=== PATIENT | female | born 1965 | race Caucasian/White ===

== ENCOUNTER 2020-11-20 14:02 | Emergency (ER) | payer MEDICAID, SELFPAY ==
[2020-11-20 14:12] VITALS: BP 133/83; PULSE 81; RESP 14; TEMP 37.3; O2SAT 97; BMI 26.4
--- NOTE | 2020-11-20 14:28 | ED.HEATRA ---
HPI - Head Injury General Chief complaint: Head Injury Stated complaint: HEAD INJ AT HOME Time Seen by Provider: 11/20/20 14:25 Source: patient Mode of arrival: ambulatory Limitations: no limitations History of Present Illness HPI Narrative: 55 yo female struck head on cabinet, no LOC, no AC therapy, no vomiting MD Complaint: head injury Onset (ago): minute(s) (just prior to arrival ) Mechanism of Injury: other (struck into cabinet) Place: home Loss of Consciousness: no Location of injury: parietal Severity: mild Quality: dull Radiation: none Other Injuries: none Associated symptoms: other (laceration) Related Data Previous Rx's Medication Instructions Recorded syobvfpzyg-rzixzovjbnqie-nrxa 1 tab PO Q6H PRN #20 tab 11/20/20 cyclobenzaprine 10 mg PO TID PRN #14 tab 11/20/20 ondansetron 4 mg PO Q8H PRN #20 tab 11/20/20 Allergies Allergy/AdvReac Type Severity Reaction Status Date / Time apple [APPLE] Allergy Severe ITCHING IN Verified 11/20/20 14:15 THROAT pollen extracts [POLLEN] Allergy Unknown NASAL Verified 11/20/20 14:15 SYMPTOMS HAIR DYE Allergy Unknown UNKNOWN Uncoded 06/18/20 15:53 Review of Systems Review of Systems: Constitutional : No Fever, No Chills, No Fatigue ENT/Mouth : No sore throat, No Rhinorrhea Eyes: No Eye Pain, No Swelling, No Redness Cardiovascular : No Chest Pain, No SOB Respiratory : No Cough, No Sputum Gastrointestinal : No Nausea, No Vomiting Genitourinary : No Dysuria, No Urinary Frequency, No Hematuria, Musculoskeletal : No joint pain, No Myalgias, No Joint Swelling Skin : No Skin Lesions, No rash, pos skin lac Neuro : No Weakness, No Numbness, No Dizziness, positive Headache Psych : No Anxiety/Panic, No Depression PMFSH Past Medical History Attestation statement: The following information was validated with the patient. Medical History Asthma Depression Gastritis High cholesterol HTN (hypertension) Vitamin D deficiency Social History Social History (Updated 11/20/20 @ 14:30 by Anna Richter DO) Smoking Status: Never smoker Advance Directives: No Advance Directives Information Provided: No Physical Exam Vital Signs: Vital Signs: Last Vital Signs Temp 99.2 F 11/20/20 14:12 Pulse 81 11/20/20 14:12 Resp 14 11/20/20 14:12 BP 133/83 11/20/20 14:12 Pulse Ox 97 11/20/20 14:12 Body Mass Index 26.4 Appearance: Alert. Oriented X3. No acute distress. Eyes: Pupils equal, round and reactive to light. ENT: Pharynx normal. L parietal dome 2cm linear laceration bleeding controlled Neck: Normal inspection. Neck supple. CVS: Normal heart rate and rhythm. Pulses normal. Respiratory: No respiratory distress. Breath sounds normal. Abdomen: Soft and nontender. Skin: Skin warm and dry. Normal skin color. Normal skin turgor. Extremities: No lower extremity edema. No calf ttp Neuro: Oriented X 3. No motor deficit. No sensory deficit. Procedures Laceration Laceration 1: Site: scalp Side (If applicable): left Size (cm): 2 Description: linear Depth: simple, single layer Pre-repair: wound explored and irrigated extensively Skin layer closed with: other (3 iban) MDM - Head Injury MDM Narrative Medical decision making narrative: 55 yo female struck head injury no AC therapy, no LOC - no vomiting GCS 15 does not need imaging wound repair and DC with precautions Discharge Plan Discharge Clinical Impression: Laceration Closed head injury Qualifiers: Encounter type: initial encounter Qualified Code(s): S09.90XA - Unspecified injury of head, initial encounter Patient Disposition: Home, Self-Care Instructions: Head Injury (ED), Staple Care (ED), Head Laceration (ED) Additional Instructions: return to ED for any worsening symptoms or concerns IBAN COME OUT IN 7 TO 10 DAYS Prescriptions: New cyclobenzaprine 10 mg tablet 10 mg PO TID PRN (Reason: muscle spasm) Qty: 14 RF: 0 mmjtbshjft-ktzgsgdpjpjif-ilfo 50-325-40 mg tablet 1 tab PO Q6H PRN (Reason: pain) Qty: 20 RF: 0 ondansetron 4 mg tablet,disintegrating 4 mg PO Q8H PRN (Reason: nausea and vomiting) Qty: 20 RF: 0 Print Language: Malay
== END 2020-11-20 14:59 | disposition home or self-care (01) ==
PROVIDERS: Emergency Provider Emergency Medicine
DX: S01.01XA Laceration without foreign body of scalp, initial encounter (principal); G44.309 Post-traumatic headache, unspecified, not intractable; W26.9XXA Contact with unspecified sharp object(s), initial encounter; Y93.9 Activity, unspecified; Y92.009 Unspecified place in unspecified non-institutional (private) residence as the place of occurrence of the external cause; Y99.9 Unspecified external cause status
CPT/HCPCS: 12001; 99283

== ENCOUNTER 2020-11-30 10:21 | Emergency (ER) | payer MEDICAID, SELFPAY ==
--- NOTE | 2020-11-30 10:42 | ED.RECABL ---
HPI - Recheck/Abnormal Lab/Rx General Chief Complaint: Skin/Abscess/Foreign Body Stated Complaint: suture removal head Time Seen by Provider: 11/30/20 10:42 Source: patient Mode of arrival: ambulatory Limitations: no limitations History of Present Illness MD complaint: suture/staple removal Initial visit (ago): day(s) (11/20) Initial visit for: laceration Returns today for: staple/stitch removal Symptoms since prior visit: no new symptoms Context: planned re-check Associated symptoms: none Related Data Previous Rx's Medication Instructions Recorded grylnknkym-gugghvvrtshty-dapv 1 tab PO Q6H PRN #20 tab 11/20/20 cyclobenzaprine 10 mg PO TID PRN #14 tab 11/20/20 ondansetron 4 mg PO Q8H PRN #20 tab 11/20/20 Allergies Allergy/AdvReac Type Severity Reaction Status Date / Time apple [APPLE] Allergy Severe ITCHING IN Verified 11/30/20 10:49 THROAT pollen extracts [POLLEN] Allergy Unknown NASAL Verified 11/30/20 10:49 SYMPTOMS HAIR DYE Allergy Unknown UNKNOWN Uncoded 06/18/20 15:53 Review of Systems Review of Systems: Constitutional : No Fever, No Chills, Cardiovascular : No Chest Pain, No SOB Respiratory : No Dyspnea Gastrointestinal : No abdominal pain Musculoskeletal : No Joint Swelling Skin : No rash, no skin laceration Neuro : No Weakness, No Numbness PMFSH Past Medical History Medical History Asthma Depression Gastritis High cholesterol HTN (hypertension) Vitamin D deficiency Social History Social History Smoking Status: Never smoker Physical Exam Vital Signs: Appearance: Alert. Oriented X3. No acute distress. Eyes: Pupils equal, round and reactive to light. ENT: Pharynx normal. well healing laceration on scalp wound margins together c/d/i no signs of infection Neck: Normal inspection. Neck supple. CVS: Normal heart rate and rhythm. Pulses normal. Respiratory: No respiratory distress. Breath sounds normal. Skin: Skin warm and dry. Normal skin color. Normal skin turgor. Neuro: Oriented X 3. No motor deficit. No sensory deficit. Procedures Procedure Narrative Procedure Narrative: patient consent, wound c/d/i good healing - removed 3 emeka without incident, patient tolerated well Discharge Plan Discharge Clinical Impression: Removal of emeka Patient Disposition: Home, Self-Care Instructions: Stitches Removal (ED) Additional Instructions: return to ED for any worsening symptoms or concerns Prescriptions: No Action cyclobenzaprine 10 mg tablet 10 mg PO TID PRN (Reason: muscle spasm) Qty: 14 RF: 0 wrdolyjszm-viuonkduqinhw-cplo 50-325-40 mg tablet 1 tab PO Q6H PRN (Reason: pain) Qty: 20 RF: 0 ondansetron 4 mg tablet,disintegrating 4 mg PO Q8H PRN (Reason: nausea and vomiting) Qty: 20 RF: 0 Print Language: St Helenian
[2020-11-30 10:47] VITALS: BP 147/59; PULSE 68; RESP 18; TEMP 36.6; O2SAT 96; BMI 25.6
== END 2020-11-30 11:01 | disposition home or self-care (01) ==
LOC: HO.ED 10:56
PROVIDERS: Emergency Provider Emergency Medicine
DX: S01.01XD Laceration without foreign body of scalp, subsequent encounter (principal); X58.XXXD Exposure to other specified factors, subsequent encounter; Z48.02 Encounter for removal of sutures
CPT/HCPCS: 99283

== ENCOUNTER 2021-01-05 12:39 | Outpatient (REF) | payer MEDICAID, SELFPAY ==
--- NOTE | ~2021-01-05 | MM_ITS ---
EXAMINATION: MM DIAGNOSTIC DIGITAL BREAST TOMOSYNTHESIS, BILATERAL CLINICAL INFORMATION: Short interval follow-up to establish new baseline post benign bilateral stereotactic biopsy 06/23/2020. The lifetime risk of breast cancer based on the Tyrer-Cuzick Model is 8%. COMPARISON: Mammography: 06/23/2020, 06/10/2020, 12/16/2019, 06/17/2019, 06/11/2019, 05/25/2018 TECHNIQUE: Digital breast tomosynthesis is performed in both the craniocaudal and mediolateral oblique views along with computer-aided detection (CAD). Synthesized 2D images are generated from the tomosynthesis. Additional bilateral magnification CC and bilateral magnification lateral views are provided. FINDINGS: The breasts are heterogeneously dense, which may obscure small masses (ACR BI-RADS breast composition Category c). Parenchymal pattern is similar to prior studies. There is a stable macrolobulated mass anterior medial left breast. Bilateral parenchymal asymmetries are stable. There is biopsy clip marker left breast upper outer quadrant and right breast medial quadrant. Scattered regional calcifications are again present upper outer left breast and central and upper outer right breast. There are no recurrent calcifications in the sampled areas. The axilla and skin contours are unremarkable. Results are provided to the patient at time of visit by the technologist. MM/MM tomosynthesis diagnostic BI IMPRESSION: No mammographic evidence of malignancy. ASSESSMENT: BI-RADS 2: Benign RECOMMENDATION: Routine annual mammography screening. This patient's information was entered into a reminder system with a target due date for their next mammogram.
== END 2021-01-05 12:40 | disposition home or self-care (01) ==
LOC: HO.MAMMO 12:39
PROVIDERS: Visit Provider Internal Medicine Geriatric Medicine
DX: Z98.890 Other specified postprocedural states (principal)
CPT/HCPCS: 77062; 77066

== ENCOUNTER 2021-12-16 10:11 | Outpatient (REF) | payer MEDICAID, SELFPAY ==
--- NOTE | 2021-12-16 10:15 | EMG_ITS ---
Left median and ulnar motor and sensory studies were performed. Left radial sensory study was performed and paraspinal muscles were tested. IMPRESSION: 1. 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 2. Mild left ulnar neuropathy across cubital tunnel. MD CLARI Woodson/SOTERO / [phone]
== END 2021-12-16 10:12 | disposition home or self-care (01) ==
LOC: HO.NEURO 10:11
PROVIDERS: PCP Internal Medicine Geriatric Medicine; Visit Provider Internal Medicine Geriatric Medicine
DX: G56.02 Carpal tunnel syndrome, left upper limb (principal)
CPT/HCPCS: 95886; 95909

== ENCOUNTER 2022-01-06 09:59 | Outpatient (REF) | payer MEDICAID, SELFPAY ==
--- NOTE | ~2022-01-06 | MM_ITS ---
EXAMINATION: MM SCREENING DIGITAL BREAST TOMOSYNTHESIS, BILATERAL CLINICAL INFORMATION: Screening. Asymptomatic. Status post bilateral benign stereotactic core biopsies. The lifetime risk of breast cancer based on the Tyrer-Cuzick Model is 4.5%. COMPARISON: Mammography: January 05, 2021 and studies dating back to February 11, 2014 TECHNIQUE: Digital breast tomosynthesis is performed in both the craniocaudal and mediolateral oblique views along with computer-aided detection (CAD). Synthesized 2D images are generated from the tomosynthesis. FINDINGS: The breasts are heterogeneously dense, which may obscure small masses (ACR BI-RADS breast composition Category c). There are no new significant masses, abnormal calcifications, or other abnormalities. There is multiplicity and bilaterality of calcifications again noted. There is stable circumscribed density about the anterior medial aspect of the left breast. MM/MM tomosynthesis screening BI IMPRESSION: There are no significant changes from prior study. ASSESSMENT: BI-RADS 2: Benign RECOMMENDATION: Routine annual mammography screening. This patient's information was entered into a reminder system with a target due date for their next mammogram.
== END 2022-01-06 10:00 | disposition home or self-care (01) ==
LOC: HO.MAMMO 09:59
PROVIDERS: PCP Internal Medicine Geriatric Medicine; Visit Provider Internal Medicine Geriatric Medicine
DX: Z12.31 Encounter for screening mammogram for malignant neoplasm of breast (principal)
CPT/HCPCS: 77063; 77067

== ENCOUNTER 2022-05-16 10:20 | Outpatient (REF) | payer MEDICAID, SELFPAY ==
--- NOTE | ~2022-05-16 | XR_ITS ---
EXAMINATION: XR SHOULDER, RIGHT CLINICAL INFORMATION: History of fall and decreased range of motion. COMPARISON: CXR from 12/23/2018. TECHNIQUE: Four views of the right shoulder. FINDINGS: No acute findings. The humeral head is well positioned over the intact glenoid. Glenohumeral joint space is maintained. No arthritic deformity, fracture or subluxation. Acromioclavicular joint is normal. The acromiohumeral and coracoclavicular distances are normal. Scapula is unremarkable. No calcium deposition within rotator cuff tendons. The right lung is normal. No pneumothorax or pleural effusion. XR/XR shoulder RT min 2V IMPRESSION: No fracture or subluxation. Normal right shoulder.
== END 2022-05-16 10:21 | disposition home or self-care (01) ==
LOC: HO.XRAY 10:20
PROVIDERS: PCP Internal Medicine Geriatric Medicine; Visit Provider Internal Medicine
DX: M25.511 Pain in right shoulder (principal); Z91.81 History of falling
CPT/HCPCS: 73030

== ENCOUNTER 2023-01-12 09:41 | Outpatient (REF) | payer MEDICAID, SELFPAY ==
--- NOTE | ~2023-01-12 | MM_ITS ---
EXAMINATION: MM SCREENING DIGITAL BREAST TOMOSYNTHESIS, BILATERAL CLINICAL INFORMATION: Screening. Asymptomatic. The lifetime risk of breast cancer based on the Tyrer-Cuzick Model is 5%. COMPARISON: Multiple prior exams including most recent, 01/06/2022. TECHNIQUE: Digital breast tomosynthesis is performed in both the craniocaudal and mediolateral oblique views along with computer-aided detection (CAD). Synthesized 2D images are generated from the tomosynthesis. FINDINGS: The breasts are heterogeneously dense, which may obscure small masses (ACR BI-RADS breast composition Category c). There are scattered bilateral asymmetries similar to prior exams. No developing density or interval mass or architectural abnormality. There is old biopsy clip marker mid upper outer quadrant left breast and posterior central 3:00 right breast. Scattered bilateral fine round calcifications are again seen. No abnormal calcifications. Chronic benign smooth oval nodule anterior 8:00 left breast is slightly decreased in size. The axilla are unremarkable. The skin contours are smooth. MM/MM tomosynthesis screening BI IMPRESSION: No mammographic evidence of malignancy. ASSESSMENT: BI-RADS 2: Benign RECOMMENDATION: Routine annual mammography screening. This patient's information was entered into a reminder system with a target due date for their next mammogram.
== END 2023-01-12 09:42 | disposition home or self-care (01) ==
LOC: HO.MAMMO 09:41
PROVIDERS: PCP Internal Medicine Geriatric Medicine; Visit Provider Internal Medicine Geriatric Medicine
DX: Z12.31 Encounter for screening mammogram for malignant neoplasm of breast (principal)
CPT/HCPCS: 77063; 77067

== ENCOUNTER 2023-02-17 09:47 | Outpatient (REF) | payer MEDICAID, SELFPAY ==
--- NOTE | ~2023-02-17 | XR_ITS ---
EXAMINATION: XR SHOULDER, LEFT CLINICAL INFORMATION: Left shoulder pain. COMPARISON: None available. TECHNIQUE: AP external rotation, scapular Y, and axillary views of the left shoulder. FINDINGS: Glenohumeral and acromioclavicular alignment is anatomic with normal joint space. No displaced fracture or dislocation. No abnormal soft tissue calcifications. XR/XR shoulder LT min 2V IMPRESSION: No acute abnormality.
== END 2023-02-17 09:48 | disposition home or self-care (01) ==
LOC: HO.HOSX 09:47
PROVIDERS: PCP Internal Medicine Geriatric Medicine; Visit Provider Physician Assistant
DX: M75.82 Other shoulder lesions, left shoulder (principal)
CPT/HCPCS: 20610; 73030; 99202; J1040

== ENCOUNTER 2023-09-02 11:00 | Emergency (ER) | payer MEDICAID, SELFPAY ==
--- NOTE | ~2023-09-02 | XR_ITS ---
EXAMINATION: XR CHEST CLINICAL INFORMATION: Chest radiograph 12/23/2018 COMPARISON: None available. TECHNIQUE: 2 views of the chest were obtained. FINDINGS: Redemonstrated elevated right hemidiaphragm. No focal consolidation. No pleural effusion or pneumothorax. Cardiomediastinal silhouette is unchanged. XR/XR chest 2V IMPRESSION: No acute cardiopulmonary abnormality.
[2023-09-02 11:27] VITALS: BP 133/76; PULSE 67; RESP 18; TEMP 36.6; O2SAT 96; BMI 25.5
--- NOTE | 2023-09-02 11:27 | ED.URI ---
HPI - URI/Sore Throat General Chief Complaint: Upper Respiratory Symptoms Stated Complaint: flu like symptoms Time Seen by Provider: 09/02/23 12:47 Source: patient Mode of arrival: ambulatory Limitations: no limitations History of Present Illness HPI Narrative: Patient is a 58-year-old female with past medical history of hypertension, migraine headache, GERD, asthma who presents emergency department for evaluation respiratory symptoms. She reports a intermittent productive cough, shortness of breath, intermittent headache, nasal congestion, SOB with coughing episodes. progressively worsening. Denies known sick contacts, but is around young grandchildren. Related Data Home Medications Medication Instructions Recorded Confirmed acetaminophen 500 mg tablet 1,000 mg PO Q8H PRN pain 02/17/23 02/18/23 albuterol sulfate 90 mcg/actuation 2 puff inhalation Q4-6H PRN 02/17/23 02/18/23 aerosol inhaler (Proventil HFA) amlodipine 5 mg tablet 5 mg PO DAILY 02/17/23 02/18/23 amoxicillin 500 mg capsule 500 mg PO Q8H 02/17/23 02/18/23 atorvastatin 20 mg tablet 20 mg PO DAILY 02/17/23 02/18/23 cetirizine 10 mg tablet 10 mg PO DAILY 02/17/23 02/18/23 cholecalciferol (vitamin D3) 50 50 mcg PO DAILY 02/17/23 02/18/23 mcg (2,000 unit) tablet fluticasone propionate 110 1 puff inhalation BID 02/17/23 02/18/23 mcg/actuation HFA aerosol inhaler (Flovent HFA) lorazepam 0.5 mg tablet 0.5 mg PO BID PRN anxiety 02/17/23 02/18/23 olopatadine 0.1 % eye drops 1 drp ophthalmic (eye) BID 02/17/23 02/18/23 pantoprazole 20 mg tablet,delayed 20 mg PO QAM 02/17/23 02/18/23 release trazodone 50 mg tablet 50 mg PO BEDTIME PRN insomnia 02/17/23 02/18/23 Previous Rx's Medication Instructions Recorded ihmuytfxdn-owkchzdfquxxd-fzjvxcad 1 tab PO Q6H PRN pain #20 tabs 11/20/20 50 mg-325 mg-40 mg tablet ondansetron 4 mg disintegrating 4 mg PO Q8H PRN nausea and 11/20/20 tablet vomiting #20 tabs albuterol sulfate 90 mcg/actuation 2 puff inhalation Q4-6H PRN 09/02/23 aerosol inhaler shortness of breath or wheezing #6.7 grams azithromycin 250 mg tablet See Rx Instructions PO .COMPLEX #6 09/02/23 tabs prednisone 20 mg tablet 20 mg PO DAILY #5 tabs 09/02/23 Allergies Allergy/AdvReac Type Severity Reaction Status Date / Time apple [APPLE] Allergy Severe ITCHING IN Verified 02/17/23 10:00 THROAT pollen extracts [POLLEN] Allergy Unknown NASAL Verified 02/17/23 10:00 SYMPTOMS HAIR DYE Allergy Unknown UNKNOWN Uncoded 06/18/20 15:53 Review of Systems Review of Systems: Yes all other systems are reviewed and are negative PMFSH Past Medical History Attestation statement: The following information was validated with the patient. Source: old records reviewed Medical History Vitamin D deficiency Depression Asthma Gastritis High cholesterol HTN (hypertension) Social History Social History (Updated 02/17/23 @ 10:04 by Nida Nielsen) Alcohol intake: former Patient Tobacco Use Status: Never used Tobacco Advance Directives: No Advance Directives Information Provided: No Current occupational status: disabled Current occupation: right hand dominant Physical Exam Vital Signs: Vital Signs: Last Vital Signs Temp 97.9 F 09/02/23 11:27 Pulse 67 09/02/23 11:27 Resp 18 09/02/23 11:27 BP 133/76 09/02/23 11:27 Pulse Ox 96 09/02/23 11:27 O2 Del Method Room Air 09/02/23 11:27 BMI result Body Mass Index 25.5 Appearance: Alert.?Oriented to person, place and time. No acute distress.?Normal affect. Eyes: Pupils equal, round and reactive to light.? ENT: Pharynx normal.?? Neck: Normal inspection.? Neck supple.?? CVS: Heart sounds normal. Normal heart rate and rhythm.? Pulses normal.?? Respiratory: No respiratory distress.? Lung sounds with rhonchi at the bilateral a bacillus. No increased work of breathing. Abdomen: Soft and non-tender. Normoactive bowel sounds. No pulsatile mass.?? Skin: Skin warm and dry.? Normal skin color.? Normal skin turgor.?? Extremities: No lower extremity edema.? No calf ttp? Neuro: Moves all extremities spontaneously. Sensation intact bilaterally. Ambulates with normal steady gait. Medical Decision Making Medical Decision Making [facility] Narrative: Patient is a 58-year-old female presenting for evaluation of upper respiratory symptoms. COVID-19/influenza/RSV testing is negative. Chest x-ray without acute cardiopulmonary process. At this time history and physical exam not consistent with ACS/PE. Well-appearing, nontoxic, afebrile, no tachycardia or tachypnea/hypoxia. Symptoms at this time consistent with bronchitis. Speaking clear full sentences, ambulatory with steady gait. Discussed conservative treatment including rest, hydration, Tylenol/ibuprofen as needed for fever and body aches, saline nasal spray, humidifier, gegl-pwm-zbbiheh cold medication in addition have sent prescriptions for prednisone, albuterol, and azithromycin to pharmacy. Advised to follow-up with primary care provider as needed, discussed reasons to return back to the emergency department. All questions were answered. Patient discharged home in stable condition. Provided with a return to work/school note. Differential Diagnosis Differential Diagnoses: The differential diagnosis associated with the presentation includes (As noted above) Lab Data [facility] Lab Attestation statement: I reviewed the patient's lab results. (As noted above) Labs: Lab Results 09/02/23 Range/Units 11:42 Influenza Type A (PCR) NEGATIVE (Negative) Influenza Type B (PCR) NEGATIVE (Negative) RSV RNA Qual (PCR) NEGATIVE (Negative) SARS-CoV-2 RNA (RT-PCR) NEGATIVE (Negative) Independent Interpretation I performed an independent interpretation of an: Plain X-Ray (I personally interpreted chest x-ray and agree with radiologist impression) Radiology Impression Discussion of test interpretation with radiology: I have reviewed the radiologist's reading. Radiologist Impression: XR/XR chest 2V IMPRESSION: No acute cardiopulmonary abnormality. External Record Review External record reviewed: Outpatient record Prescription Management I considered prescription management with: Antibiotic Discharge Plan Discharge Clinical Impression: Bronchitis Patient Disposition: Home, Self-Care Instructions: Acute Bronchitis (ED) Prescriptions: New prednisone 20 mg tablet 20 mg PO DAILY Qty: 5 0RF azithromycin 250 mg tablet See Rx Instructions .ROUTE .COMPLEX Qty: 6 0RF Rx Instructions: For 250 mg dose pack: take 500 mg today (day 1), then 250 mg for 4 days (days 2-5) albuterol sulfate 90 mcg/actuation HFA aerosol inhaler 2 puff inhalation Q4-6H PRN (Reason: shortness of breath or wheezing) Qty: 6.7 0RF No Action afjxzolfke-fluyonhporoph-alxp 50-325-40 mg tablet 1 tab PO Q6H PRN (Reason: pain) Qty: 20 0RF ondansetron 4 mg tablet,disintegrating 4 mg PO Q8H PRN (Reason: nausea and vomiting) Qty: 20 0RF amlodipine 5 mg tablet 5 mg PO DAILY cetirizine 10 mg tablet 10 mg PO DAILY atorvastatin 20 mg tablet 20 mg PO DAILY lorazepam 0.5 mg tablet 0.5 mg PO BID PRN (Reason: anxiety) trazodone 50 mg tablet 50 mg PO BEDTIME PRN (Reason: insomnia) acetaminophen 500 mg tablet 1,000 mg PO Q8H PRN (Reason: pain) pantoprazole 20 mg tablet,delayed release (DR/EC) 20 mg PO QAM amoxicillin 500 mg capsule 500 mg PO Q8H cholecalciferol (vitamin D3) 50 mcg (2,000 unit) tablet 50 mcg PO DAILY albuterol sulfate [Proventil HFA] 90 mcg/actuation HFA aerosol inhaler 2 puff inhalation Q4-6H PRN fluticasone propionate [Flovent HFA] 110 mcg/actuation HFA aerosol inhaler 1 puff inhalation BID olopatadine 0.1 % drops 1 drp ophthalmic (eye) BID Referrals: Name,MD Storm [Primary Care Provider] - Interventions: ED Discharge Assessment Last Done: 09/02/23 13:08 Discharge Date/Time: 09/02/23 13:08
[2023-09-02 12:31] LABS: Influenza A PCR NEGATIVE (Negative); Influenza B PCR NEGATIVE (Negative); Resp Syncy Virus RNA Qual PCR NEGATIVE (Negative); SARS COV2 PCR INHOUSE NEGATIVE (Negative)
== END 2023-09-02 13:08 | disposition home or self-care (01) ==
PROVIDERS: Nurse Practitioner Family; Emergency Provider Emergency Medicine; PCP Internal Medicine Geriatric Medicine
DX: J40 Bronchitis, not specified as acute or chronic (principal); Z20.822 Contact with and (suspected) exposure to COVID-19; Z20.828 Contact with and (suspected) exposure to other viral communicable diseases
CPT/HCPCS: 0241U; 71046; 99282; 99283

== ENCOUNTER 2023-10-05 15:18 | Emergency (ER) | payer MEDICAID, SELFPAY | END 2023-10-05 17:55 | disposition left against medical advice (07) | PROVIDERS: Emergency Provider Emergency Medicine; PCP Internal Medicine Geriatric Medicine | DX: R50.9 Fever, unspecified (principal); J40 Bronchitis, not specified as acute or chronic; Z53.21 Procedure and treatment not carried out due to patient leaving prior to being seen by health care provider ==

== ENCOUNTER 2023-10-16 10:51 | Outpatient (AMB) | payer MEDICAID, SELFPAY ==
--- NOTE | 2023-10-16 10:59 | MHC.OFFVIS ---
Intake Intake Visit Reasons: ov- left shoulder pain Intake Note: Merna is a 57 year old right hand dominant female who presents today for a evaluation for her left shoulder pain, last injection 02/17/23 helped and would like to repeat injection today. Patient also mentioned she has a left wrist ganglion cyst that has grown in size since approx March 2023. States she would like to have this removed. Allergies apple [APPLE] Allergy (Severe, Verified 02/17/23 10:00) ITCHING IN THROAT pollen extracts [POLLEN] Allergy (Unknown, Verified 02/17/23 10:00) NASAL SYMPTOMS HAIR DYE Allergy (Unknown, Uncoded 06/18/20 15:53) UNKNOWN HPI ov- left shoulder pain HPI Details 58-year-old right hand dominant female who returns to the office today with an cardiac/vascular sonographer for a follow-up of left shoulder pain. She continues to have pain in her left shoulder which radiates up to her neck. Her pain is aggravated with sleeping at her sides. She has not had started with physical therapy. She has her last injection on 02/17/23 which provided her relief for about 4 months. She would like to repeat the injection. She also c/o a cyst on her left wrist which has grown in size since March 2023. She would like to have the cyst removed. [facility] Medical History Vitamin D deficiency Depression Asthma Gastritis High cholesterol HTN (hypertension) Social History (Updated 02/17/23 @ 10:04 by Nida Nielsen) Alcohol intake: former Patient Tobacco Use Status: Never used Tobacco Current occupational status: disabled Current occupation: right hand dominant Review of Systems Const All systems reviewed & are unremarkable except as noted in HPI and below Physical Exam Const General: cooperative, healthy appearing, comfortable, no acute distress, well developed and alert Orientation/consciousness: patient oriented x3 HEENT Head: Yes normal to inspection, Yes normocephalic and Yes atraumatic Eyes General: appearance normal, both eyes and all related structures Resp Effort & Inspection: normal respiratory effort and able to speak in complete sentences Cardio Rate: regular rate Peripheral pulses: Peripheral pulses 2+ throughout GI Palpation (GI): Soft to palpation Skin Lesions: no lesions Rashes: no rashes Neuro General: patient oriented x3 Extrem Other: Left shoulder normal to inspection. Tenderness over the bicipital groove and along the deltoid region of the shoulder. Forward flexion to 175, external rotation to 90, internal rotation to S1. 5/5 RTC strength. Clay Landin. NVI. Office Procedures Joint Injection/Drain Joint Injection/Drain Primary Site: left shoulder Prep: site was prepped using aseptic technique, ethochloride spray was applied and injection warnings given Injected: 80 mg of, DepoMedrol, with 8 mL of, 1% plain lidocaine and in the subcromial space Approach Used: posterolateral Procedure: The patient tolerated the procedure well and there was some relief with the local anesthesia Coding 53576 - Glenohumeral/Tronchanteric Bursa/Intraarticular Procedure code (CPT) selection complete Assessment & Plan Assessment & Plan (1) Tendonitis of left rotator cuff: Code(s): M75.82 - Other shoulder lesions, left shoulder Plan We discussed options today which include steroid injection. They did consent to move forward with the left shoulder injection, which was tolerated well. I recommended rest, ice and elevation and OTC anti-inflammatories PRN for discomfort. If symptoms persist or worsens over the next 6-8 weeks, patient will contact the office, otherwise follow-up as needed. Orders: Orders PT Evaluation and Treatment Today M75.82 - Other shoulder lesions, left shoulder Patient Instructions: Scribed for Fawad Mccurdy PA-C, by Evert Sutton medical artist, on 10/16/2023 at 11:00 AM ALISSA. Fawad Garrett PA-C, have personally reviewed and agree with the information entered by the scribe. Coding Level of Care Code Est Pt Level 3 (13766) Diagnoses Tendonitis of left rotator cuff M75.82 CPT Codes Coding - Joint 7: 22476 - Glenohumeral/Tronchanteric Bursa/Intraarticular ([id number])
== END 2023-10-16 11:45 | disposition home or self-care (01) ==
PROVIDERS: PCP Internal Medicine Geriatric Medicine; Visit Provider Physician Assistant
DX: M75.82 Other shoulder lesions, left shoulder (principal)
CPT/HCPCS: 20610; 99213

== ENCOUNTER → 2023-10-16 10:51 | Outpatient (BNVA) | payer MEDICAID, SELFPAY | PROVIDERS: PCP Internal Medicine Geriatric Medicine; Visit Provider Physician Assistant | DX: M75.82 Other shoulder lesions, left shoulder (principal) | CPT/HCPCS: 20610; 99212; J1040 ==

== ENCOUNTER 2023-10-31 13:39 | Outpatient (RCR) | payer MEDICAID, SELFPAY ==
--- NOTE | 2023-10-31 14:45 | MHC.PT.EP ---
[facility] [place] Office [place] Office [place] Office [address] [place] [address] [phone] F: [phone] F: [phone] F: [phone] F: [phone] Physical Therapy Plan of Care Date of Evaluation: 10/31/23 Date of Surgery: N/A Diagnosis: tendonitis of left shoulder (RL) Assessment: pt is a 58 y/o female presenting to physical therapy w/ referring diagnosis of tendinitis of left shoulder cuff. Impairments include pain, decreased range of motion, decreased strength, impaired functional mobility, impaired postural awareness, and altered ambulation mechanics. pt is a good candidate for skilled PT due to age, potential remediation of impairments, typical disease/condition progression and prognosis, comorbidities, and motivation. pt would benefit from skilled PT intervention to provide a tailored strengthening and stretching exercise program, functional training, gait training, postural re-training, neuromuscular re-education, modalities as needed for pain, equipment safety demonstration. Frequency and Duration: The patient will be seen 2x/wk for 4 wks Short Term Goals: pt will be I w/ HEP to promote self-management of condition. pt will demo proper sitting posture w/ lumbar roll to promote neutral spine w/ seated ADLs. Residential Goals: pt will report a statistically significant improvement in self-reported outcome measure, SPADI, to promote return to PLOF. pt will improve B shoulder flexion by at least 15 degrees to promote ease in reaching for objects on higher shelves. Treatment Plan: Modalities to reduce pain, spasms and effusion. Manual therapy to restore motion and function. Therapeutic exercise to improve strength and flexibility. Neuromuscular re-education for posture and balance. Therapeutic activities to return to functional activities of daily living. Electronically signed by: Ashlyn Duran PT, DPT Please sign and return to therapist. Thank you for your referral.
--- NOTE | 2023-11-16 10:35 | MHC.PT.DC ---
[facility] [place] Office [place] Office [place] Office [address] [place] [address] [facility] [phone] F: [phone] F: [phone] F: [phone] F: [phone] Physical Therapy Discharge Report Diagnosis: tendonitis of left shoulder (RL) Date of Surgery: N/A Date of Evaluation: 10/31/23 Date of Discharge: 11/16/23 Treatments to Date: 1 Cancellations to Date: 3 No Shows to Date: 2 Discharge Status: Visit Non-compliance Discharge Summary: The patient has not attended any of her scheduled follow-ups after the initial evaluation. She is discharged for attendance non-compliance. Electronically signed by: Ashlyn Duran PT, DPT Please sign and return to therapist. Thank you for your referral.
== END 2023-11-16 10:35 | disposition home or self-care (01) ==
LOC: HO.PT 13:39
PROVIDERS: PCP Internal Medicine Geriatric Medicine; Visit Provider Physician Assistant
DX: M75.82 Other shoulder lesions, left shoulder (principal)
CPT/HCPCS: 97110; 97162

== ENCOUNTER 2023-11-14 14:35 | Outpatient (AMB) | payer MEDICAID, SELFPAY ==
--- NOTE | 2023-11-14 15:29 | MHC.OFFVIS ---
Intake Vital Signs 11/14/23 15:30 Height 5 ft 1 in Weight 135 lb BMI 25.5 Handedness Right Intake Visit Reasons: Newprob-Eval Lt wrist ganglion Intake Note: Merna is a 58 year old right hand dominant female who presents today for a evaluation of her left wrist pain. Patient reports that she noticed a lump on the wrist for about a year. She states with movements her pain is worse and she notices that it gets bigger as well. Allergies apple [APPLE] Allergy (Severe, Verified 11/14/23 15:34) ITCHING IN THROAT pollen extracts [POLLEN] Allergy (Unknown, Verified 11/14/23 15:34) NASAL SYMPTOMS HAIR DYE Allergy (Unknown, Uncoded 06/18/20 15:53) UNKNOWN HPI Newprob-Eval Lt wrist ganglion HPI Details Merna is a 58 year old right hand dominant Mongolian speaking woman who presents to discuss a painful left volar wrist mass. She says this has been present for ~1 year now, changing in size, and causing her pain with use or motion of her wrist. She is concerned this mass may be related to her left RTC tendinitis She would like to discuss treatment options. She denies any numbness. [facility] Medical History Vitamin D deficiency Depression Asthma Gastritis High cholesterol HTN (hypertension) Social History Alcohol intake: former Patient Tobacco Use Status: Never used Tobacco Current occupational status: disabled Current occupation: right hand dominant Review of Systems Const All systems reviewed & are unremarkable except as noted in HPI and below Physical Exam Vital Signs: BMI result Body Mass Index 25.5 Const General: cooperative, healthy appearing and no acute distress Orientation/consciousness: patient oriented x3 HEENT Head: Yes normocephalic and Yes atraumatic Eyes EOM: EOMs intact bilaterally Resp Effort & Inspection: normal respiratory effort and able to speak in complete sentences Cardio Jugular venous distension: no JVD Skin General skin exam: turgor normal Rashes: no rashes Neuro General: patient oriented x3 Extrem Other: Evaluation of Left Upper Extremity: The patient is alert, oriented, and in no acute distress Neuro: Median, Ulnar, Radial nerves motor and sensory grossly intact. Vascular: Cap refill brisk ROM: She can make a fist and extend all her digits No locking or catching Skin: No lacerations or abrasions. General: No Ecchymosis. No Erythema or evidence of infection. There is a mass on the volar aspect of her left wrist, ~2.5cm proximal to the distal wrist crease radial to the FCR tendon. This measures ~1cm in diameter. Good fill from the ulnar side with Kamran's test. I can feel her radial pulse associated with the ganglion Psych Appearance: grossly normal Affect: normal affect Attitude: cooperative Assessment & Plan Assessment & Plan (1) Ganglion cyst of volar aspect of left wrist: Code(s): M67.432 - Ganglion, left wrist (2) Heart murmur: Code(s): R01.1 - Cardiac murmur, unspecified Plan Assessment & Plan: 1. Left volar wrist ganglion ~2.5cm proximal to the distal wrist crease Measuring ~1cm in diameter I educated her about this condition I discussed operative and non-operative treatment options The patient would like to proceed with surgery The risks and benefits of operative treatment were discussed with the patient and the patient wishes to proceed with surgery. These risks include, but are not limited to risk of damage to blood vessels, nerves, tendons, infection, recurrence, incomplete relief of preoperative symptoms, persistent pain, possible need for further surgery and the risks associated with regional blocks and anesthesia. The plan is to take the patient to the operating room sometime in the next few weeks for the following procedures: 1. Left volar wrist ganglion excision, under general All of the preoperative paperwork including the consent was reviewed today. All the patient's questions were answered. The patient understands that they will be contacted by our assistant professor of surgery soon to schedule this procedure She denies Diabetes, blood thinners, asthma, lung, kidney issues She says she has a hx of a heart murmur, and she will need cardiac clearance prior to surgery Scribed for Emani Chavez MD by Mohan Armstrong medical professionals, on 11/14/23 at 3:55 PM, EST. Coding Level of Care Code New Pt Level 4 (03854) Diagnoses Ganglion cyst of volar aspect of left wrist M67.432 Heart murmur R01.1
[2023-11-14 15:30] VITALS: BMI 25.5
== END 2023-11-14 16:15 | disposition home or self-care (01) ==
PROVIDERS: PCP Internal Medicine Geriatric Medicine; Visit Provider Orthopaedic Surgery
DX: M67.432 Ganglion, left wrist (principal); R01.1 Cardiac murmur, unspecified
CPT/HCPCS: 99204

== ENCOUNTER → 2023-11-14 14:35 | Outpatient (BNVA) | payer MEDICAID, SELFPAY | PROVIDERS: PCP Internal Medicine Geriatric Medicine; Visit Provider Orthopaedic Surgery | DX: M67.432 Ganglion, left wrist (principal); R01.1 Cardiac murmur, unspecified | CPT/HCPCS: 99202 ==

== ENCOUNTER 2024-01-12 09:40 | Outpatient (REF) | payer MEDICAID, SELFPAY ==
[2024-01-12 12:50] LABS: Alanine Aminotransferase 14 U/L (0-31); Albumin Level 4.2 g/dL (3.5-5.0); Alkaline Phosphatase 78 U/L (39-117); Anion Gap 11 (12-20); Aspartate Amino Transferase 21 U/L (5-31); Bilirubin Total 0.5 mg/dL (0.0-1.0); Blood Urea Nitrogen 15 mg/dL (9-16); Carbon Dioxide 25 mmol/L (22-29); Chloride 109 mmol/L (96-108); Cholesterol 123 mg/dL (<200); Estimated Glomerular Filt Rate > 60; Glucose Random 86 mg/dL (60-115); HDL Cholesterol 43 mg/dL (>40); LDL Cholesterol Calculated 48 mg/dL (<100); Potassium 4.1 mmol/L (3.3-5.1); Sodium 141 mmol/L (135-145); Total Protein 7.3 g/dL (6.5-8.0); Triglycerides 160 mg/dL (<150)
== END 2024-01-12 09:41 | disposition home or self-care (01) ==
LOC: HO.HHCL 09:40
PROVIDERS: Visit Provider Internal Medicine Geriatric Medicine
DX: E78.00 Pure hypercholesterolemia, unspecified (principal)
CPT/HCPCS: 36415; 80053; 80061

== ENCOUNTER 2024-01-16 11:35 | Outpatient (REF) | payer MEDICAID, SELFPAY ==
--- NOTE | ~2024-01-16 | MM_ITS ---
EXAMINATION: MM SCREENING DIGITAL BREAST TOMOSYNTHESIS, BILATERAL CLINICAL INFORMATION: Screening. Asymptomatic. COMPARISON: Mammography: This study is compared with prior exams dating back to 2019. TECHNIQUE: Digital breast tomosynthesis is performed in both the craniocaudal and mediolateral oblique views along with computer-aided detection (CAD). Synthesized 2D images are generated from the tomosynthesis. FINDINGS: The breasts are heterogeneously dense, which may obscure small masses (ACR BI-RADS breast composition Category c). There are no significant masses, abnormal calcifications, or other abnormalities. There are tissue markers in each breast from prior benign percutaneous biopsies. Few, bilateral benign calcifications are present. MM/MM tomosynthesis screening BI IMPRESSION: No mammographic evidence of malignancy. ASSESSMENT: BI-RADS BI-RADS 2 - Benign Findings RECOMMENDATION: Routine annual mammography screening. 1 year F/U This examination should not preclude the clinical evaluation of a suspicious palpable abnormality. This patient's information was entered into a reminder system with a target due date for their next mammogram.
== END 2024-01-16 11:36 | disposition home or self-care (01) ==
LOC: HO.MAMMO 11:35
PROVIDERS: PCP Internal Medicine Geriatric Medicine; Visit Provider Internal Medicine Geriatric Medicine
DX: Z12.31 Encounter for screening mammogram for malignant neoplasm of breast (principal)
CPT/HCPCS: 77063; 77067

== ENCOUNTER → 2024-01-16 12:30 | Outpatient (BNV) | payer MEDICAID, SELFPAY | PROVIDERS: PCP Internal Medicine Geriatric Medicine; Visit Provider Radiology Diagnostic Radiology | DX: Z12.31 Encounter for screening mammogram for malignant neoplasm of breast (principal) | CPT/HCPCS: 77063; 77067 ==

== ENCOUNTER 2024-08-07 15:23 | Outpatient (AMB) | payer MEDICAID, SELFPAY ==
--- NOTE | 2024-08-07 15:26 | A.OFFVIS_ITS ---
Intake Visit Reasons: OV Lt shoulder injection, last injection 10/16/23 Intake Note: Merna a 59 year old female who presents today for a left shoulder injection, last injection 10/16/23. Patient reports last injection provided her with relief for 3 months. She is requesting to repeat injection. Allergies apple [APPLE] Allergy (Severe, Verified 11/14/23 15:34) ITCHING IN THROAT pollen extracts [POLLEN] Allergy (Unknown, Verified 11/14/23 15:34) NASAL SYMPTOMS HAIR DYE Allergy (Unknown, Uncoded 06/18/20 15:53) UNKNOWN Medication List - Last Reconciled 08/08/24 by Fawad Mccurdy PA-C acetaminophen 1,000 mg PO Q8H PRN albuterol sulfate 90 mcg/actuation 2 puffs inhalation Q4-6H PRN albuterol sulfate 90 mcg/actuation (Proventil HFA) 2 puffs inhalation Q4-6H PRN amlodipine 5 mg PO DAILY amoxicillin 500 mg PO Q8H atorvastatin 20 mg PO DAILY azithromycin For 250 mg dose pack: take 500 mg today (day 1), then 250 mg for 4 days (days 2-5) sxtyxuobem-cuvowpepzhack-gnly 50-325-40 mg 1 tab PO Q6H PRN cetirizine 10 mg PO DAILY cholecalciferol (vitamin D3) 50 mcg PO DAILY fluticasone propionate 110 mcg/actuation (Flovent HFA) 1 puff inhalation BID lorazepam 0.5 mg PO BID PRN olopatadine 0.1% 1 drp ophthalmic (eye) BID ondansetron 4 mg PO Q8H PRN pantoprazole 20 mg PO QAM prednisone 20 mg PO DAILY trazodone 50 mg PO BEDTIME PRN HPI HPI OV Lt shoulder injection, last injection 10/16/23: Details: 59-year-old female who returns to the office today for a follow-up of left shoulder pain. She had her last injection on 10/16/23 that provided her relief for 3 months. She would like to repeat the injection. [facility] Medical History Vitamin D deficiency Depression Asthma Gastritis High cholesterol HTN (hypertension) Social History Alcohol intake: former Patient Tobacco Use Status: Never used Tobacco Current occupational status: disabled Current occupation: right hand dominant Review of Systems Const All systems reviewed & are unremarkable except as noted in HPI and below Physical Exam Const General: cooperative, healthy appearing, comfortable, no acute distress, well developed and alert Orientation/consciousness: patient oriented x3 HEENT Head: Yes normal to inspection, Yes normocephalic and Yes atraumatic Eyes General: appearance normal, both eyes and all related structures Resp Effort & Inspection: normal respiratory effort and able to speak in complete sentences Cardio Rate: regular rate Peripheral pulses: Peripheral pulses 2+ throughout GI Palpation (GI): Soft to palpation Skin Lesions: no lesions Rashes: no rashes Neuro General: patient oriented x3 Extrem Other: Left shoulder normal to inspection. Tenderness over the bicipital groove and along the deltoid region of the shoulder. Forward flexion to 175, external rotation to 90, internal rotation to S1. 5/5 RTC strength. Postive Landin. NVI. Office Procedures AMB Joint Injection/Aspiration Joint Injection/Aspiration Primary Site: left shoulder Prep: site was prepped using aseptic technique, ethochloride spray was applied and injection warnings given Injected: 80 mg of, DepoMedrol, with 8 mL of, 1% plain lidocaine and in the subcromial space Approach Used: posterolateral Procedure: The patient tolerated the procedure well and there was some relief with the local anesthesia Coding 63152 - Glenohumeral/Tronchanteric Bursa/Intraarticular Procedure code (CPT) selection complete Assessment & Plan Assessment & Plan (1) Tendonitis of left rotator cuff: Code(s): M75.82 - Other shoulder lesions, left shoulder Category: Medical Plan We discussed options today, which include steroid injection. The patient did consent to move forward with the left shoulder injection, which was tolerated well. I recommended rest, ice, and elevation and OTC anti-inflammatories as needed for discomfort. If symptoms persist or worsens over the next 6-8 weeks, patient will contact the office, otherwise follow-up as needed. Patient Instructions: Scribed for Fawad Mccurdy PA-C, by Evert Sutton medical record retrieval specialist, on 08/07/2024 at 3:30 PM EST.? I, Fawad Mccurdy PA-C, have personally reviewed and agree with t he information entered by the scribe. Coding Level of Care Code Est Pt Level 3 (31742) Complex EM visit Add On G2211 Diagnoses Tendonitis of left rotator cuff M75.82 CPT Codes Coding - Joint 7: 38644 - Glenohumeral/Tronchanteric Bursa/Intraarticular ([id number])
== END 2024-08-07 15:48 | disposition home or self-care (01) ==
LOC: HO.HOS 15:24
PROVIDERS: PCP Internal Medicine Geriatric Medicine; Visit Provider Physician Assistant
DX: M75.82 Other shoulder lesions, left shoulder (principal)
CPT/HCPCS: 20610; 99213

== ENCOUNTER → 2024-08-07 15:23 | Outpatient (BNVA) | payer MEDICAID, SELFPAY | PROVIDERS: PCP Internal Medicine Geriatric Medicine; Visit Provider Physician Assistant | DX: M75.82 Other shoulder lesions, left shoulder (principal); M25.512 Pain in left shoulder | CPT/HCPCS: 20610; 99212; J1010; J2003 ==

== ENCOUNTER 2024-11-18 15:01 | Emergency (ER) | payer MEDICAID, SELFPAY ==
[2024-11-18 15:42] VITALS: BP 142/72; PULSE 71; RESP 19; TEMP 36.6; O2SAT 99; BMI 26.4
--- NOTE | 2024-11-18 15:43 | ED.ALLEREA ---
HPI - Allergic Reaction General Chief complaint: General Medical Stated complaint: Allergic Reaction to Hair Dye Source: patient and RN notes reviewed Mode of arrival: ambulatory Limitations: no limitations History of Present Illness ED Provider: eWndi Hand PA-C HPI narrative: This is a 59-year-old female who presents emergency department with complaints of itchy scalp. Patient states that she has had allergic reactions to hair dyes in the past, and states that several days ago she dyed her hair. She states that she has had increased swelling, and itchiness to her scalp since. Denies any difficulty breathing or swallowing. Denies taking any medications at home to treat her current symptoms. No other complaints or concerns at this time. MD complaint: allergic reaction and hives Onset (ago): day(s) Exposure: other (Hair dye) Known history of allergy to: Hair dye Symptoms: itching Severity: moderate Treatment prior to arrival: none Previous Allergic Reaction History: none Related Data Home Medications ?Medication ?Instructions ?Recorded ?Confirmed acetaminophen 500 mg tablet 1,000 mg PO Q8H PRN pain 02/17/23 08/08/24 albuterol sulfate 90 mcg/actuation 2 puff inhalation Q4-6H PRN 02/17/23 08/08/24 aerosol inhaler (Proventil HFA) amlodipine 5 mg tablet 5 mg PO DAILY 02/17/23 08/08/24 amoxicillin 500 mg capsule 500 mg PO Q8H 02/17/23 08/08/24 atorvastatin 20 mg tablet 20 mg PO DAILY 02/17/23 08/08/24 cetirizine 10 mg tablet 10 mg PO DAILY 02/17/23 08/08/24 cholecalciferol (vitamin D3) 50 50 mcg PO DAILY 02/17/23 08/08/24 mcg (2,000 unit) tablet fluticasone propionate 110 1 puff inhalation BID 02/17/23 08/08/24 mcg/actuation HFA aerosol inhaler (Flovent HFA) lorazepam 0.5 mg tablet 0.5 mg PO BID PRN anxiety 02/17/23 08/08/24 olopatadine 0.1 % eye drops 1 drp ophthalmic (eye) BID 02/17/23 08/08/24 pantoprazole 20 mg tablet,delayed 20 mg PO QAM 02/17/23 08/08/24 release trazodone 50 mg tablet 50 mg PO BEDTIME PRN insomnia 02/17/23 08/08/24 Previous Rx's ?Medication ?Instructions ?Recorded yrecjninly-qlxeqatkdkaat-kutzhtcd 1 tab PO Q6H PRN pain #20 tabs 11/20/20 50 mg-325 mg-40 mg tablet ondansetron 4 mg disintegrating 4 mg PO Q8H PRN nausea and 11/20/20 tablet vomiting #20 tabs albuterol sulfate 90 mcg/actuation 2 puff inhalation Q4-6H PRN 09/02/23 aerosol inhaler shortness of breath or wheezing #6.7 grams azithromycin 250 mg tablet See Rx Instructions PO .COMPLEX #6 09/02/23 tabs prednisone 20 mg tablet 20 mg PO DAILY #5 tabs 09/02/23 diphenhydramine HCl 25 mg tablet 25 - 50 mg (1 - 2 x 25 mg) PO TID 11/18/24 (Benadryl Allergy) PRN allergic reaction #20 tabs prednisone 20 mg tablet 40 mg (2 x 20 mg) PO DAILY 5 days 11/18/24 #10 tabs Allergies Allergy/AdvReac Type Severity Reaction Status Date / Time apple [APPLE] Allergy Severe ITCHING IN Verified 11/18/24 15:43 THROAT pollen extracts [POLLEN] Allergy Unknown NASAL Verified 11/18/24 15:43 SYMPTOMS HAIR DYE Allergy Unknown UNKNOWN Uncoded 11/18/24 15:43 Review of Systems Review of Systems: Yes all other systems are reviewed and are negative [facility] Past Medical History Medical History Vitamin D deficiency Depression Asthma Gastritis High cholesterol HTN (hypertension) Social History Social History Alcohol intake: former Patient Tobacco Use Status: Never used Tobacco Advance Directives: No Advance Directives Information Provided: No Do you have a plan to hurt others: No Plan Current occupational status: disabled Current occupation: right hand dominant Physical Exam ED Vital Signs: BMI result Body Mass Index 26.4 Const Other: General: Awake, alert, and oriented X3. No acute distress. HEENT: Normal inspection. Airway is widely patent. CVS: Normal heart rate and rhythm. Pulses normal. Respiratory: No respiratory distress lungs clear to auscultation bilaterally. Skin: Patient with edema, and erythema noted to the scalp, patient actively itching. Extremities: Normal to inspection Neuro: Oriented X 3. No motor deficit. No sensory deficit. Medical Decision Making Medical Decision Making MDM Narrative: This is a 59-year-old female who presents emergency department with complaints of itchy scalp after using hair dye. She has known allergies to hair dye and states that several days ago she dyed her hair. On arrival, vital signs within normal limits. Scalp is edematous, and erythematous. She has itching during examination, lungs are clear to auscultation bilaterally. No wheezing. She was speaking in full sentences under no acute distress. Airway is widely patent. Will treat with prednisone, and Benadryl. Given strict return precautions. Patient stable for discharge. Differential Diagnosis Differential Diagnoses: The differential diagnosis associated with the presentation includes Contact dermatitis, folliculitis, cellulitis, allergic reaction, anaphylaxis-unlikely Discharge Plan Discharge Clinical Impression: Allergic reaction Patient Disposition: Home, Self-Care Instructions: General Allergic Reaction (ED) Additional Instructions: You were seen in the emergency department due to an allergic reaction from hair dye. Stop using here today as you are allergic to it. Please take prescribed prednisone as directed. Take Benadryl as needed as well. If any new or worsening symptoms occur including but not limited to chest pain, shortness of breath, or difficulty swallowing, please seek emergent care. Prescriptions: New prednisone 20 mg tablet 40 mg PO DAILY 5 Days Qty: 10 0RF diphenhydramine HCl [Benadryl Allergy] 25 mg tablet 25 - 50 mg PO TID PRN (Reason: allergic reaction) Qty: 20 0RF No Action rfgkwcmcqe-kwvbqmrcwxhan-jgkx 50-325-40 mg tablet 1 tab PO Q6H PRN (Reason: pain) Qty: 20 0RF ondansetron 4 mg tablet,disintegrating 4 mg PO Q8H PRN (Reason: nausea and vomiting) Qty: 20 0RF prednisone 20 mg tablet 20 mg PO DAILY Qty: 5 0RF azithromycin 250 mg tablet See Rx Instructions .ROUTE .COMPLEX Qty: 6 0RF Rx Instructions: For 250 mg dose pack: take 500 mg today (day 1), then 250 mg for 4 days (days 2-5) albuterol sulfate 90 mcg/actuation HFA aerosol inhaler 2 puff inhalation Q4-6H PRN (Reason: shortness of breath or wheezing) Qty: 6.7 0RF amlodipine 5 mg tablet 5 mg PO DAILY cetirizine 10 mg tablet 10 mg PO DAILY atorvastatin 20 mg tablet 20 mg PO DAILY lorazepam 0.5 mg tablet 0.5 mg PO BID PRN (Reason: anxiety) trazodone 50 mg tablet 50 mg PO BEDTIME PRN (Reason: insomnia) acetaminophen 500 mg tablet 1,000 mg PO Q8H PRN (Reason: pain) pantoprazole 20 mg tablet,delayed release (DR/EC) 20 mg PO QAM amoxicillin 500 mg capsule 500 mg PO Q8H cholecalciferol (vitamin D3) 50 mcg (2,000 unit) tablet 50 mcg PO DAILY albuterol sulfate [Proventil HFA] 90 mcg/actuation HFA aerosol inhaler 2 puff inhalation Q4-6H PRN fluticasone propionate [Flovent HFA] 110 mcg/actuation HFA aerosol inhaler 1 puff inhalation BID olopatadine 0.1 % drops 1 drp ophthalmic (eye) BID Interventions: ED Discharge Assessment Last Done: 11/18/24 15:51 Discharge Date/Time: 11/18/24 15:52 Print Language: [place]
[2024-11-18 15:51] VITALS: BP 142/72; PULSE 71; RESP 19; TEMP 36.6; O2SAT 99
--- OUTSIDE RECORDS SUMMARY | 2024-11-18 15:52 | XMS_ITS | Clinical Summary ---
Author Organization [employer] Address [address] [place] [address] [address] [place] [address] Care Team Providers Care Library Services Coordinator Name Role Phone Name, Storm BECKWITH Primary Care Provider [phone] Allergies Active Allergy Reactions Criticality Noted Date Comments Apple Juice 08/09/2017 Lisinopril Rash Low 07/26/2018 Naproxen Rash Low 07/26/2018 Other reaction(s): Rash Other 11/26/2019 Surgical Lubricant 11/26/2019 Medications Acetaminophen Extra Strength 500 MG tabletIndicatio ns:Chronic pain syndrome TAKE 2 TABLETS BY MOUTH EVERY 8 HOURS NEEDED FOR RIGHT SHOULDER PAIN 60 tablet 1 3 Active estradiol (Estrace) 0.1 MG/GM vaginal creamIndication s:Atrophic vaginitis Insert 1 g into the vagina 2 (two) times a week. 42.5 g 2 3 Active citalopram (CeleXA) 40 MG tablet Take 40 mg by mouth in the morning. 3 Active LORazepam (Ativan) 0.5 MG tablet Take 0.5 mg by mouth if needed in the morning and at bedtime. 3 Active traZODone (Desyrel) 50 MG tablet Take 50 mg by mouth if needed at bedtime. 3 Active lactulose (Chronulac) 10 GM/15ML solution TAKE 15 ML BY MOUTH EVERY DAY 500 mL 3 3 Active diphenhydrAMINE (BENADryl) 25 MG capsule Take 2 capsules (50 mg) by mouth every 6 (six) hours if needed for itching. May take 1-2 capsules prn rash or itching 30 capsule 3 Active polyethylene glycol, PEG, 3350 (Glycolax) 17 GM/SCOOP powder TAKE 17 GM MIXED IN 8 OUNCES OF WATER ONCE DAILY NEEDED 510 g 4 3 Active hydrocortisone 2.5 % cream APPLY TOPICALLY TWICE DAILY 20 g 1 4 Active cholecalciferol (Vitamin D-3) 50 MCG (2000 UT) tabletIndicatio ns:Vitamin D deficiency TAKE 1 TABLET BY MOUTH EVERY DAY 90 tablet 3 4 Active fluticasone furoate (Arnuity Ellipta) 200 MCG/ACT inhaler Inhale 1 puff in the morning. Rinse mouth with water after use to reduce aftertaste and incidence of candidiasis. Do not swallow. 1 each 11 4 01/08/20 25 Active fluticasone (Flonase) 50 MCG/ACT nasal spray Administer 2 sprays into each nostril 2 times daily. 16 g 11 4 Active atorvastatin (Lipitor) 20 MG tablet TAKE 1 TABLET BY MOUTH EVERY DAY 90 tablet 3 4 Active amLODIPine (Norvasc) 5 MG tablet TAKE 1 TABLET BY MOUTH EVERY DAY 90 tablet 1 4 Active albuterol (Ventolin HFA) 108 (90 Base) MCG/ACT inhaler INHALE 2 PUFFS BY MOUTH EVERY 4 TO 6 HOURS NEEDED 18 g 1 4 Active Flowflex COVID-19 Ag Home Test kit USE DIRECTED 4 Active cetirizine (ZyrTEC) 10 MG tabletIndicatio ns:Seasonal allergic reaction TAKE 1 TABLET BY MOUTH EVERY DAY IN THE MORNING 90 tablet 1 4 Active pantoprazole (ProtoNix) 20 MG EC tabletIndicatio ns:Heartburn TAKE 1 TABLET BY MOUTH EVERY DAY IN THE MORNING. 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 23 Extrinsic asthma with acute exacerbation 018 Knee pain 07/26/2018 Rash 07/02/2018 Seasonal allergic reaction 05/23/2018 Depressive disorder 10/01/2013 Arthritis 10/01/2013 Hypertension 05/31/2012 Hypertriglyceridemia 05/31/2012 Osteoarthritis of knee 05/31/2012 Constipation 05/31/2012 Congenital stenosis of pulmonary valve 2 Gastroesophageal reflux disease 03/12/2012 Allergic rhinitis 03/12/2012 Resolved Problems Problem Noted Date Diagnosed Date Resolved Date Acute respiratory disease 11/25/2023 Assessment & Plan (11/25/2023 9:08 PM EST): Pt w respiratory symptoms likely viral with no concerning symptoms nor concerning findings on exam -here today COVID ,strep and flu neg -supportive tx advised -guaifenesin and albuterol refill -hydration -Warm compresses in back area -alarm signs and symptoms advised Asthma 03/12/2012 01/08/2024 Encounters Date Type Department Care Team Description 10/18/2024 Telephone [facility] [address] [place] [address] Virginia Pitt ID November Recall 10/04/2024 Refill [facility] [address] [place] [address] Name, MD Storm from Last 3 Months Immunizations Name Administration Dates Next Due Influenza injectable quadriv alent IIV4 with preservative 06/17/2019,07/26/2018,08/08/2017,2015,07/16/2015 Influenza injectable quadriv alent preservative free 09/11/2023,06/09/2022,06/21/2021,2019 Influenza, IIV3, injectable 07/15/2014, 1 Influenza, Split (incl. racheal fied surface antigen) 10/01/2013,06/07/2012 Influenza, seasonal, injecta ble, preservative free 08/06/2024 Pneumococcal Conjugate PCV 20 05/10/2024 TD (adult), 2 Lf tetanus tox oid, preservative free, adsorbed 04/23/2008 Tdap 05/23/2023,08/01/2012 Zoster, Recombinant 02/23/2023,12/16/2022 Social History Tobacco Use Types Packs/Day Years Used Date Smoking Tobacco: Never Passive Smoke Exposure: Never Smokeless Tobacco: Never Tobacco Cessation:Counseling Given: Not Answered Alcohol Use Standard Drinks/Week Comments Never 0 (1 standard drink = 0.6 oz pur e alcohol) Depression Answer Date Recorded Patient Health Questionnaire-9 Score 24 05/10/2024 Patient Health Questionnaire-9 Score 24 05/10/2024 Last PHQ-9: Questionnaire Data Not on file 0 05/10/2024 Housing Stability Answer Date Recorded What is your housing situation today? I have kyra dudley 07/22/[address] you li ve. Do you have problems with any of the following? None of the above 07/22/2023 Food Insecurity Answer Date Recorded Within the past 12 months, y ou worried that your food would run out before you got money to buy more: Often true 07/22/2023 Within the past 12 months,th e food you bought just didn't last and you didn't have enough money to get more: Often true Transportation Answer Date Recorded In the past 12 months, has l ack of transportation kept you from medical appts, meetings, work or from getting things needed for daily living? No 07/22/2023 Utilities Answer Date Recorded In the past 12 months, has t he electric, gas, oil or water company threatened to shut off services in your home? No 07/22/2023 Depression Answer Date Recorded Patient Health Questionnaire-2 Score 6 05/10/2024 Comments No Sex and Gender Information Value Date Recorded Sex Assigned at Female 08/01/2022 10:15 AM EDT Legal Sex Female 10:15 AM EDT Gender Identity Female 08/01/2022 10:15 AM EDT Sexual Orientation Straight 08/01/2022 10 :15 AM EDT Last Filed Vital Signs Vital Sign Reading Time Taken Comments Blood Pressure 131/83 08/06/2024 3:18 PM EST Pulse 71 08/06/2024 3:18 PM EST Temperature 37.1 ??C (98.8 ??F) 08/06/2024 3:18 PM ES T Respiratory Rate 16 08/06/2024 3:18 PM EST Oxygen Saturation 99% 01/08/2024 10:46 AM EDT Inhaled Oxygen Concentration - - Weight 59.7 kg (131 lb 9.6 oz) 08/06/2024 3:18 P M EST Height 154.9 cm (5' 1 ) 08/06/2024 3:18 PM EST Body Mass Index 24.87 08/06/2024 3:18 PM EST Plan of Treatment Upcoming Encounters Date Type Department Care Team (Late st Contact Info) Description 12/19/2024 2:00 PM EDT Office Visit [facility] [address] [place], [place] [phone] Millicent Brewer, CNM [address] [place], [place] [phone] 01/13/2025 3:30 PM EDT Office Visit [facility] [address] [place], [place] [phone] Name, MD Storm [address] [place], [place] [phone] Health Maintenance Due Date Last Done Comments CT Colonography 1964 FIT DNA/Cologuard 1964 FIT 1964 FOBT 1965 HIV Screening 1965 Sigmoidoscopy 1964 Alcohol/Substance Use Screening 1976 Hepatitis C Screening 1982 SDOH Screening 01/14/2024 01/13/2023 RSV Patients and Patients Aged 60 years or older (1 - Risk 60-74 years 1-dose series) 2024 COVID-19 Vaccine ( season) 2024 09/15/2021, 02/10/2021, 01/13/2021 Colonoscopy 10/21/2024 10/21/2014 Colorectal Cancer Screening 10/21/2024 Depression Monitoring (PHQ-9) 11/10/2024 05/10/2024, 05/10/2024 Depression Screening 05/10/2025 05/10/2024, 05/10/20 Tobacco Screening 08/06/2025 08/06/2024 Mammogram 01/15/2026 01/16/2024, 12/31, 01/05/2023, Additional history exists Cervical Cancer Screening 12/16/2027 HPV/Cotest 12/16/2027 12/15/2022, 11/13/2019 Pap Smear 12/16/2027 12/15/2022, 11/13/2019 Lipid Panel 01/11/2029 01/12/2024, 12/31, 01/07/2022, Additional history exists DTaP/Tdap/Td Vaccines (3 - Td or Tdap) 05/23/2033 05/23/2023, 08/01/2012, 04/23/2008 Zoster Vaccines Completed 02/23/2023, 12/16/2022 Pneumococcal Vaccine: 50+ Years Completed 05/10/2024 Influenza Vaccine Completed 08/06/2024, , 06/09/2022, Additional history exists HIB Vaccines Aged Out No longer eligi ble based on patient's age to complete this topic HPV Vaccines Aged Out No longer eligi ble based on patient's age to complete this topic Hepatitis A Vaccines Aged Out No long er eligible based on patient's age to complete this topic Hepatitis B Vaccines Aged Out No long er eligible based on patient's age to complete this topic IPV Vaccines Aged Out No longer eligi ble based on patient's age to complete this topic Meningococcal Vaccine Aged Out No domenic dirk eligible based on patient's age to complete this topic RSV under 20 months Aged Out No longe r eligible based on patient's age to complete this topic Rotavirus Vaccines Aged Out No longer eligible based on patient's age to complete this topic Procedures Procedure Name Priority Date/Time Associated Diagnosis Comments BI MAMMOGRAM SCREENING TOMOSYNTHESIS BILATERAL Routine 01/16/2024 12:00 PM EDT LIPID PANEL, STANDARD Routine 01/12/2024 9:25 AM EDT High cholesterol IMAGE-GUIDED PAP W/AGE BASED SCR PROTOCOLS Routine 12/15/2022 10:55 AM EDT Cervical cancer screening HM COLONOSCOPY Routine 10/21/2014 from Last 3 Months or Most Recently Relevant to Health Maintenance Results * BI Mammogram Screening Tomosynthesis Bilateral (01/16/2024 12:00 PM EDT) Anatomical Region Laterality Modality Breast Bilateral Mammography 01/16/2024 12:0 0 PM EDT Narrative 01/22/2024 8:57 PM EDT ? [facility] ? [address] ?[place], [place] [address] ? Mammography Report ? Signed ? Patient: Jason Singh,Merna L ?MR# ?? : [id number] ? : 1965 ?Acct:[id number] ? Age/Sex: 58 / F ?ADM Date: 01/16/24 ? Loc: HO.MAMMO ? Attending Dr: Storm Name MD ? Ordering Physician: Name,Storm MD ?Results: 2Benign Fi ?? ndings ? Date of Service: 01/16/24 ?Follow Up: 1 Year From Orig ?? inal Mammogram ? Procedure(s): MM tomosynthesis screening BI ?? Accession Number(s): [id number] ? cc: Name,Storm BECKWITH ? EXAMINATION: ?? MM SCREENING DIGITAL BREAST TOMOSYNTHESIS, BILATERAL ? CLINICAL INFORMATION: ? Screening. Asymptomatic. ? COMPARISON: ?? Mammography: This study is compared with prior exams dating back to ?? 2019. ? TECHNIQUE: ?? Digital breast tomosynthesis is performed in both the craniocaudal and ?? mediolateral oblique views along with computer-aided detection (CAD). ?? Synthesized 2D images are generated from the tomosynthesis. ? FINDINGS: ?? The breasts are heterogeneously dense, which may obscure small masses ?? (ACR BI-RADS breast composition Category c). ? There are no significant masses, abnormal calcifications, or other ?? abnormalities. ? There are tissue markers in each breast from prior benign percutaneous ?? biopsies. ? Few, bilateral benign calcifications are present. ? MM/MM tomosynthesis screening BI ?? IMPRESSION: ?? No mammographic evidence of malignancy. ? ASSESSMENT: ? BI-RADS BI-RADS 2 - Benign Findings ? RECOMMENDATION: ?? Routine annual mammography screening. ? 1 year F/U ? This examination should not preclude the clinical evaluation of a ?? suspicious palpable abnormality. ? This patient's information was entered into a reminder system with a ?? target due date for their next mammogram. ? Dictated By: ?Carmen Lisa MD ? Signed By: ?<Electronically signed by Carmen Lisa MD in OV> ? 01/22/242052 ? DD/ 1200 ? TD/TT: ? Sales Support Rep: ? Procedure Note Nadine Crawley - 01/22/2024 [place] [facility] [address] [place] [address] Mammography Report Signed Patient: Merna Goff LMR# : [id number] : 1965Acct:[id number] Age/Sex: 58 / FADM Date: 01/16/24 Loc: ANANYA.MAMMO Attending Dr: Storm Mayo MD Ordering Physician: Storm Mayo MDResults: 2Benign Fi ndings Date of Service: 01/16/24Follow Up: 1 Year From Orig inal Mammogram Procedure(s): MM tomosynthesis screening BI Accession Number(s): [id number] cc: Storm Mayo MD EXAMINATION: MM SCREENING DIGITAL BREAST TOMOSYNTHESIS, BILATERAL CLINICAL INFORMATION: Screening. Asymptomatic. COMPARISON: Mammography: This study is compared with prior exams dating back to 2019. TECHNIQUE: Digital breast tomosynthesis is performed in both the craniocaudal and mediolateral oblique views along with computer-aided detection (CAD). Synthesized 2D images are generated from the tomosynthesis. FINDINGS: The breasts are heterogeneously dense, which may obscure small masses (ACR BI-RADS breast composition Category c). There are no significant masses, abnormal calcifications, or other abnormalities. There are tissue markers in each breast from prior benign percutaneous biopsies. Few, bilateral benign calcifications are present. MM/MM tomosynthesis screening BI IMPRESSION: No mammographic evidence of malignancy. ASSESSMENT: BI-RADS BI-RADS 2 - Benign Findings RECOMMENDATION: Routine annual mammography screening. 1 year F/U This examination should not preclude the clinical evaluation of a suspicious palpable abnormality. This patient's information was entered into a reminder system with a target due date for their next mammogram. Dictated By: Carmen Lisa MD Signed By: <Electronically signed by Carmen Lisa MD in OV> 01/22/242052 DD/ 1200 TD/TT: Sales Support Rep: us Storm Name IM BI PROCEDURES Edited Result - Final * (ABNORMAL) Lipid Panel, Standard (01/12/2024 9:25 AM EDT) Triglycerides 160(H) <150 mg/dL [facility] Comment:Desirable Triglyceri de: less than 150 mg/dLBorderline High Triglyceride 150-199 mg/dLHigh Triglyceride: 200-499 mg/dLVery High Triglyceride: greater than or equal to 5OO mg/dL Cholesterol 123 <200 mg/dL [facility] Comment:Desirable Cholestero l: less than 200 mg/dLBorderline High Cholesterol: 200-239 mg/dLHigh Cholesterol: greater than 239 mg/dL LDL Cholesterol Calculated 48 <100 mg/dL [facility] Comment:Desirable LDL: less than 100 mg/dLNear Optimal/Above Optimal LDL: 110- 129 mg/dLBorderline High LDL: 130-159 mg/dLHigh LDL: 160-189 mg/dLVery High LDL: greater than or equal to 190 mg/dL HDL Cholesterol 43 >40 mg/dL [facility] Comment:Desirable HDL: great er than 40 mg/dL Note: This HDL assay may give artificially low results in patients with liver disease. Blood Venous blood specimen / Unknown 01/12/2024 9:25 AM EDT 01/12/2024 11:29 AM EDT us Storm Name MD LAB BLOOD ORDERABLES Final Resul t [facility] [address] [place] [phone] * Image-Guided Pap with Age-Based Screening Protocols (12/15/2022 10:55 AM EDT) Comment [employer] [place] [employer] Comment: This order for age-based cervical cancer and STI screening follows ACOG guidelines(PB 168, 140, JCP751). See individual assays for performing site location. Clinical Information: None given [employer] Diagnost LMP: NONE GIVEN [employer] Diagnost Prev. PAP: NONE GIVEN [employer]ost Prev. BX: NONE GIVEN [employer] Diagnost SOURCE: None given [employer] Statement Of Adequacy: [employer] Comment: Satisfactory for evaluation. Endocervical/transformation zone component absent. Interpretation/ Result: Negative for intraepithelial lesion or malignancy. [employer] COMMENT: This Pap test has been evaluated with computer assisted technology. [employer] [place] [employer] Cytotechnologis t: [employer] [place] [employer] Comment: DMM, CT(ASCP) CT screening location: [address] ??[address] (Always Message) [employer] Comment: EXPLANATORY NOTE: The Pap is a screening test for cervical cancer. It is not a diagnostic test and is subject to false negative and false positive results. It is most reliable when a satisfactory sample, regularly obtained, is submitted with relevant clinical findings and history, and when the Pap result is evaluated along with historic and current clinical information. HPV nRNA E6/E7 Not Detected Not Detected [employer] Comment: Methodology: Farrowing Manager-Mediated Amplification This assay detects E6/E7 viral messenger RNA (mRNA) from 14 high-risk HPV types (16,18,31,33,35,39,45,51,52,56,58,59,66,68). Cervical sources are required for HPV testing. If a vaginal source from a patient who has had a total hysterectomy with removal of cervix was submitted, please contact the testing laboratory for alternative testing options. For additional information, please refer to http://education.Gipis/faq/HIO139m4 (This link if provided for information/ educational purposes only.) Cytology specimen container (physical object) 12/15/2022 10:55 AM EDT 12/16/2022 7:33 AM EDT Millicent Brewer [facility] BLOOD ORDERABLES Aby farrar Result [facility] [address], [place] [address] [facility] [address] [place] [address] * Colonoscopy (10/21/2014) Colonoscopy Normal Normal [facility] External Provider HEALTH MAINTENANCE Final Result from Last 3 Months or Most Recently Relevant to Health Maintenance Insurance [address] [place] [phone] [facility] [address] [place] [address] [address] [place] [address] Care Teams Library Services Coordinator Relationship Specialty Start Date End Date Name, MD Storm [address] [place] [address] [place] [address] PCP - General Family Medicine 05/18/17
--- OUTSIDE RECORDS SUMMARY | 2024-11-18 15:52 | XMS_ITS | Encounter Summary ---
Author Organization [employer] Address [address] [facility] [address]t [place] [address] Care Team Providers Care Covered Button Maker Name Role Phone Name, Storm BECKWITH Primary Care Provider [phone] Encounter Details Date Type Department Care Team (Late st Contact Info) Description 2023 Abstract [facility]INE [address] [place] [phone] Name, MD Storm [address] [place], [place] [phone] Social History Tobacco Use Types Packs/Day Years Used Date Smoking Tobacco: Never Smokeless Tobacco: Never Depression Answer Date Recorded Patient Health Questionnaire-9 Score 4 01/13/2023 Depression Answer Date Recorded Patient Health Questionnaire-2 Score 2 01/13/2023 Comments No Sex and Gender Information Value Date Recorded Sex Assigned at Female 08/01/2022 10:15 AM EDT Legal Sex Female 10:15 AM EDT Gender Identity Female 08/01/2022 10:15 AM EDT Sexual Orientation Straight 08/01/2022 10 :15 AM EDT COVID-19 Exposure Response Date Recorded In the last 10 days, have yo u been in contact with someone who was confirmed or suspected to have Coronavirus/COVID-19? No / Unsure 03/02/2023 3:23 PM EDT documented as of this encounter Plan of Treatment Upcoming Encounters Date Type Department Care Team (Late st Contact Info) Description 12/19/2024 2:00 PM EDT Office Visit [facility] [address] [place], [place] [phone] Millicent Brewer CNM [address] [place] [address] 01/13/2025 3:30 PM EDT Office Visit [facility] [address] [facility] [place] [address] Name, MD Storm [address] [place] [address] documented as of this encounter Visit Diagnoses Not on filedocumented in this encounter Additional Health Concerns Assessment Noted Time PHQ-9 Depression Total Score: 4 01/14/20 23 10:14 AM EDT documented as of this encounter Care Teams Covered Button Maker Relationship Specialty Start Date End Date Name, MD Storm [facility] [place] [address] PCP - General Family Medicine 05/18/17 documented as of this encounter
--- OUTSIDE RECORDS SUMMARY | 2024-11-18 15:52 | XMS_ITS | Encounter Summary ---
Author Organization [employer] Address [address] [facility] [address]t [place] [address] Care Team Providers Care Lead Software Developer Name Role Phone Name, Storm BECKWITH Primary Care Provider [phone] Encounter Details Date Type Department Care Team (Latest Contact Info) Description 12/10/2019 Abstract [facility] CONVERSIONS Dental, Provider, DDS Social History Tobacco Use Types Packs/Day Years Used Date Smoking Tobacco: Never Assessed Comments Unknown Sex and Gender Information Value Date Recorded Sex Assigned at Female 08/01/2022 10:15 AM EDT Legal Sex Female 10:15 AM EDT Gender Identity Female 08/01/2022 10:15 AM EDT Sexual Orientation Straight 08/01/2022 10 :15 AM EDT documented as of this encounter Plan of Treatment Upcoming Encounters Date Type Department Care Team ( st Contact Info) Description 12/19/2024 2:00 PM EDT Office Visit [facility] MEDICINE [address] [place] [phone] Millicent Brewer CNM [address] [place] [address] 01/13/2025 3:30 PM EDT Office Visit [facility] MEDICINE [address] [place] [address] Storm Mayo MD [address] [place] [phone] documented as of this encounter Visit Diagnoses Not on filedocumented in this encounter Care Teams Lead Software Developer Relationship Specialty Start Date End Date Storm Mayo MD [address] [place] [address] [place] [address] PCP - General Family Medicine 05/18/17 documented as of this encounter
--- OUTSIDE RECORDS SUMMARY | 2024-11-18 15:52 | XMS_ITS | Encounter Summary ---
Author Organization [employer] Address [address] [facility] [address]t [place] [address] Care Team Providers Care Body Hanger Name Role Phone Name, Storm BECKWITH Primary Care Provider [phone] Encounter Details Date Type Department Care Team (Latest Contact Info) Description 02/24/[address] [facility] CONVERSIONS Dental, Provider, DDS Social [...] 2:00 PM EDT Office Visit [facility] MEDICINE [address] [place] [phone] Millicent Brewer CNM [address] [place] [address] 01/13/2025 3:30 PM EDT Office Visit [facility] MEDICINE [address] [place] [phone] Storm Mayo MD [address] [place] [phone] documented as of this encounter Visit Diagnoses Not on filedocumented in this encounter Care Teams Body Hanger Relationship Specialty Start Date End Date Storm Mayo MD [address] [place] [address], [place] [address] PCP - General Family Medicine 05/18/17 documented as of this encounter
--- OUTSIDE RECORDS SUMMARY | 2024-11-18 15:52 | XMS_ITS | Encounter Summary ---
Author Organization [employer] Address [address] [facility] 7t [place] [address] Care Team Providers Care Personal Development Educator Name Role Phone Name, Storm BECKWITH Primary Care Provider [phone] Encounter Details Date Type Department Care Team (Late st Contact Info) Description 03/14/2023 Abstract [facility] MEDICINE [address] [place] [address] [phone] Name, MD Storm [address] [place], [place] [phone] Social History Tobacco Use Types Packs/Day Years [...] Description 12/19/2024 2:00 PM EDT Office Visit [facility] MEDICINE [address] [place], [place] [phone] Millicent Brewer CNM 230 [place] [address] 01/13/2025 3:30 PM EDT Office Visit [facility] MEDICINE [address] [facility] [place] [address] Name, MD Storm [address] [place] [address] documented as of this encounter Visit Diagnoses Not on filedocumented in this encounter Additional Health Concerns Assessment Noted Time PHQ-9 Depression Total Score: 4 01/14/20 23 10:14 AM EDT documented as of this encounter Care Teams Personal Development Educator Relationship Specialty Start Date End Date Name, MD Storm [facility] [place] [address] PCP - General Family Medicine 05/18/17 documented as of this encounter
--- OUTSIDE RECORDS SUMMARY | 2024-11-18 15:52 | XMS_ITS | Encounter Summary ---
Author Organization [employer] Address [address] [facility] 7t [place] [address] Care Team Providers Care Mobile Security Specialist Name Role Phone Name, Storm BECKWITH Primary Care Provider Encounter Details Date Type Department Care Team (Latest Contact Info) Description 05/07/2019 Abstract [facility] CONVERSIONS Dental, Provider, DDS Social [...] Description 12/19/2024 2:00 PM EDT Office Visit [facility] MEDICINE [address] [place] [phone] Millicent Brewer CNM [address] [place] [address] 01/13/2025 3:30 PM EDT Office Visit [facility] MEDICINE [address] [place] [phone] Storm Mayo MD [address] [place] [phone] documented as of this encounter Visit Diagnoses Not on filedocumented in this encounter Care Teams Mobile Security Specialist Relationship Specialty Start Date End Date Storm Mayo MD [address] [place] [address] [place] [address] PCP - General Family Medicine 05/18/17 documented as of this encounter
--- OUTSIDE RECORDS SUMMARY | 2024-11-18 15:52 | XMS_ITS | Encounter Summary ---
Author Organization [employer] Address [address] [facility] 7t [place] [address] Care Team Providers Care Administrative And Program Specialist Name Role Phone Name, Storm BECKWITH Primary Care Provider [phone] Encounter Details Date Type Department Care Team (Late st Contact Info) Description 10/21/2022 Orders Only [facility] MED & PEDS [address] [place], [place] [phone] Tarsha Fraire LPN Social History Tobacco Use Types Packs/Day Years [...] Description 12/19/2024 2:00 PM EDT Office Visit [facility] MEDICINE [address] [place] [phone] Millicent Brewer CNM [address] [place] [address] 01/13/2025 3:30 PM EDT Office Visit [facility] MEDICINE [address] [place] [address] [phone] Name, MD Storm [address] [place], [place] [phone] documented as of this encounter Visit Diagnoses Not on filedocumented in this encounter Care Teams Administrative And Program Specialist Relationship Specialty Start Date End Date Name, MD Storm [address] [place] [address] PCP - General Family Medicine 05/18/17 documented as of this encounter
== END 2024-11-18 15:52 | disposition home or self-care (01) ==
PROVIDERS: Emergency Provider Emergency Medicine; PCP Internal Medicine Geriatric Medicine
DX: L50.0 Allergic urticaria (principal); Z79.899 Other long term (current) drug therapy
CPT/HCPCS: 99282; 99283

== ENCOUNTER 2025-01-27 15:24 | Outpatient (REF) | payer MEDICAID, SELFPAY ==
[2025-01-27 16:34] LABS: Anion Gap 14 (12-20); Blood Urea Nitrogen 20 mg/dL (9-16); Calcium 9.5 mg/dL (8.4-10.2); Carbon Dioxide 25 mmol/L (22-29); Chloride 104 mmol/L (96-108); Estimated Glomerular Filt Rate > 60; Glucose Random 85 mg/dL (60-115); Potassium 3.7 mmol/L (3.3-5.1); Sodium 139 mmol/L (135-145)
--- OUTSIDE RECORDS SUMMARY | 2025-01-27 18:11 | XMS_ITS | Encounter Summary ---
Author Organization [employer] Address [address] [facility] 7t [place] [address] Care Team Providers Care Geospatial Technologist Name Role Phone Name, Storm BECKWITH Primary Care Provider [phone] Encounter Details Date Type Department Care Team (Latest Contact Info) Description 01/22/2025 Travel Social History Tobacco Use Types Packs/Day Years Used Date Smoking Tobacco: Never Passive Smoke Exposure: Never Smokeless Tobacco: Never Alcohol Use Standard Drinks/Week Comments Never 0 [...] as of this encounter Plan of Treatment Not on file documented as of this encounter Visit Diagnoses Not on filedocumented in this encounter Additional Health Concerns Assessment Noted Time PHQ-9 Depression Total Score: 24 024 11:10 AM EDT documented as of this encounter Care Teams Geospatial Technologist Relationship Specialty Start Date End Date Name, MD Storm [address] [place] [address] PCP - General Family Medicine 05/18/17 documented as of this encounter
--- OUTSIDE RECORDS SUMMARY | 2025-01-27 18:11 | XMS_ITS | Encounter Summary ---
Author Organization [email or web address] Address [address] [facility] 7t [place] [address] Care Team Providers Care Advertising Account Executive Name Role Phone Name, Storm BECKWITH Primary Care Provider [phone] Reason for Visit * Reason Comments Blood Pressure Check Encounter Details Date Type Department Care Team ([facility] Contact Info) Description 01/22/2025 10:30 AM EDT Telemedicine [facility] MEDICINE 230 [place], [place] [phone] Anu Cooper RN Hypertension, unspecified type Social History Tobacco Use Types Packs/Day Years [...] AM EDT documented as of this encounter Progress Notes * Anu Cooper RN - 01/22/2025 10:30 AM EDT S: tc to pt via S id: [id number]. [place] [id number] and recommendations made on thatday per PCP Discontinue amlodipine since I suspect is contributing to her constipation. Start HCTZ. Recheck BMP next week. Follow- up televisit with team nurse in a week. . Pt denies cp, sob, headaches, lightheadedness, blurry vision, smoking and drinking alcohol. Pt reports they exercise all the times, diet consists of salads, chicken breast , rice, beans, fruits and vegetables. Pt reports theywent on vacation form 01/17-01/20 so they were not able to check their BP on those days. Pt reports they have been taking their medications as rx and checking their BP daily. O: Pt rx hydrochlorothiazide 12.5 MG tablet (Take 1 tablet (12.5 mg) by mouth Once per day.) A: Pt reports compliance to current BP regimen. Lifestyle modifications implemented during visit. BP: 119/82 HR: 69, BP: 125/83 HR: 68, BP: 126/83 HR: 62, BP: 128/79 HR: 55 P: Pt is advised to continue taking their medications as prescribed and check their BP daily. Pt advised to exercise at least 3-5 a week for 30 minutes, follow a low sodium diet and attend their scheduled appts. Message forwarded to PCP for review. documented in this encounter Plan of Treatment Not on file documented as of this encounter Visit Diagnoses Diagnosis Hypertension, unspecified type documented in this encounter Additional Health Concerns Assessment Noted Time PHQ-9 Depression Total Score: 24 024 11:10 AM EDT documented as of this encounter Care Teams Advertising Account Executive Relationship Specialty Start Date End Date Name, MD Storm [address] [place] [address] PCP - General Family Medicine 05/18/17 documented as of this encounter
--- OUTSIDE RECORDS SUMMARY | 2025-01-27 18:11 | XMS_ITS | Encounter Summary ---
Author Organization [employer] Address [address] [facility] 7t [place] [address] Care Team Providers Care Ice Guard Inspector Name Role Phone Name, Storm BECKWITH Primary Care Provider [phone] Encounter Details Date Type Department Care Team ([facility] st Contact Info) Description 01/23/2025 Telephone [facility] MEDICINE 230 [place], [place] [phone] Anu Cooper, RN Social History Tobacco Use Types Packs/Day Years [...] AM EDT documented as of this encounter Miscellaneous Notes * Telephone Encounter - Anu Cooper RN - 01/23/2025 3:28 PM EDT Tc to pt via BLS id: [id number] to let them know per PCP I do not recommend any med changes. . Pt advised to continue taking their medication as prescribed and checking their BP daily. Pt verbalized understanding and no further questions or concerns at this time. * Telephone Encounter - Manoj Mohr - 01/23/2025 2:31 PM EDT Tc from pt returning call regarding prior message. Contact pt at [phone] * Telephone Encounter - Anu Cooper RN - 01/23/2025 1:15 PM EDT Tc to pt via BLS id: [id number] to let them know per PCP I do not recommend any med changes. gabe De La Fuente to return call and ask to speak to blue team nurses. * Telephone Encounter - Anu Cooper RN - 01/23/2025 1:15 PM EDT ----- Message from Storm Mayo MD sent at 01/23/2025 6:46 AM EDT ----- I do not recommend any med changes ----- Message ----- From: Anu Cooper RN Sent: 01/22/2025 3:25 PM EDT To: Storm Mayo MD Please review and advise on BP check visit from today. Thank you! documented in this encounter Plan of Treatment Not on file documented as of this encounter Visit Diagnoses Not on filedocumented in this encounter Additional Health Concerns Assessment Noted Time PHQ-9 Depression Total Score: 24 024 11:10 AM EDT documented as of this encounter Care Teams Ice Guard Inspector Relationship Specialty Start Date End Date Name, MD Storm [address] [place] [address] PCP - General Family Medicine 05/18/17 documented as of this encounter
--- OUTSIDE RECORDS SUMMARY | 2025-01-27 18:11 | XMS_ITS | Encounter Summary ---
Author Organization [employer] Address [address] [place] [address] 7t [place] [address] Care Team Providers Care Milk Route Supervisor Name Role Phone Name, Storm BECKWITH Primary Care Provider [phone] Encounter Details Date Type Department Care Team (Latest Contact Info) Description 02/24/2021 Abstract [facility] CONVERSIONS Dental, Provider, DDS Social [...] on filedocumented in this encounter Care Teams Milk Route Supervisor Relationship Specialty Start Date End Date Name, MD Storm [address] [place] [address] PCP - General Family Medicine 05/18/17 documented as of this encounter
--- OUTSIDE RECORDS SUMMARY | 2025-01-27 18:11 | XMS_ITS | Encounter Summary ---
Author Organization [email or web address] Address [address] [facility] 7t [place] [address] Care Team Providers Care Adobe Block Maker Name Role Phone Name, Storm BECKWITH Primary Care Provider [phone] Encounter Details Date Type Department Care Team ([facility] st Contact Info) Description 03/14/2023 Abstract [facility] [address] [place], [place] [phone] Name, MD Storm [address] [place] [address] Social History Tobacco Use Types Packs/Day Years [...] documented as of this encounter Care Teams Adobe Block Maker Relationship Specialty Start Date End Date Name, MD Storm [address] [place] [address] PCP - General Family Medicine 05/18/17 documented as of this encounter
--- OUTSIDE RECORDS SUMMARY | 2025-01-27 18:11 | XMS_ITS | Encounter Summary ---
Author Organization [employer] Address [address] [facility] 7t [place] [address] Care Team Providers Care Utility Aide Name Role Phone Name, Storm BECKWITH Primary Care Provider [phone] Encounter Details Date Type Department Care Team ([facility] st Contact Info) Description 10/21/2022 Orders Only [facility] MED & PEDS [address] [place] [address] Tarsha Fraire LPN Social History Tobacco Use [...] on filedocumented in this encounter Care Teams Utility Aide Relationship Specialty Start Date End Date Name, MD Storm [address] [place] [address] PCP - General Family Medicine 05/18/17 documented as of this encounter
--- OUTSIDE RECORDS SUMMARY | 2025-01-27 18:11 | XMS_ITS | Encounter Summary ---
Author Organization [employer] Address [address] [place] [address] 7t [place] [address] Care Team Providers Care Sample Grinder Name Role Phone Name, Storm BECKWITH Primary Care Provider [phone] Encounter Details Date Type Department Care Team (Latest Contact Info) Description 05/07/2019 Abstract [facility] CONVERSIONS Dental, Provider, DDS Social History Tobacco [...] on filedocumented in this encounter Care Teams Sample Grinder Relationship Specialty Start Date End Date Name, MD Storm [address] [place] [address] PCP - General Family Medicine 05/18/17 documented as of this encounter
--- OUTSIDE RECORDS SUMMARY | 2025-01-27 18:11 | XMS_ITS | Encounter Summary ---
Author Organization [employer] Address [address] [place] [address] 7t [place] [address] Care Team Providers Care Production Artist Name Role Phone Name, Storm BECKWITH Primary Care Provider [phone] Encounter Details Date Type Department Care Team (Latest Contact Info) Description 12/10/2019 Abstract [facility] CONVERSIONS Dental, Provider, DDS Social History Tobacco [...] on filedocumented in this encounter Care Teams Production Artist Relationship Specialty Start Date End Date Name, MD Storm [address] [place] [address] PCP - General Family Medicine 05/18/17 documented as of this encounter
--- OUTSIDE RECORDS SUMMARY | 2025-01-27 18:11 | XMS_ITS | Clinical Summary ---
Author Organization [employer] Address [address] [facility] 7t [place] [address] Care Team Providers Care Break Out Worker Name Role Phone Name, Storm BECKWITH Primary Care Provider [phone] Allergies Active Allergy Reactions Criticality Noted Date Comments Apple Juice 08/09/2017 Lisinopril Rash Low 07/26/2018 Naproxen Rash Low 07/26/2018 Other reaction(s): Rash Other 11/26/2019 Surgical Lubricant 11/26/2019 Medications estradiol (Estrace) 0.1 MG/GM vaginal creamIndication s:Atrophic vaginitis Insert 1 g into the vagina 2 (two) times a week. 42.5 g 2 023 Active citalopram (CeleXA) 40 MG tablet Take 40 mg by mouth in the morning. 023 Active LORazepam (Ativan) 0.5 MG tablet Take 0.5 mg by mouth if needed in the morning and at bedtime. 023 Active traZODone (Desyrel) 50 MG tablet Take 50 mg by mouth if needed at bedtime. 023 Active lactulose (Chronulac) 10 GM/15ML solution TAKE 15 ML BY MOUTH EVERY DAY 500 mL 3 023 Active diphenhydrAMINE (BENADryl) 25 MG capsule Take 2 capsules (50 mg) by mouth every 6 (six) hours if needed for itching. May take 1-2 capsules prn rash or itching 30 capsule 023 Active hydrocortisone 2.5 % cream APPLY TOPICALLY TWICE DAILY 20 g 1 024 Active cholecalciferol (Vitamin D-3) 50 MCG (2000 UT) tabletIndicatio ns:Vitamin D deficiency TAKE 1 TABLET BY MOUTH EVERY DAY 90 tablet 3 Active fluticasone furoate (Arnuity Ellipta) 200 MCG/ACT inhaler Inhale 1 puff in the morning. Rinse mouth with water after use to reduce aftertaste and incidence of candidiasis. Do not swallow. 1 each 11 Active fluticasone (Flonase) 50 MCG/ACT nasal spray Administer 2 sprays into each nostril 2 times daily. 16 g 11 Active atorvastatin (Lipitor) 20 MG tablet TAKE 1 TABLET BY MOUTH EVERY DAY 90 tablet 3 Active albuterol (Ventolin HFA) 108 (90 Base) MCG/ACT inhaler INHALE 2 PUFFS BY MOUTH EVERY 4 TO 6 HOURS NEEDED 18 g 1 Active Flowflex COVID-19 Ag Home Test kit USE DIRECTED Active cetirizine (ZyrTEC) 10 MG tabletIndicatio ns:Seasonal allergic reaction TAKE 1 TABLET BY MOUTH EVERY DAY IN THE MORNING 90 tablet 1 024 Active pantoprazole (ProtoNix) 20 MG EC tabletIndicatio ns:Heartburn TAKE 1 TABLET BY MOUTH EVERY DAY IN THE MORNING. DO NOT BREAK, CRUSH, DISSOLVE OR CHEW 90 tablet 1 024 Active Eye Itch Relief 0.035 % solution PLACE 1 DROP INTO THE AFFECTED EYE(S) TWICE DAILY IN THE MORNING AND AT BEDTIME NEEDED FOR ITCHING 10 mL 2 025 Active polyethylene glycol, PEG, 3350 (Glycolax) 17 GM/SCOOP powderIndicatio ns:Chronic constipation TAKE 17 GM MIXED IN 8 OUNCES OF WATER ONCE DAILY NEEDED 510 g 4 Active docusate sodium (Colace) 100 MG capsuleIndicati ons:Chronic constipation Take 1 tab po bid prn constipation 60 capsule 3 Active hydroCHLOROthia zide 12.5 MG tablet Take 1 tablet (12.5 mg) by mouth Once per day. 30 tablet 11 2025 Active Acetaminophen Extra Strength 500 MG tabletIndicatio ns:Acute midline low back pain without sciatica TAKE 2 TABLETS BY MOUTH EVERY 8 HOURS NEEDED FOR RIGHT SHOULDER PAIN 60 tablet 1 025 Active Blood Pressure kitIndications: Hypertension, unspecified type For home use once a day 1 kit 025 Active Acetaminophen Extra Strength 500 MG tabletIndicatio ns:Chronic pain syndrome TAKE 2 TABLETS BY MOUTH EVERY 8 HOURS NEEDED FOR RIGHT SHOULDER PAIN 60 tablet 1 023 2024 Discontinued(R eorder (will not trigger notification to Pharmacy)) polyethylene glycol, PEG, 3350 (Glycolax) 17 GM/SCOOP powder TAKE 17 GM MIXED IN 8 OUNCES OF WATER ONCE DAILY NEEDED 510 g 4 023 2024 Discontinued(R eorder (will not trigger notification to Pharmacy)) amLODIPine (Norvasc) 5 MG tablet TAKE 1 TABLET BY MOUTH EVERY DAY 90 tablet 1 024 2024 Discontinued(S darleen effects) Active Problems Problem Noted Date Diagnosed Date [...] Encounters Date Type Department Care Team Description 01/23/[address] [facility] [address] [place] [phone] Anu Cooper RN 01/22/2025 10:30 AM EDT Telemedicine [facility] [address] [place] [address] Anu Cooper, RN Hypertension, unspecified type 01/22/2025 Travel 01/13/2025 3:30 PM EDT Office Visit [address] [address] Storm Mayo MD Chronic constipation (Primary Dx); Encounter for screening for malignant neoplasm of colon; Acute midline low back pain without sciatica; Hypertension, unspecified type 01/13/2025 Travel 01/09/[address] [facility] [address] [place] [phone] Neal Krishnamurthy MA chartprep 12/19/2024 2:00 PM EDT Office Visit [address] [address] Millicent Brewer CNM Visit for pelvic exam (Primary Dx); Menopausal and postmenopausal disorder 12/19/2024 Travel 12/13/2024 Population Health Risk Score [facility] () Department [address] [place] [phone] Provider, Population Health Generic from Last 3 Months Immunizations Name Administration [...] adsorbed 04/23/2008 Tdap 05/23/2023,08/01/2012 Zoster, Recombinant 02/23/2023,12/16/2022 Family History Medical History Relation Name Comments Dementia Father Dementia Mother Breast cancer Neg Hx Colon cancer Neg Hx Ovarian cancer Neg Hx Uterine cancer Neg Hx Relation Name Status Comments Father Mother Social History Tobacco Use Types Packs/Day Years [...] your housing situation today? I have kyra luis enrique 07/22/[address] you li [...] Sign Reading Time Taken Comments Blood Pressure 127/76 01/13/2025 3:26 PM EDT Pulse 65 01/13/2025 3:26 PM EDT Temperature 36.9 ??C (98.5 ??F) 01/13/2025 3:26 PM ED T Respiratory Rate 18 01/13/2025 3:26 PM EDT Oxygen Saturation 97% 01/13/2025 3:26 PM EDT Inhaled Oxygen Concentration - - Weight 60 kg (132 lb 3.2 oz) 01/13/2025 3:26 PM EDT Height 154.9 cm (5' 1 ) 01/13/2025 3:26 PM EDT Body Mass Index 24.98 01/13/2025 3:26 PM EDT Plan of Treatment Health Maintenance Due Date Last Done Comments [...] 10/21/2024 10/21/2014 Colorectal Cancer Screening 10/21/2024 Depression Screening 05/10/2025 05/10/2024, 05/10/20 24 Tobacco Screening 01/13/2026 01/13/2025 Mammogram 01/15/2026 01/16/2024, 12/31, 01/05/2023, Additional history [...] Procedure Name Priority Date/Time Associated Diagnosis Comments BASIC METABOLIC PANEL Routine 01/27/2025 3:26 PM EDT Hypertension, unspecified type BI MAMMOGRAM SCREENING TOMOSYNTHESIS BILATERAL Routine 01/16/2024 12:00 PM EDT LIPID PANEL, STANDARD Routine 01/12/2024 9:25 AM EDT High cholesterol IMAGE-GUIDED PAP W/AGE BASED SCR PROTOCOLS Routine 12/15/2022 10:55 AM EDT Cervical cancer screening HM COLONOSCOPY Routine 10/21/2014 from Last 3 Months or Most Recently Relevant to Health Maintenance Results * (ABNORMAL) Basic Metabolic Panel (01/27/2025 3:26 PM EDT) Sodium 139 135 - 145 mmol/L [facility] Potassium 3.7 3.3 - 5.1 mmol/L [facility] Chloride 104 96 - 108 mmol/L [facility] Carbon Dioxide 25 22 - 29 mmol/L [facility] Anion Gap 14 12 - 20 [facility] Urea Nitrogen (BUN) 20(H) 9 - 16 mg/dL [facility] Creatinine, Serum 0.78 0.5 - 1.4 mg/dL [facility] Estimated Glomerular Filt Rate >60 [facility] Comment:Chronic Kidney Disea se: Estimated GFR < 60 mL/min/1.04z5Xtxody Kidney Disease: Estimated GFR < 15 mL/min/1.73m2 Glucose 85 60 - 115 mg/dL [facility] Calcium 9.5 8.4 - 10.2 mg/dL [facility] Blood Venous blood specimen / Unknown 01/27/2025 3:26 PM EDT 01/27/2025 4:02 PM EDT us Storm Name MD LAB BLOOD ORDERABLES Final Resul t [facility] [address] [place] [address] [phone] * BI Mammogram Screening Tomosynthesis Bilateral (01/16/2024 12:00 PM EDT) Anatomical Region Laterality Modality Breast Bilateral Mammography 01/16/2024 12:0 0 PM EDT Narrative 01/22/2024 8:57 PM EDT ? [facility] [place] ? [address] ?[place] [address] ? Mammography Report ? Signed ? Patient: Jason Singh,Merna L ?MR# ?? : [id number] ? : 1965 ?Acct:[id number] ? Age/Sex: 58 / F ?ADM Date: 04/16/24 ? Loc: HO.MAMMO ? Attending : Storm Name MD ? Ordering Physician: Name,Storm MD ?Results: 2Benign Fi ?? ndings ? Date of Service: 01/16/24 ?Follow Up: 1 Year From Orig ?? inal Mammogram ? Procedure(s): MM tomosynthesis screening BI ?? Accession Number(s): [id number] ? cc: Name,Storm BECKWITH ? EXAMINATION: ?? [...] Lisa MD in OV> ? 01/22/242052 ? DD/DT: // 1200 ? TD/TT: ? Movie Editor: ? Procedure Note Donotuseinterpreter, Image - [facility]/22/[facility] [address] [place], [place] [address] Mammography Report Signed Patient: Merna Goff LMR# : [id number] : 1965Acct:[id number] Age/Sex: 58 / FADM Date: 01/16/24 Loc: HO.MAMMO Attending Dr: Storm Mayo MD Ordering Physician: Storm Mayo MDResults: 2Benign Fi ndings Date of Service: 01/16/24Follow Up: 1 Year From Orig inal Mammogram Procedure(s): MM tomosynthesis screening BI Accession Number(s): [id number] cc: Storm Mayo MD EXAMINATION: MM SCREENING [...] MD in OV> 01/22/242052 DD/ 1200 TD/TT: Movie Editor: Storm Mayo MD IM BI PROCEDURES Edited Result - Final * (ABNORMAL) Lipid Panel, Standard (01/12/2024 9:25 AM EDT) Triglycerides 160(H) <150 mg/dL [facility] Comment:Desirable Triglyceri de: less than 150 mg/dLBorderline High Triglyceride 150-199 mg/dLHigh Triglyceride: 200-499 mg/dLVery High Triglyceride: greater than or equal to 5OO mg/dL Cholesterol 123 <200 mg/dL [facility] Comment:Desirable Cholestero l: less than 200 mg/dLBorderline High Cholesterol: 200-239 mg/dLHigh Cholesterol: greater than 239 mg/dL LDL Cholesterol Calculated 48 <100 mg/dL [facility] Comment:Desirable LDL: less than 100 mg/dLNear Optimal/Above Optimal LDL: 110- 129 mg/dLBorderline High LDL: 130-159 mg/dLHigh LDL: 160-189 mg/dLVery High LDL: greater than or equal to 190 mg/dL HDL Cholesterol 43 >40 mg/dL [facility] Comment:Desirable HDL: great er than 40 mg/dL Note: This HDL assay may give artificially low results in patients with liver disease. Blood Venous blood specimen / Unknown 01/12/2024 9:25 AM EDT 01/12/2024 11:29 AM EDT us Storm Mayo MD LAB BLOOD ORDERABLES Final Resul t [facility] [address] [place] [phone] * Image-Guided Pap with Age-Based Screening Protocols (12/15/2022 10:55 AM EDT) Comment [employer] Comment: This order for age-based cervical cancer and STI screening follows ACOG guidelines(PB 168, 140, IHU934). See individual assays for performing site location. Clinical Information: None given [facility] LMP: NONE GIVEN [facility] Prev. PAP: NONE GIVEN [facility] Prev. BX: NONE GIVEN [facility] SOURCE: None given [facility] Statement Of Adequacy: [facility] Comment: Satisfactory for evaluation. Endocervical/transformation zone component absent. Interpretation/ Result: Negative for intraepithelial lesion or malignancy. [facility] [employer] COMMENT: This Pap test has been evaluated with computer assisted technology. [facility] Cytotechnologis t: [facility] Comment: DMM, CT(ASCP) CT screening location: [address] ??[phone] (Always Message) [facility] Comment: EXPLANATORY NOTE: The Pap is a [...] HPV nRNA E6/E7 Not Detected Not Detected [facility] Comment: Methodology: Linen Room Custodian-Mediated Amplification This assay detects E6/E7 viral messenger RNA (mRNA) from 14 high-risk HPV types (16,18,31,33,35,39,45,51,52,56,58,59,66,68). Cervical sources are required for HPV testing. If a vaginal source from a patient who has had a total hysterectomy with removal of cervix was submitted, please contact the testing laboratory for alternative testing options. For additional information, please refer to http://education.[employer]/faq/OKJ955x3 (This link if provided for information/ educational purposes only.) Cytology specimen container (physical object) 12/15/2022 10:55 AM EDT 12/16/2022 7:33 AM EDT Millicent GROVER LAB BLOOD ORDERABLES Aby l Result [address], [place] [address] [facility] [address] [place] [phone] * Hm Colonoscopy (10/21/2014) Colonoscopy Normal Normal [facility] External Provider HEALTH MAINTENANCE Final Result from Last 3 Months or Most Recently Relevant to Health Maintenance Insurance [facility] C3 Care Teams Break Out Worker Relationship Specialty Start Date End Date Name, MD Storm [address] [place] [phone] PCP - General Family Medicine 05/18/17
--- OUTSIDE RECORDS SUMMARY | 2025-01-27 18:11 | XMS_ITS | Encounter Summary ---
Author Organization [employer] Address [address] [facility] 7t [place] [address] Care Team Providers Care Cashier Wrapper Name Role Phone Name, Storm BECKWITH Primary Care Provider [phone] Encounter Details Date Type Department Care Team ([facility] st Contact Info) Description 2023 Abstract [facility] [address] [place], [place] [phone] Name, MD Storm [address] [place] [address] Social History Tobacco Use Types Packs/Day Years [...] documented as of this encounter Care Teams Cashier Wrapper Relationship Specialty Start Date End Date Name, MD Storm [address] [place] [address] PCP - General Family Medicine 05/18/17 documented as of this encounter
== END 2025-01-27 15:25 | disposition home or self-care (01) ==
LOC: HO.HHCL 15:24
PROVIDERS: Visit Provider Internal Medicine Geriatric Medicine
DX: I10 Essential (primary) hypertension (principal)
CPT/HCPCS: 36415; 80048

== ENCOUNTER 2025-01-28 11:19 | Outpatient (REF) | payer MEDICAID, SELFPAY ==
--- OUTSIDE RECORDS SUMMARY | 2025-01-28 13:21 | XMS_ITS | Encounter Summary ---
Author Organization [employer] Address [address] [place] [address] 7t [place] [address] Care Team Providers Care Instrumental Music Teacher Name Role Phone Name, Storm BECKWITH Primary Care Provider [phone] Encounter Details Date Type Department Care Team (Latest Contact Info) Description 02/24/2021 Abstract [facility] CONVERSIONS Dental, Provider, DDS Social History Tobacco [...] on filedocumented in this encounter Care Teams Instrumental Music Teacher Relationship Specialty Start Date End Date Name, MD Storm [address] [place] [address] PCP - General Family Medicine 05/18/17 documented as of this encounter
--- OUTSIDE RECORDS SUMMARY | 2025-01-28 13:21 | XMS_ITS | Clinical Summary ---
Author Organization [employer] Address [address] [facility] 7t [place] [address] Care Team Providers Care Ship'S Master Name Role Phone Name, Storm BECKWITH Primary Care Provider [phone] Allergies Active Allergy Reactions Criticality Noted Date [...] Type Department Care Team Description 01/23/2025 Telephone [facility] [address] [place] [address] Anu Cooper RN 01/22/2025 10:30 AM EDT Telemedicine [facility] [address] [place] [address] Anu Cooper, RN Hypertension, unspecified type 01/22/2025 Travel 01/13/2025 3:30 PM EDT Office Visit [address] [address] Storm Mayo MD Chronic constipation (Primary Dx); Encounter for screening for malignant neoplasm of colon; Acute midline low back pain without sciatica; Hypertension, unspecified type 01/13/2025 Travel 01/09/2025 Telephone [facility] [address] [place] [phone] Neal Krishnamurthy MA chartprep 12/19/2024 2:00 PM EDT Office Visit [address] [address] Millicent Brewer CNM Visit for pelvic exam (Primary Dx); Menopausal and postmenopausal disorder 12/19/2024 Travel 12/13/2024 Population Health Risk Score [facility] () Department [address] [place] [phone] Provider, Population Health Generic from Last [...] EDT) Sodium 139 135 - 145 mmol/L [facility] Potassium 3.7 3.3 - 5.1 mmol/L [facility] Chloride 104 96 - 108 mmol/L [facility] Carbon Dioxide 25 22 - 29 mmol/L [facility] Anion Gap 14 12 - 20 [facility] Urea Nitrogen (BUN) 20(H) 9 - 16 mg/dL [facility] Creatinine, Serum 0.78 0.5 - 1.4 mg/dL [facility] Estimated Glomerular Filt Rate >60 [facility] Comment:Chronic Kidney Disea se: Estimated GFR < 60 mL/min/1.64n8Ajaecp Kidney Disease: Estimated GFR < 15 mL/min/1.73m2 Glucose 85 60 - 115 mg/dL [facility] Calcium 9.5 8.4 - 10.2 mg/dL [facility] Blood Venous blood specimen / Unknown 01/27/2025 3:26 PM EDT 01/27/2025 4:02 PM EDT us Storm Name MD LAB BLOOD ORDERABLES Final Resul t [facility] [address] [place] [phone] * BI Mammogram Screening Tomosynthesis Bilateral (01/16/2024 12:00 PM EDT) Anatomical Region Laterality Modality Breast Bilateral Mammography 01/16/2024 12:0 0 PM EDT Narrative 01/22/2024 8:57 PM EDT ? [facility] [place] ? [address] ?[place] [address] ? Mammography Report ? Signed ? Patient: Jason Singh,Merna L ?MR# ?? : [id number] ? : 1965 ?Acct:[id number] ? Age/Sex: 58 / F ?ADM Date: 04/16/24 ? Loc: HO.MAMMO ? Attending : Storm Name MD ? Ordering Physician: Name,Storm MD ?Results: 2Benign Fi ?? ndings ? Date of Service: 01/16/24 ?Follow Up: 1 Year From Orig ?? inal Mammogram ? Procedure(s): MM tomosynthesis screening BI ?? Accession Number(s): [id number] ? cc: Name,Storm BECKWITH ? EXAMINATION: ?? [...] ? DD/DT: // 1200 ? TD/TT: ? Tonguer: ? Procedure Note Donotuseinterpreter, Image - 01/22/2024 [facility] [address] [place], [place] [address] Mammography Report Signed Patient: Merna Goff LMR# : [id number] : 1965Acct:[id number] Age/Sex: 58 / FADM Date: 01/16/24 Loc: HO.MAMMO Attending Dr: Storm Mayo MD Ordering Physician: Storm Mayo MDResults: 2Benign Fi ndings Date of Service: 01/16/24Follow Up: 1 Year From Orig inal Mammogram Procedure(s): MM tomosynthesis screening BI Accession Number(s): [id number] cc: Storm Mayo MD EXAMINATION: MM SCREENING [...] MD in OV> 01/22/242052 DD/ 1200 TD/TT: Tonguer: Storm Mayo MD IM BI PROCEDURES Edited Result - Final * (ABNORMAL) Lipid Panel, Standard (01/12/2024 9:25 AM EDT) Triglycerides 160(H) <150 mg/dL [facility] Comment:Desirable Triglyceri de: less than 150 mg/dLBorderline High Triglyceride 150-199 mg/dLHigh Triglyceride: 200-499 mg/dLVery High Triglyceride: greater than or equal to 5OO mg/dL Cholesterol 123 <200 mg/dL [facility] Comment:Desirable Cholestero l: less than 200 mg/dLBorderline High Cholesterol: 200-239 mg/dLHigh Cholesterol: greater than 239 mg/dL LDL Cholesterol Calculated 48 <100 mg/dL [facility] Comment:Desirable LDL: less than 100 mg/dLNear Optimal/Above Optimal LDL: 110- 129 mg/dLBorderline High LDL: 130-159 mg/dLHigh LDL: 160-189 mg/dLVery High LDL: greater than or equal to 190 mg/dL HDL Cholesterol 43 >40 mg/dL [facility] Comment:Desirable HDL: great er than 40 mg/dL Note: This HDL assay may give artificially low results in patients with liver disease. Blood Venous blood specimen / Unknown 01/12/2024 9:25 AM EDT 01/12/2024 11:29 AM EDT us Storm Mayo MD LAB BLOOD ORDERABLES Final Resul t [facility] [address] [place] [phone] * Image-Guided Pap with Age-Based Screening Protocols (12/15/2022 10:55 AM EDT) Comment [employer] Comment: This order for age-based cervical cancer and STI screening follows ACOG guidelines(PB 168, 140, DRD134). See individual assays for performing site location. Clinical Information: None given [facility] LMP: NONE GIVEN [facility] Prev. PAP: NONE GIVEN [facility] Prev. BX: NONE GIVEN [facility] SOURCE: None given [facility] Statement Of Adequacy: [facility] Comment: Satisfactory for evaluation. Endocervical/transformation zone component absent. Interpretation/ Result: Negative for intraepithelial lesion or malignancy. [facility] [place] [facility] COMMENT: This Pap test has been evaluated with computer assisted technology. [facility] [place] [facility] Cytotechnologis t: [facility] [place] [facility] Comment: DMM, CT(ASCP) CT screening location: [address] ??[phone] (Always Message) [facility] Comment: EXPLANATORY NOTE: The Pap is a [...] HPV nRNA E6/E7 Not Detected Not Detected [facility] Comment: Methodology: Certified Prosthetist-Mediated Amplification This assay detects E6/E7 viral messenger RNA (mRNA) from 14 high-risk HPV types (16,18,31,33,35,39,45,51,52,56,58,59,66,68). Cervical sources are required for HPV testing. If a vaginal source from a patient who has had a total hysterectomy with removal of cervix was submitted, please contact the testing laboratory for alternative testing options. For additional information, please refer to http://education.[employer]/faq/OWG075l0 (This link if provided for information/ educational purposes only.) Cytology specimen container (physical object) 12/15/2022 10:55 AM EDT 12/16/2022 7:33 AM EDT Millicent GROVER LAB BLOOD ORDERABLES Aby l Result [address], [place] [address] [facility] [address] [place] [phone] * Hm Colonoscopy (10/21/2014) Colonoscopy Normal Normal [facility] External Provider HEALTH MAINTENANCE Final Result from Last 3 Months or Most Recently Relevant to Health Maintenance Insurance [facility] C3 Care Teams Ship'S Master Relationship Specialty Start Date End Date Name, MD Storm [address] [place] [phone] PCP - General Family Medicine 05/18/17
--- OUTSIDE RECORDS SUMMARY | 2025-01-28 13:21 | XMS_ITS | Encounter Summary ---
Author Organization [employer] Address [address] [place] [address] 7t [place] [address] Care Team Providers Care Train Control Electronic Technician Name Role Phone Name, Storm BECKWITH Primary Care Provider [phone] Encounter Details Date Type Department Care Team (Latest Contact Info) Description 12/10/2019 Abstract [facility] CONVERSIONS Dental, Provider, DDS Social History [...] on filedocumented in this encounter Care Teams Train Control Electronic Technician Relationship Specialty Start Date End Date Name, MD Storm [address] [place] [address] PCP - General Family Medicine 05/18/17 documented as of this encounter
--- OUTSIDE RECORDS SUMMARY | 2025-01-28 13:21 | XMS_ITS | Encounter Summary ---
Author Organization [employer] Address [address] [facility] 7t [place] [address] Care Team Providers Care Nurse Administrator Name Role Phone Name, Storm BECKWITH Primary Care Provider [phone] Encounter Details Date Type Department Care Team ([facility] st Contact Info) Description 2023 Abstract [facility] [address] [place], [place] [phone] Name, MD Storm [address] [place] [address] Social History Tobacco Use Types Packs/Day Years [...] documented as of this encounter Care Teams Nurse Administrator Relationship Specialty Start Date End Date Name, MD Storm [address] [place] [address] PCP - General Family Medicine 05/18/17 documented as of this encounter
--- OUTSIDE RECORDS SUMMARY | 2025-01-28 13:21 | XMS_ITS | Encounter Summary ---
Author Organization [employer] Address [address] [facility] 7t [place] [address] Care Team Providers Care Skate Hop Name Role Phone Name, Storm BECKWITH Primary Care Provider [phone] Encounter Details Date Type Department Care Team ([facility] st Contact Info) Description 03/14/2023 Abstract [facility] MEDICINE [address] [place], [place] [phone] Name, MD Storm [address] [place] [address] Social History Tobacco Use Types Packs/Day Years [...] documented as of this encounter Care Teams Skate Hop Relationship Specialty Start Date End Date Name, MD Storm [address] [place] [address] PCP - General Family Medicine 05/18/17 documented as of this encounter
--- OUTSIDE RECORDS SUMMARY | 2025-01-28 13:21 | XMS_ITS | Encounter Summary ---
Author Organization [employer] Address [address] [facility] 7t [place] [address] Care Team Providers Care Residential Solar Sales Consultant Name Role Phone Name, Storm BECKWITH Primary Care Provider [phone] Encounter Details Date Type Department Care Team ([facility] st Contact Info) Description 01/23/2025 Telephone [facility] MEDICINE 230 [place], [place] [phone] Anu Cooper, RN Social History Tobacco Use [...] EDT Tc to pt via BLS id: [id number] to let them know per PCP I do not recommend any med changes. . Pt advised to continue taking their medication as prescribed and checking their BP daily. Pt verbalized understanding and no further questions or concerns at this time. * Telephone Encounter - Manoj Mohr - 01/23/2025 2:31 PM EDT Tc from pt returning call regarding prior message. Contact pt at [phone] * Telephone Encounter - Anu Cooper RN - 01/23/2025 1:15 PM EDT Tc to pt via BLS id: [id number] to let them know per PCP I [...] documented as of this encounter Care Teams Residential Solar Sales Consultant Relationship Specialty Start Date End Date Name, MD Storm [address] [place] [address] PCP - General Family Medicine 05/18/17 documented as of this encounter
--- OUTSIDE RECORDS SUMMARY | 2025-01-28 13:21 | XMS_ITS | Encounter Summary ---
Author Organization [employer] Address [address] [place] [address] 7t [place] [address] Care Team Providers Care Furnace Repairer Helper Name Role Phone Name, Storm BECKWITH Primary Care Provider [phone] Encounter Details Date Type Department Care Team [...] on filedocumented in this encounter Care Teams Furnace Repairer Helper Relationship Specialty Start Date End Date Name, MD Storm [address] [place] [address] PCP - General Family Medicine 05/18/17 documented as of this encounter
--- OUTSIDE RECORDS SUMMARY | 2025-01-28 13:21 | XMS_ITS | Encounter Summary ---
Author Organization [employer] Address [address] [facility] 7t [place] [address] Care Team Providers Care Van Loader Name Role Phone Name, Storm BECKWITH Primary Care Provider [phone] Encounter Details Date Type Department Care Team ([facility] st Contact Info) Description 10/21/2022 Orders Only [facility] MED & PEDS [address] [place] [address] Tarsha Fraire LPN Social History Tobacco Use [...] on filedocumented in this encounter Care Teams Van Loader Relationship Specialty Start Date End Date Name, MD Storm [address] [place] [address] PCP - General Family Medicine 05/18/17 documented as of this encounter
== END 2025-01-28 11:20 | disposition home or self-care (01) ==
LOC: HO.MAMMO 11:19
PROVIDERS: PCP Internal Medicine Geriatric Medicine; Visit Provider Internal Medicine Geriatric Medicine
DX: Z12.31 Encounter for screening mammogram for malignant neoplasm of breast (principal)
CPT/HCPCS: 77063; 77067

== ENCOUNTER → 2025-01-28 11:45 | Outpatient (BNV) | payer MEDICAID, SELFPAY | PROVIDERS: PCP Internal Medicine Geriatric Medicine; Visit Provider Internal Medicine | DX: Z12.31 Encounter for screening mammogram for malignant neoplasm of breast (principal) | CPT/HCPCS: 77063; 77067 ==

== ENCOUNTER 2025-06-10 09:23 | Outpatient (REF) | payer MEDICAID, SELFPAY ==
--- OUTSIDE RECORDS SUMMARY | 2025-06-10 09:00 | XMS_ITS | Encounter Summary ---
Author Organization [employer] Address [address] [place] [address] 7t [place] [address] Care Team Providers Care Bight Maker Name Role Phone Name, Storm BECKWITH Primary Care Provider [phone] Reason for Visit * Reason Comments Follow-up Encounter Details Date Type Department Care Team (Latest Contact Info) Description 06/10/2025 9:00 AM EDT Office Visit [facility] MEDICINE [address] [place], [place] [phone] Name, MD Storm [address] [place] [address] Hypertension, unspecified type (Primary Dx); On statin [...] Pests such as bugs, ants, or mice;Lead Snook or Pipes;Mold;Inadequate heat 06/10/2025 Food Insecurity Answer [...] things 3 06/10/2025 9:06 AM EDT Greg Diaz MA Trouble relaxing 1 06/10/2025 9:06 AM [...] Description 09/02/2025 9:00 AM EST Office Visit [facility] MEDICINE [address] [place] [phone] NameStorm MD [address] [place] [address] Scheduled Orders Name Type Priority Associated Diagnoses Orde r Schedule Comprehensive Metabolic Panel Lab Routine Hypertension, unspecified type On statin therapy Expected: 06/10/2025 (Approximate), Expires: 06/10/2026 Lipid Panel, Standard Lab Routine Hypertension, unspecified type On statin therapy Expected: 06/10/2025 (Approximate), Expires: 06/10/2026 HIV-1/2 Antigen and Antibodies, Fourth Generation, with Reflexes Lab Routine Screening for HIV (human immunodeficiency virus) Expected: 06/10/2025 (Approximate), Expires: 06/10/2026 Hepatitis C Antibody with Reflex to HCV, RNA, Quantitative, Real-Time PCR Lab Routine Need for hepatitis C screening test Expected: 06/10/2025, Expires: 06/10/2026 documented as of this encounter Visit Diagnoses [...] documented as of this encounter Care Teams Bight Maker Relationship Specialty Start Date End Date Name, MD Storm [address] [place] [address] PCP - General Family Medicine 05/18/17 documented as of this encounter
--- OUTSIDE RECORDS SUMMARY | 2025-06-10 10:47 | XMS_ITS | Encounter Summary ---
Author Organization [employer] [facility] Address [address] [place] [address] 7t [place] [address] Care Team Providers Care Construction Driller Name Role Phone Name, Storm BECKWITH Primary Care Provider [phone] Encounter Details Date Type Department Care Team (Late Contact Info) Description 03/14/2023 Abstract [facility] MEDICINE [address] [place] [phone] Name, MD Storm [address] [place] [address] [phone] Social History Tobacco Use Types Packs/Day Years [...] Encounters Date Type Department Care Team (Late Contact Info) Description 09/02/2025 9:00 AM EST Office Visit [facility] MEDICINE [address] [place] [address] [phone] Name, MD Storm [address] [place] [phone] documented as of this encounter Visit Diagnoses Not on filedocumented in this encounter Additional Health Concerns Assessment Noted Time PHQ-9 Depression Total Score: 4 01/14/20 23 10:14 AM EDT documented as of this encounter Care Teams Construction Driller Relationship Specialty Start Date End Date Name, MD Storm [address] [facility] [place] [address] PCP - General Family Medicine 05/18/17 documented as of this encounter
--- OUTSIDE RECORDS SUMMARY | 2025-06-10 10:47 | XMS_ITS | Encounter Summary ---
Author Organization [employer] Address [address] [place] [address] 7t [place] [address] Care Team Providers Care Immunopathologist Name Role Phone Name, Storm BECKWITH Primary Care Provider [phone] Encounter Details Date Type Department Care Team (Late st Contact Info) Description 10/21/2022 Orders Only [facility] [address] [place] [address] Tarsha Fraire LPN Social History Tobacco Use [...] Description 09/02/2025 9:00 AM EST Office Visit [facility] MEDICINE [address] [place] [address] Storm Mayo MD [address] [place] [address] documented as of this encounter Visit Diagnoses Not on filedocumented in this encounter Care Teams Immunopathologist Relationship Specialty Start Date End Date Storm Mayo MD [address] [place] [address] PCP - General Family Medicine 05/18/17 documented as of this encounter
--- OUTSIDE RECORDS SUMMARY | 2025-06-10 10:47 | XMS_ITS | Encounter Summary ---
Author Organization [employer] [facility] Address [address] [place] [address] 7t [place] [address] Care Team Providers Care Hotel Housekeeper Name Role Phone Name, Storm BECKWITH Primary Care Provider [phone] Encounter Details Date Type Department Care Team (Late Contact Info) Description 2023 Abstract [facility] MEDICINE [address] [place] [address] [phone] Name, MD Storm [address] [place] [address] [phone] Social History Tobacco Use Types Packs/Day Years [...] Description 09/02/2025 9:00 AM EST Office Visit [facility] MEDICINE [address] [place] [address] [phone] Name, MD Storm [address] [place] [phone] documented as of this encounter Visit Diagnoses Not on filedocumented in this encounter Additional Health Concerns Assessment Noted Time PHQ-9 Depression Total Score: 4 01/14/20 23 10:14 AM EDT documented as of this encounter Care Teams Hotel Housekeeper Relationship Specialty Start Date End Date Name, MD Storm [address] [facility] [place] [address] PCP - General Family Medicine 05/18/17 documented as of this encounter
--- OUTSIDE RECORDS SUMMARY | 2025-06-10 10:47 | XMS_ITS | Encounter Summary ---
Author Organization [employer] Address [address] [facility] 7t [place] [address] Care Team Providers Care Excel Developer Name Role Phone Name, Storm BECKWITH Primary Care Provider [phone] Reason for Visit * Reason Comments Med Refill Encounter Details Date Type Department Care Team ([facility] st Contact Info) Description 06/04/[address] [facility] CHC MED & PEDS [address] [place], [place] [phone] Name, MD Storm [address] [place] [address] Vitamin D deficiency Social History Tobacco Use Types Packs/Day Years [...] Description 09/02/2025 9:00 AM EST Office Visit [facility] MEDICINE [address] [place] [address] Name, MD Storm [address] [place] [address] documented as of this encounter Visit Diagnoses Diagnosis Vitamin D deficiency documented in this encounter Additional Health Concerns Assessment Noted Time PHQ-9 Depression Total Score: 24 024 11:10 AM EDT documented as of this encounter Care Teams Excel Developer Relationship Specialty Start Date End Date NameStorm MD [address] [place] [address] PCP - General Family Medicine 05/18/17 documented as of this encounter
--- OUTSIDE RECORDS SUMMARY | 2025-06-10 10:47 | XMS_ITS | Clinical Summary ---
Author Organization [employer] Address [address] [place] [address] 7t [place] [address] Care Team Providers Care Work Car Operator Name Role Phone Name, Storm BECKWITH Primary Care Provider [phone] Allergies Active Allergy Reactions Criticality Noted Date Comments Apple Juice 08/09/2017 Lisinopril Rash Low 07/26/2018 Naproxen Rash Low 07/26/2018 Other reaction(s): Rash Other 11/26/2019 Surgical Lubricant 11/26/2019 Medications estradiol (Estrace) 0.1 MG/GM vaginal creamIndication s:Atrophic vaginitis Insert 1 g into the vagina 2 (two) times a week. 42.5 g 2 12/16/19 23 Active citalopram (CeleXA) 40 MG tablet Take 40 mg by mouth in the morning. 12/18/19 23 Active LORazepam (Ativan) 0.5 MG tablet Take 0.5 mg by mouth if needed in the morning and at bedtime. 12/18/19 23 Active traZODone (Desyrel) 50 MG tablet Take 50 mg by mouth if needed at bedtime. 12/18/19 23 Active lactulose (Chronulac) 10 GM/15ML solution TAKE 15 ML BY MOUTH EVERY DAY 500 mL 3 01/24/20 23 Active diphenhydrAMINE (BENADryl) 25 MG capsule Take 2 capsules (50 mg) by mouth every 6 (six) hours if needed for itching. May take 1-2 capsules prn rash or itching 30 capsule 03/02/20 23 Active hydrocortisone 2.5 % cream APPLY TOPICALLY TWICE DAILY 20 g 1 10/23/19 24 Active fluticasone furoate (Arnuity Ellipta) 200 MCG/ACT inhaler Inhale 1 puff in the morning. Rinse mouth with water after use to reduce aftertaste and incidence of candidiasis. Do not swallow. 1 each 11 01/08/20 24 Active albuterol (Ventolin HFA) 108 (90 Base) MCG/ACT inhaler INHALE 2 PUFFS BY MOUTH EVERY 4 TO 6 HOURS NEEDED 18 g 1 05/09/20 24 Active Flowflex COVID-19 Ag Home Test kit USE DIRECTED 05/07/20 24 Active cetirizine (ZyrTEC) 10 MG tabletIndicatio ns:Seasonal allergic reaction TAKE 1 TABLET BY MOUTH EVERY DAY IN THE MORNING 90 tablet 1 07/22/20 24 Active Eye Itch Relief 0.035 % solution PLACE 1 DROP INTO THE AFFECTED EYE(S) TWICE DAILY IN THE MORNING AND AT BEDTIME NEEDED FOR ITCHING 10 mL 2 10/04/19 25 Active polyethylene glycol, PEG, 3350 (Glycolax) 17 GM/SCOOP powderIndicatio ns:Chronic constipation TAKE 17 GM MIXED IN 8 OUNCES OF WATER ONCE DAILY NEEDED 510 g 4 01/14/20 25 Active docusate sodium (Colace) 100 MG capsuleIndicati ons:Chronic constipation Take 1 tab po bid prn constipation 60 capsule 3 01/14/20 25 Active hydroCHLOROthia zide 12.5 MG tablet Take 1 tablet (12.5 mg) by mouth Once per day. 30 tablet 11 01/14/20 25 2025 Active Blood Pressure kitIndications: Hypertension, unspecified type For home use once a day 1 kit 01/14/20 25 Active pantoprazole (ProtoNix) 20 MG EC tabletIndicatio ns:Heartburn TAKE 1 TABLET BY MOUTH EVERY DAY IN THE MORNING DO NOT BREAK, CRUSH, DISSOLVE OR CHEW 90 tablet 1 02/04/20 25 Active atorvastatin (Lipitor) 20 MG tablet TAKE 1 TABLET BY MOUTH EVERY DAY 90 tablet 3 04/08/20 25 Active fluticasone (Flonase) 50 MCG/ACT nasal spray Administer 2 sprays into each nostril 2 times daily. 16 g 04/14/20 25 Active Acetaminophen Extra Strength 500 MG tablet TAKE 1-2 TABLETS BY MOUTH EVERY 8 HOURS NEEDED FOR RIGHT SHOULDER PAIN 90 tablet 04/14/20 25 Active cholecalciferol VITAMIN D (Vitamin D-3) 50 MCG (2000 UT) tabletIndicatio ns:Vitamin D deficiency TAKE 1 TABLET BY MOUTH EVERY DAY 90 tablet 3 06/05/20 25 Active cholecalciferol (Vitamin D-3) 50 MCG (2000 UT) tabletIndicatio ns:Vitamin D deficiency TAKE 1 TABLET BY MOUTH EVERY DAY 90 tablet 3 11/03/19 24 2024 Discontinued Active Problems Problem Noted Date Diagnosed Date [...] Problem Noted Date Diagnosed Date Resolved Date Subacute pansinusitis 04/14/20252024 Assessment & Plan (04/14/2025 9:13 AM EDT): Rapid viral testing negative, this is probably a complication of a recent viral URI + Augmentin x 1 week rest (sleep at least 8 hours a night). Hydrate with plenty of water (avoid caffeine and alcohol). Use saline nose drops to loosen mucus + Flonase Take Acetaminophen (Tylenol )/Ibuprofen as needed to reduce fever, headache, body aches or discomfort Gargle with salt water and use throat sprays/lozenges for throat pain. Use heated, humidified air. If you do not have a humidifier, take hot showers. Cover coughs and sneezes using the crook of your elbow. If you have a fever, stay home and away from others (self isolation) until fever-free for 72 hours (temperature should be less than 100 F without medication). Acute respiratory disease 11/25/2023 Assessment & Plan (11/25/2023 9:08 PM EST): Pt w respiratory symptoms likely viral with no concerning symptoms nor concerning findings on exam -here today COVID ,strep and flu neg -supportive tx advised -guaifenesin and albuterol refill -hydration -Warm compresses in back area -alarm signs and symptoms advised Asthma 03/12/2012 01/08/2024 Encounters Date Type Department Care Team Description 06/10/2025 9:00 AM EDT Office Visit [facility] [address] [place] [address] Storm Mayo MD Hypertension, unspecified type (Primary Dx); On statin therapy; Screening for HIV (human immunodeficiency virus); Need for hepatitis C screening test 06/10/2025 Travel 06/06/2025 Telephone [facility] [address] [place] [address] Storm Mayo MD CHARTPREP 06/04/2025 Refill [facility] MED & PEDS [address] [place], [place] [phone] Storm Mayo MD Vitamin D deficiency 04/14/2025 9:00 AM EDT Office Visit [facility] [address] [place] [address] Karis Traore MD Subacute pansinusitis (Primary Dx) 04/14/2025 Travel 04/08/2025 Refill [facility] [address] [place] [address] Storm Mayo MD from Last 3 Months Immunizations Immunization Administration Dates Next Due Influenza injectable quadriv [...] Pests such as bugs, ants, or mice;Lead Wilsey or Pipes;Mold;Inadequate heat 06/10/2025 Food Insecurity Answer [...] Mass Index 25.66 06/10/2025 9:05 AM EDT Plan of Treatment Upcoming Encounters Date Type Department Care Team (Late st Contact Info) Description 09/02/2025 9:00 AM EST Office Visit [facility] [address] [place] [address] Name, MD Storm [address] [place] [address] Health Maintenance Due Date Last Done Comments CT Colonography 1964 FIT DNA/Cologuard 1965 FIT 1965 FOBT 1965 HIV Screening 1965 Sigmoidoscopy 1965 Hepatitis C Screening 1982 RSV Patients and Patients Aged 60 years or older (1 - Risk 60-74 years 1-dose series) 2024 Colonoscopy 10/21/2024 10/21/2014 Colorectal Cancer Screening 10/21/2024 COVID-19 Vaccine ( season) 2025 09/15/2021, 02/10/2021, 01/13/2021 Influenza Vaccine (#1) 2025 , 09/11/2023, 06/09/2022, Additional history exists Depression Monitoring 12/08/2025 06/10/2025, 025 Alcohol/Substance Use Screening 06/10/2026 06/10/2025 Disability Screening 06/10/2026 06/10/2025 SDOH Screening 06/10/2026 06/10/2025 Tobacco Screening 06/10/2026 06/10/2025 Mammogram 01/28/2027 01/28/2025, 12/31, 01/12/2023, Additional history exists Cervical Cancer Screening 12/16/2027 HPV/Cotest 12/16/2027 12/15/2022, 11/13/2019 Pap Smear 12/16/2027 12/15/2022, 11/13/2019 Lipid Panel 01/11/2029 01/12/2024, 12/31, 01/07/2022, Additional history exists DTaP/Tdap/Td Vaccines (3 - Td or Tdap) 05/23/2033 05/23/2023, 08/01/2012, 04/23/2008 Zoster Vaccines Completed 02/23/2023, 12/16/2022 Pneumococcal Vaccine: 50+ Years Completed 05/10/2024 HIB Vaccines Aged Out No longer eligi [...] patient's age to complete this topic Meningococcal B Vaccine Aged Out No l onger eligible based on patient's age to complete [...] Procedure Name Priority Date/Time Associated Diagnosis Comments POCT RAPID STREP A Routine 04/14/2025 9: 13 AM EDT Subacute pansinusitis POCT COVID-19 AG CUMMINS ID NOW Routine 04/14/2025 9:13 AM EDT Subacute pansinusitis BI MAMMOGRAM SCREENING TOMOSYNTHESIS BILATERAL Routine 01/28/2025 11:25 AM EDT LIPID PANEL, STANDARD Routine 01/12/2024 9:25 AM EDT High cholesterol IMAGE-GUIDED PAP W/AGE BASED SCR PROTOCOLS Routine 12/15/2022 10:55 AM EDT Cervical cancer screening HM COLONOSCOPY Routine 10/21/2014 from Last 3 Months or Most Recently Relevant to Health Maintenance Results * POCT COVID-19 Ag Cummins ID NOW (04/14/2025 9:13 AM EDT) Pathologist [facility] Coronavirus Antigen PCR Negative Negative, Indeterminate, None Detected, Invalid, Specimen unsatisfactory for evaluation, Weakly Positive, 2+ Swab 04/14/2025 9:13 AM EDT Karis Traore MD POINT OF CARE TEST ENTER /EDIT ORDERABLES Final Result * POCT rapid strep A manually resulted (04/14/2025 9:13 AM EDT) Pathologist [facility] Rapid Strep A Screen Negative Negative, None Detected Swab 04/14/2025 9:13 AM EDT Karis Traore MD POINT OF CARE TEST ENTER /EDIT ORDERABLES Final Result * BI Mammogram Screening Tomosynthesis Bilateral (01/28/2025 11:25 AM EDT) Anatomical Region Laterality Modality Breast Bilateral Mammography 01/28/2025 11:2 5 AM EDT Narrative 02/02/2025 6:59 PM EDT [facility] [address] [place] [address] Mammography Report Signed Patient: Merna Goff MR# : [id number] : 1965 Acct:[id number] Age/Sex: 59 / F ADM Date: 01/28/25 Loc: HO.MAMMO Attending Dr: Storm Mayo MD Ordering Physician: Storm Mayo MD Results: 2Benign Fi ndings Date of Service: 01/28/25 Follow Up: 1 Year From Orig inal Mammogram Procedure(s): MM tomosynthesis screening BI Accession Number(s): [id number] cc: Storm Mayo MD EXAMINATION: MM SCREENING DIGITAL BREAST TOMOSYNTHESIS, BILATERAL CLINICAL INFORMATION: Screening. Asymptomatic. COMPARISON: Mammography: Comparison is made with available priors TECHNIQUE: Digital breast mammography with tomosynthesis is performed in both the craniocaudal and mediolateral oblique views along with computer-aided detection (CAD). FINDINGS: The breasts are heterogeneously dense, which may obscure small masses (ACR BI-RADS breast composition Category c). Bilateral Marker clips. Bilateral scattered focal asymmetries are stable. There are no significant masses, abnormal calcifications, or other abnormalities. MM/MM tomosynthesis screening BI IMPRESSION: No mammographic evidence of malignancy. ASSESSMENT: BI-RADS BI-RADS 2 - Benign Findings RECOMMENDATION: Routine annual mammography screening. 1 year F/U This examination should not preclude the clinical evaluation of a suspicious palpable abnormality. This patient's information was entered into a reminder system with a target due date for their next mammogram. Electronically signed by: Anabel Carbajal DO 02/02/2025 06:56 PM EDT RP Dictated By: Anabel Carbajal DO Signed By: <Electronically signed by Anabel Carbajal DO in OV> 02/02/25 1856 DD/ 1125 TD/TT: 01/28/25 1145 Firearms Sales Associate: Procedure Note Donotuseinterpreter, Image - 02/02/2025 [facility] [address] [place] [address] Mammography Report Signed Patient: Merna Goff LMR# : [id number] : 1965Acct:[id number] Age/Sex: 59 / FADM Date: 01/28/25 Loc: MAMMO Attending Dr: Storm Mayo MD Ordering Physician: Storm Mayo MDResults: 2[facility] Date of Service: 01/28/25Follow Up: 1 Year From Orig inal Mammogram Procedure(s): MM tomosynthesis screening BI Accession Number(s): [id number] cc: Name,Storm BECKWITH EXAMINATION: MM SCREENING DIGITAL BREAST TOMOSYNTHESIS, BILATERAL CLINICAL INFORMATION: Screening. Asymptomatic. COMPARISON: Mammography: Comparison is made with available priors TECHNIQUE: Digital breast mammography with tomosynthesis is performed in both the craniocaudal and mediolateral oblique views along with computer-aided detection (CAD). FINDINGS: The breasts are heterogeneously dense, which may obscure small masses (ACR BI-RADS breast composition Category c). Bilateral Marker clips. Bilateral scattered focal asymmetries are stable. There are no significant masses, abnormal calcifications, or other abnormalities. MM/MM tomosynthesis screening BI IMPRESSION: No mammographic evidence of malignancy. ASSESSMENT: BI-RADS BI-RADS 2 - Benign Findings RECOMMENDATION: Routine annual mammography screening. 1 year F/U This examination should not preclude the clinical evaluation of a suspicious palpable abnormality. This patient's information was entered into a reminder system with a target due date for their next mammogram. Electronically signed by: Anabel Carbajal DO 02/02/2025 06:56 PM EDT RP Dictated By: Anabel Carbajal DO Signed By: <Electronically signed by Anabel Carbajal DO in OV> 02/02/25 1856 DD/ 1125 TD/TT: 01/28/25 1145 Firearms Sales Associate: Storm Mayo MD [facility] PROCEDURES Edited Result - Final * (ABNORMAL) Lipid Panel, Standard (01/12/2024 9:25 AM EDT) Triglycerides 160(H) <150 mg/dL [facility] Comment:Desirable Triglyceri de: less than 150 mg/dLBorderline High Triglyceride 150-199 mg/dLHigh Triglyceride: 200-499 mg/dLVery High Triglyceride: greater than or equal to 5OO mg/dL Cholesterol 123 <200 mg/dL [facility] Comment:Desirable Cholestero l: less than 200 mg/dLBorderline High Cholesterol: 200-239 mg/dLHigh Cholesterol: greater than 239 mg/dL LDL Cholesterol Calculated 48 <100 mg/dL [facility] Comment:Desirable LDL: less than 100 mg/dLNear Optimal/Above Optimal LDL: 110- 129 mg/dLBorderline High LDL: 130-159 mg/dLHigh LDL: 160-189 mg/dLVery High LDL: greater than or equal to 190 mg/dL HDL Cholesterol 43 >40 mg/dL [facility] Comment:Desirable HDL: great er than 40 mg/dL Note: This HDL assay may give artificially low results in patients with liver disease. Blood Venous blood specimen / Unknown 01/12/2024 9:25 AM EDT 01/12/2024 11:29 AM EDT us Storm Mayo MD LAB BLOOD ORDERABLES Final Resul t [facility] [address] [place] [phone] * Image-Guided Pap with Age-Based Screening Protocols (12/15/2022 10:55 AM EDT) Comment [facility] Comment: This order for age-based cervical cancer and STI screening follows ACOG guidelines(PB 168, 140, PUI995). See individual assays for performing site location. Clinical Information: None given [facility] LMP: NONE GIVEN [facility] Prev. PAP: NONE GIVEN [facility] Prev. BX: NONE GIVEN [facility] SOURCE: None given [facility] Statement Of Adequacy: [facility] Comment: Satisfactory for evaluation. Endocervical/transformation zone component absent. Interpretation/ Result: Negative for intraepithelial lesion or malignancy. [facility] COMMENT: This Pap test has been evaluated with computer assisted technology. [employer] Cytotechnologis t: [facility] Comment: DMM, CT(ASCP) CT screening location: [place] [address] (Always Message) [facility] Comment: EXPLANATORY NOTE: The Pap is a [...] HPV nRNA E6/E7 Not Detected Not Detected [facility] Comment: Methodology: Laboratory Courier-Mediated Amplification This assay detects E6/E7 viral messenger RNA (mRNA) from 14 high-risk HPV types (16,18,31,33,35,39,45,51,52,56,58,59,66,68). Cervical sources are required for HPV testing. If a vaginal source from a patient who has had a total hysterectomy with removal of cervix was submitted, please contact the testing laboratory for alternative testing options. For additional information, please refer to http://education.[employer]/faq/IIG053f4 (This link if provided for information/ educational purposes only.) Cytology specimen container (physical object) 12/15/2022 10:55 AM EDT 12/16/2022 7:33 AM EDT Millicent Brewer [facility] BLOOD ORDERABLES Aby farrar Result [facility] [address], [place] [address] [facility] [address] [place] [address] * Colonoscopy (10/21/2014) Colonoscopy Normal Normal [facility] External Provider HEALTH MAINTENANCE Final Result from Last 3 Months or Most Recently Relevant to Health Maintenance Insurance [address] [place] [address] [facility] C3 Care Teams Work Car Operator Relationship Specialty Start Date End Date Name, MD Storm [address] [place] [address] [place] [id number] PCP - General Family Medicine 05/18/17
--- OUTSIDE RECORDS SUMMARY | 2025-06-10 10:47 | XMS_ITS | Encounter Summary ---
Author Organization [employer] Address [address] [facility] 7t [place] [address] Care Team Providers Care Senior Construction Estimator Name Role Phone Name, Storm BECKWITH Primary Care Provider [phone] Encounter Details Date Type Department Care Team (Latest Contact Info) Description 06/10/2025 Travel Social History Tobacco Use Types Packs/Day [...] Pests such as bugs, ants, or mice;Lead Schriever or Pipes;Mold;Inadequate heat 06/10/2025 Food Insecurity Answer [...] AM EDT documented as of this encounter Functional Status * Over the past 2 weeks, how often have you been bothered by any of the following problems? Question Answer Date of Assessment Author Patient Health Questionnaire -2 Score 3 06/10/2025 9:06 AM Greg Huerta MA * Little interest or pleasure in doing things Answer Date of Assessment Author Several days 06/10/2025 9:06 AM Yeison Huerta MA * Feeling down, depressed, or hopeless Answer Date of Assessment Author More than half the days 06/10/2025 9:06 AM DILMAT Yeison Woodson MA * Trouble falling or staying asleep, [...] or on edge 1 06/10/2025 9:06 AM Greg Huerta MA Not being able to stop or control worrying 1 06/10/2025 9:06 AM Greg Huerta MA Worrying too much about different things 3 06/10/2025 9:06 AM Greg Huerta MA Trouble relaxing 1 06/10/2025 9:06 AM DILMAT Yeison Woodson MA Being so restless that it is hard to sit still 3 06/10/2025 9:06 AM Greg Huerta MA Becoming easily annoyed or irritable 1 06/10/2025 9:06 AM Greg Huerta MA Feeling afraid as if somethi ng awful might happen 3 06/10/2025 9:06 AM Greg Huerta MA DELANEY-7 Total Score 13 06/10/2025 9:06 AM Yeison Huerta MA documented as of this encounter Plan of Treatment Upcoming Encounters Date Type Department Care Team (Late st Contact Info) Description 09/02/2025 9:00 AM EST Office Visit [facility] [address] [place] [address] Name, MD Storm [address] [place] [address] documented as of this encounter Visit Diagnoses Not on filedocumented in this encounter Additional Health Concerns Assessment Noted Time PHQ-9 Depression Total Score: 17 025 9:06 AM EDT documented as of this encounter Care Teams Senior Construction Estimator Relationship Specialty Start Date End Date Name, MD Storm [address] [place] [address] PCP - General Family Medicine 05/18/17 documented as of this encounter
--- OUTSIDE RECORDS SUMMARY | 2025-06-10 10:47 | XMS_ITS | Encounter Summary ---
Author Organization [employer] Address [address] [place] [address] 7t [place] [address] Care Team Providers Care Security Controls Assessor Name Role Phone Name, Storm BECKWITH Primary Care Provider [phone] Reason for Visit * Reason Onset Date Comments CHARTPREP 06/06/2025 Encounter Details Date Type Department Care Team ([facility] st Contact Info) Description 06/06/2025 Telephone [facility] [address] [place], [place] [phone] Name, MD Storm [address] [place] [address] CHARTPREP Social History Tobacco Use Types Packs/Day Years [...] is your housing situation today? I have kyraalan dudley 07/22/[address] you [...] encounter Miscellaneous Notes * Telephone Encounter - Neal Krishnamurthy MA - 06/06/2025 1:06 PM EDT Chart Prep Labs: done Images: done Referrals: complete 06/11/25 3:00 PM [facility] Rima Rosenberg Vaccines due: Covid, Flu, and RSV Screenings: colonoscopy Overdue care gaps: SBIRT, SDOH, PHQ-9, DELANEY-7, Oral health screening, and Disability screen documented in this encounter Plan of Treatment Upcoming Encounters Date Type Department Care Team (Late st Contact Info) Description 09/02/2025 9:00 AM EST Office Visit [facility] [address] [place] [phone] Name, MD Storm [address] [place] [address] documented as of this encounter Visit Diagnoses Not on filedocumented in this encounter Additional Health Concerns Assessment Noted Time PHQ-9 Depression Total Score: 24 024 11:10 AM EDT documented as of this encounter Care Teams Security Controls Assessor Relationship Specialty Start Date End Date NameStorm MD [address] [place] [address] PCP - General Family Medicine 05/18/17 documented as of this encounter
--- OUTSIDE RECORDS SUMMARY | 2025-06-10 10:47 | XMS_ITS | Encounter Summary ---
Author Organization [employer] Address [address] [place] [address] 7t [place] [address] Care Team Providers Care Health Care Sanitary Technician Name Role Phone Name, Storm BECKWITH Primary Care Provider [phone] Encounter Details Date Type Department Care Team (Latest Contact Info) Description 05/07/[address] [facility] CONVERSIONS Dental, Provider, DDS Social History [...] Description 09/02/2025 9:00 AM EST Office Visit [facility] [address] [place] [address] NameStorm MD [address] [place] [address] documented as of this encounter Visit Diagnoses Not on filedocumented in this encounter Care Teams Health Care Sanitary Technician Relationship Specialty Start Date End Date Storm Mayo MD [address] [place] [address] PCP - General Family Medicine 05/18/17 documented as of this encounter
--- OUTSIDE RECORDS SUMMARY | 2025-06-10 10:48 | XMS_ITS | Encounter Summary ---
Author Organization [facility] Address [address] [place] [address] 7t [place] [address] Care Team Providers Care Missile Pad Mechanic Name Role Phone Name, Storm BECKWITH Primary Care Provider [phone] Encounter Details Date Type Department Care Team (Latest Contact Info) Description 12/10/2019 Abstract [facility] CONVERSIONS Dental, Provider, DDS Social History Tobacco [...] Description 09/02/2025 9:00 AM EST Office Visit [facility] MED[facility] [address] [place] [address] NameStorm MD [address] [place] [address] documented as of this encounter Visit Diagnoses Not on filedocumented in this encounter Care Teams Missile Pad Mechanic Relationship Specialty Start Date End Date Storm Mayo MD [address] [place] [address] PCP - General Family Medicine 05/18/17 documented as of this encounter
--- OUTSIDE RECORDS SUMMARY | 2025-06-10 10:48 | XMS_ITS | Encounter Summary ---
Author Organization [employer] [facility] Address [address] [place] [address] 7[address] [place] [address] Care Team Providers Care Vigoureux Printer Name Role Phone Name, Storm BECKWITH Primary Care Provider [phone] Encounter Details Date Type Department Care Team (Latest Contact Info) Description 02/24/2021 Abstract [facility] CONVERSIONS Dental, Provider, DDS Social History [...] Description 09/02/2025 9:00 AM EST Office Visit [facility] [address] [place] [address] NameStorm MD [address] [place] [address] documented as of this encounter Visit Diagnoses Not on filedocumented in this encounter Care Teams Vigoureux Printer Relationship Specialty Start Date End Date Storm Mayo MD [address] [place] [address] PCP - General Family Medicine 05/18/17 documented as of this encounter
[2025-06-10 12:15] LABS: Alanine Aminotransferase 24 U/L (0-31); Albumin Level 4.5 g/dL (3.5-5.0); Alkaline Phosphatase 81 U/L (39-117); Anion Gap 13 (12-20); Aspartate Amino Transferase 32 U/L (5-31); Blood Urea Nitrogen 29 mg/dL (9-16); Calcium 9.2 mg/dL (8.4-10.2); Carbon Dioxide 29 mmol/L (22-29); Chloride 104 mmol/L (96-108); Cholesterol 162 mg/dL (<200); Estimated Glomerular Filt Rate > 60; HDL Cholesterol 47 mg/dL (>40); Potassium 3.9 mmol/L (3.3-5.1); Sodium 142 mmol/L (135-145); Total Protein 7.5 g/dL (6.5-8.0); Triglycerides 184 mg/dL (<150)
[2025-06-10 12:28] LABS: HIV Num 1 0.05 S/CO (0.00-0.99); ~HepC Num1 0.07 S/CO (0.00-0.79); ~Hepatitis C Antibody Nonreactive (Nonreactive)
== END 2025-06-10 09:24 | disposition home or self-care (01) ==
LOC: HO.HHCL 09:23
PROVIDERS: PCP Internal Medicine Geriatric Medicine; Visit Provider Internal Medicine Geriatric Medicine
DX: Z11.4 Encounter for screening for human immunodeficiency virus [HIV] (principal); Z11.59 Encounter for screening for other viral diseases; I10 Essential (primary) hypertension; Z79.899 Other long term (current) drug therapy
CPT/HCPCS: 36415; 80053; 80061; 86803; 87389

== ENCOUNTER 2025-06-11 14:35 | Outpatient (AMB) | payer MEDICAID, SELFPAY ==
--- OUTSIDE RECORDS SUMMARY | 2025-06-10 09:00 | XMS_ITS | Encounter Summary ---
Author Organization [id number] Address [address] [place] [address] 7t [place] [address] Care Team Providers Care Truck Body Builder Name Role Phone Name, Storm BECKWITH Primary Care Provider Reason for Visit * Reason Comments Follow-up Encounter Details Date Type Department Care Team (Latest Contact Info) Description 06/10/2025 9:00 AM EDT Office Visit [facility] MEDICINE [address] [place], [place] [phone] Name, MD Storm [address] [place] [address] Hypertension, unspecified type (Primary Dx); On statin therapy; Screening for HIV (human immunodeficiency virus); Need for hepatitis C screening test Social History Tobacco Use Types Packs/Day Years Used Date Smoking Tobacco: Never Passive Smoke Exposure: Never Smokeless Tobacco: Never Tobacco Cessation:Counseling Given: Not Answered Alcohol Use Standard Drinks/Week Comments Never 0 (1 standard drink = 0.6 oz pur e alcohol) Depression Answer Date Recorded Patient Health Questionnaire-9 Score 17 06/10/2025 Patient Health Questionnaire-9 Score 17 06/10/2025 Last PHQ-9: Questionnaire Data Not on file 0 06/10/2025 Housing Stability Answer Date Recorded What is your housing situation today? I have kyra dudley 06/10/[address] you li ve. Do you have problems with any of the following? Pests such as bugs, ants, or mice;Lead Filer or Pipes;Mold;Inadequate heat 06/10/2025 Food Insecurity Answer Date Recorded Within the past 12 months, y ou worried that your food would run out before you got money to buy more: Often true 06/10/2025 Within the past 12 months,th e food you bought just didn't last and you didn't have enough money to get more: Often true 06/2025 Transportation Answer Date Recorded In the past 12 months, has l ack of transportation kept you from medical appts, meetings, work or from getting things needed for daily living? No 06/10/2025 Utilities Answer Date Recorded In the past 12 months, has t he electric, gas, oil or water company threatened to shut off services in your home? No 06/10/2025 Depression Answer Date Recorded Patient Health Questionnaire-2 Score 3 06/10/2025 Internet Access Answer Date Recorded Internet Access Q1 Yes 06/10/2025 Internet Access Q2 Not on file 06/10/2025 Comments No Sex and Gender Information Value Date Recorded Sex Assigned at Female 08/01/2022 10:15 AM EDT Legal Sex Female 10:15 AM EDT Gender Identity Female 08/01/2022 10:15 AM EDT Sexual Orientation Straight 08/01/2022 10 :15 AM EDT documented as of this encounter Last Filed Vital Signs Vital Sign Reading Time Taken Comments Blood Pressure 125/82 06/10/2025 9:05 AM EDT Pulse 66 06/10/2025 9:05 AM EDT Temperature 36.7 C (98.1 F) 06/10/2025 9:05 AM EDT Respiratory Rate 12 06/10/2025 9:05 AM EDT Oxygen Saturation 97% 06/10/2025 9:05 AM EDT Inhaled Oxygen Concentration - - Weight 61.6 kg (135 lb 12.8 oz) 06/10/2025 9:05 AM EDT Height 154.9 cm (5' 1 ) 06/10/2025 9:05 AM EDT Body Mass Index 25.66 06/10/2025 9:05 AM EDT documented in this encounter Functional Status * Over the past 2 weeks, how often have you been bothered by any of the following problems? Question Answer Date of Assessment Author Patient Health Questionnaire -2 Score 3 06/10/2025 9:06 AM EDT Greg Diaz MA * Little interest or pleasure in doing things Answer Date of Assessment Author Several days 06/10/2025 9:06 AM EDT Yeison Diaz MA * Feeling down, depressed, or hopeless Answer Date of Assessment Author More than half the days 06/10/2025 9:06 AM Yeison Weathers MA * Trouble falling or staying asleep, or sleeping too much Answer Date of Assessment Author Nearly every day 06/10/2025 9:06 AM Yeison Huerta MA * Feeling tired or having little energy Answer Date of Assessment Author Nearly every day 06/10/2025 9:06 AM Yeison Huerta MA * Poor appetite or overeating Answer Date of Assessment Author Several days 06/10/2025 9:06 AM Yeison Huerta MA * Feeling bad about yourself - or that you are a failure or have let yourself or your family down Answer Date of Assessment Author Several days 06/10/2025 9:06 AM Yeison Huerta MA * Trouble concentrating on things, such as reading the newspaper or watching television Answer Date of Assessment Author Nearly every day 06/10/2025 9:06 AM Yeison Huerta MA * Moving or speaking so slowly that other people could have noticed? Or the opposite - being so fidgety or restless that you have been moving around a lot more than usual. Answer Date of Assessment Author Nearly every day 06/10/2025 9:06 AM Yeison Huerta MA * Thoughts that you would be better off or hurting yourself in some way Answer Date of Assessment Author Not at all 06/10/2025 9:06 AM Yeison Huerta MA * Patient Health Questionnaire-9 Score Answer Date of Assessment Author 17 06/10/2025 9:06 AM Yeison Huerta MA * How difficult have these problems made it for you to do your work, take care of things at home, or get along with other people? Answer Date of Assessment Author Extremely difficult 06/10/2025 9:06 AM Yeison Henry MA * Over the last 2 weeks, how often have you been bothered by any of the following problems? Question Answer Date of Assessment Author Feeling nervous, anxious, or on edge 1 06/10/2025 9:06 AM EDT Greg Diaz MA Not being able to stop or control worrying 1 06/10/2025 9:06 AM EDT Greg Diaz MA Worrying too much about different things 3 06/10/2025 9:06 AM EDT Greg Daiz MA Trouble relaxing 1 06/10/2025 9:06 AM EDT Yeison Woodson MA Being so restless that it is hard to sit still 3 06/10/2025 9:06 AM EDT Greg Diaz MA Becoming easily annoyed or irritable 1 06/10/2025 9:06 AM EDT Greg Diaz MA Feeling afraid as if somethi ng awful might happen 3 06/10/2025 9:06 AM EDT Greg Diaz MA DELANEY-7 Total Score 13 06/10/2025 9:06 AM EDT Yeison Diaz MA documented as of this encounter Progress Notes * Storm Mayo MD - 06/10/2025 9:00 AM EDT Subjective Patient ID: Merna Singh is a 60 y.o. female who presents for Follow-up. Patient comes for follow-up visit and she is asymptomatic. Blood pressure control is good on her current dose of HCTZ. She described improvement of constipation since we discontinued the amlodipine. She has appointment to meet with GI tomorrow in preparation for screening colonoscopy. She is due for evaluation with fasting blood work. He is interested in HIV and hepatitis C screening that I ordered today. Review of Systems Constitutional: Negative for chills and fever. HENT: Negative for sore throat. Respiratory: Negative for cough, shortness of breath and wheezing. Cardiovascular: Negative for chest pain, palpitations and leg swelling. Gastrointestinal: Negative for abdominal pain. Objective Vitals: 06/10/25 0905 BP: 125/82 BP Location: Left arm Patient Position: Sitting BP Cuff Size: Adult Pulse: 66 Resp: 12 Temp: 98.1 ??F (36.7 ??C) TempSrc: Temporal SpO2: 97% Weight: 135 lb 12.8 oz (61.6 kg) Height: 5' 1 (1.549 m) Physical Exam Constitutional: Appearance: Normal appearance. Cardiovascular: Rate and Rhythm: Normal rate and regular rhythm. Heart sounds: No murmur heard. No gallop. Comments: She has a history of congenital pulmonary valve stenosis but I did not hear any murmur. Pulmonary: Effort: Pulmonary effort is normal. No respiratory distress. Breath sounds: Normal breath sounds. No wheezing. Musculoskeletal: Right lower leg: No edema. Left lower leg: No edema. Neurological: Mental Status: She is alert. Assessment/Plan Diagnoses and all orders for this visit: Hypertension, unspecified type Comments: Continue current dose of HCTZ. Check CMP. Orders: - Comprehensive Metabolic Panel; Future - Lipid Panel, Standard; Future On statin therapy Comments: Continue atorvastatin 20 for primary prevention. Check fasting blood work listed below. Orders: - Comprehensive Metabolic Panel; Future - Lipid Panel, Standard; Future Screening for HIV (human immunodeficiency virus) - HIV-1/2 Antigen and Antibodies, Fourth Generation, with Reflexes; Future Need for hepatitis C screening test - Hepatitis C Antibody with Reflex to HCV, RNA, Quantitative, Real-Time PCR; Future documented in this encounter Plan of Treatment Upcoming Encounters Date Type Department Care Team (Late st Contact Info) Description 09/02/2025 9:00 AM EST Office Visit [facility] MEDICINE [address] [place] [address] Name, MD Storm [address] [place] [phone] documented as of this encounter Procedures Procedure Name Priority Date/Time Associated Diagnosis Comments HEPATITIS C AB W/REFL TO HCV RNA, QN, PCR Routine 06/10/2025 9:31 AM EDT Need for hepatitis C screening test HIV 1/2 ANTIGEN/ANTIBODY, FOURTH GENERATION W/RFL Routine 06/10/2025 9:31 AM EDT Screening for HIV (human immunodeficiency virus) LIPID PANEL, STANDARD Routine 06/10/2025 9:31 AM EDT Hypertension, unspecified type On statin therapy COMPREHENSIVE METABOLIC PANEL Routine 06/10/2025 9:31 AM EDT Hypertension, unspecified type On statin therapy documented in this encounter Results * Hepatitis C Antibody with Reflex to HCV, RNA, Quantitative, Real-Time PCR (06/10/2025 9:31 AM EDT) Hepatitis C Antibody Nonreactive Nonreactive [facility] Comment:Antibodies to HCV no t detected; does not exclude early acuteHCV infection. Blood Venous blood specimen / Unknown 06/10/2025 9:31 AM EDT 06/10/2025 11:20 AM EDT us Storm Mayo MD LAB BLOOD ORDERABLES Final Resul t [facility] [address] [place] [phone] * HIV-1/2 Antigen and Antibodies, Fourth Generation, with Reflexes (06/10/2025 9:31 AM EDT) HIV AB/AG Nonreactive Nonreactive [facility] Comment:HIV-1 p24 Ag and/or HIV-1/HIV-2 Ab not detected.A test result that is nonreactive does not exclude thepossibility of exposure to or infection with HIV-1 and/orHIV-2. Nonreactive results in this assay for individualswith prior exposure to HIV-1 and/or HIV-2 may be due toantigen and antibody levels that are below the limit ofdetection of this assay.The [employer] HIV Ag/Ab Combo assay result andsupplemental assay results should be interpreted inconjunction with the patient's clinical presentation,history and other laboratory results. If the results areinconsistent with clinical evidence, additional testing issuggested to confirm the result. Blood Venous blood specimen / Unknown 06/10/2025 9:31 AM EDT 06/10/2025 11:20 AM EDT us Storm Mayo MD LAB BLOOD ORDERABLES Final Resul t Performing Organization Address [facility] Co de Phone Number [facility] [address] [place] [phone] * (ABNORMAL) Lipid Panel, Standard (06/10/2025 9:31 AM EDT) Triglycerides 184(H) <150 mg/dL [facility] Comment:Desirable Triglyceri de: less than 150 mg/dLBorderline High Triglyceride 150-199 mg/dLHigh Triglyceride: 200-499 mg/dLVery High Triglyceride: greater than or equal to 5OO mg/dL Cholesterol 162 <200 mg/dL [facility] Comment:Desirable Cholestero l: less than 200 mg/dLBorderline High Cholesterol: 200-239 mg/dLHigh Cholesterol: greater than 239 mg/dL LDL Cholesterol Calculated 79 <100 mg/dL [facility] Comment:Desirable LDL: less than 100 mg/dLNear Optimal/Above Optimal LDL: 110- 129 mg/dLBorderline High LDL: 130-159 mg/dLHigh LDL: 160-189 mg/dLVery High LDL: greater than or equal to 190 mg/dL HDL Cholesterol 47 >40 mg/dL [facility] Comment:Desirable HDL: great er than 40 mg/dL Note: This HDL assay may give artificially low results in patients with liver disease. Blood Venous blood specimen / Unknown 06/10/2025 9:31 AM EDT 06/10/2025 11:20 AM EDT us Storm Mayo MD LAB BLOOD ORDERABLES Final Resul t Performing Organization Address City/[facility]/ZIP Co de Phone Number [facility] [address] [place] [phone] * (ABNORMAL) Comprehensive Metabolic Panel (06/10/2025 9:31 AM EDT) Sodium 142 135 - 145 mmol/L [facility] Potassium 3.9 3.3 - 5.1 mmol/L [facility] Chloride 104 96 - 108 mmol/L [facility] Carbon Dioxide 29 22 - 29 mmol/L [facility] Anion Gap 13 12 - 20 [facility] Urea Nitrogen (BUN) 29(H) 9 - 16 mg/dL [facility] Creatinine, Serum 0.81 0.5 - 1.4 mg/dL [facility] Estimated Glomerular Filt Rate >60 [facility] Comment:Chronic Kidney Disea se: Estimated GFR < 60 mL/min/1.22v1Pumcbl Kidney Disease: Estimated GFR < 15 mL/min/1.73m2 Glucose 89 60 - 115 mg/dL [facility] Calcium 9.2 8.4 - 10.2 mg/dL [facility] Bilirubin, Total 0.5 0.0 - 1.0 mg/dL [facility] Aspartate Amino Transferase 32(H) 5 - 31 U/L [facility] Alanine Aminotransferase 24 0 - 31 U/L [facility] Total Protein 7.5 6.5 - 8.0 g/dL [facility] Albumin Level 4.5 3.5 - 5.0 g/dL [facility] Alkaline Phosphatase 81 39 - 117 U/L [facility] Blood Venous blood specimen / Unknown 06/10/2025 9:31 AM EDT 06/10/2025 11:20 AM EDT Storm Mayo MD LAB BLOOD ORDERABLES Final Resul t [facility] [address] [place] [phone] documented in this encounter Visit Diagnoses Diagnosis Hypertension, unspecified type- Primary On statin therapy Screening for HIV (human immunodeficiency virus) Special screening examination for other specified viral diseases Need for hepatitis C screening test Special screening examination for other specified viral diseases documented in this encounter Additional Health Concerns Assessment Noted Time PHQ-9 Depression Total Score: 17 025 9:06 AM EDT documented as of this encounter Care Teams Truck Body Builder Relationship Specialty Start Date End Date Name, MD Storm [address] [place] [address] PCP - General Family Medicine 05/18/17 documented as of this encounter
--- NOTE | 2025-06-11 14:44 | MHC.OFFVIS ---
Vital Signs 06/11/25 14:49 Height 5 ft 1 in Weight 135 lb BMI 25.5 BP 125/78 Blood Pressure Location Lt brachial Position Sitting Pulse 84 Intake Visit Reasons: [place] screening Intake Note: Patient new consult for 2nd pre Colonoscopy screening.1st one was 11 yrs ago at [facility]. Patient cc: abdominal bloating, poor appetite and daily chronic constipation, denies any other GI issues. Asphalt Spreader Operator Required: Yes Asphalt Spreader Operator Name: [facility] Interpeter Allergies apple (APPLE) Allergy (Severe, Verified 06/11/25 14:43) ITCHING IN THROAT pollen extracts (POLLEN) Allergy (Unknown, Verified 06/11/25 14:43) NASAL SYMPTOMS HAIR DYE Allergy (Unknown, Uncoded 11/18/24 15:43) UNKNOWN Medication List - Last Reconciled 06/11/25 by EDWIN Grayson-LUPE acetaminophen 1,000 mg PO Q8H PRN albuterol sulfate 90 mcg/actuation 2 puffs inhalation Q4-6H PRN albuterol sulfate 90 mcg/actuation (Proventil HFA) 2 puffs inhalation Q4-6H PRN amlodipine 5 mg PO DAILY atorvastatin 20 mg PO DAILY opwqyhnctp-bgauedlbqnlho-fula 50-325-40 mg 1 tab PO Q6H PRN cetirizine 10 mg PO DAILY cholecalciferol (vitamin D3) 50 mcg PO DAILY diphenhydramine HCl (Benadryl Allergy) 25 - 50 mg (1 - 2 x 25 mg) PO TID PRN docusate sodium 100 mg PO DAILY fluticasone propionate 110 mcg/actuation (Flovent HFA) 1 puff inhalation BID lorazepam 0.5 mg PO BID PRN olopatadine 0.1% 1 drp ophthalmic (eye) BID pantoprazole 20 mg PO QAM polyethylene glycol 3350 (Miralax) 17 grams PO DAILY trazodone 50 mg PO BEDTIME PRN HPI HPI [place] screening: Details: 60 year old? female here today for pre colonoscopy screening.? Patient was sent to us by her PCP.? Her last colonoscopy was when patient was 49 years old. Patient reports constipation for several years. Patient states that when she is constipated she gets bloated. Decreased appetite. Patient reports hemorrhoids when straining. Currently she is taking MiraLax and stool softener. Patient reports that she continues to be constipated despite taking both. Denies any personal or family history of gastrointestinal disease, colon polyps, or CRC.? Denies history of difficulty with sedation or anesthesia in the past.? Negative for history of sleep apnea.? Denies any history of cardiac, renal, pulmonary, or hepatic disease.?? No history of infectious? diseases like hepatitis A, B, C, HIV or tuberculosis.? Patient is not on any anticoagulation [facility] Medical History Vitamin D deficiency Depression Asthma Gastritis High cholesterol HTN (hypertension) Social History Alcohol intake: former Patient Tobacco Use Status: Never used Tobacco Current occupational status: disabled Current occupation: right hand dominant Review of Systems Const Denies weight gain and Denies weight loss ENT Reports no additional complaints, Denies dysphagia and Denies odynophagia Card Reports no additional complaints Resp Reports no additional complaints GI Denies abdominal pain, Denies belching, Denies melena, Denies bloating, Denies change in bowel habits, Reports constipation, Denies dysphagia, Denies excessive flatus, Denies dyspepsia, Denies heartburn, Denies diarrhea, Denies loose stools, Denies nausea, Denies odynophagia and Denies vomiting Reports no additional complaints Musc Reports no additional complaints Neuro Reports no additional complaints Psych Reports no additional complaints Endo Reports no additional complaints Physical Exam Vital Signs: Last Vital Signs Pulse 84 06/11/25 14:49 BP 125/78 06/11/25 14:49 BMI result Body Mass Index 25.5 Const General: healthy appearing, no acute distress and well developed Nutritional Appearance: well nourished Orientation/consciousness: patient oriented x3 Resp Effort & Inspection: normal respiratory effort, able to speak in complete sentences, no tracheal deviation and symmetric chest movement Auscultation: clear to auscultation bilaterally Cardio Rate: regular rate GI Inspection: Yes normal to inspection and No distended Palpation (GI): Soft to palpation, not firm, nontender and No hepatosplenomegaly present Auscultation: normal bowel sounds General: Yes no CVA tenderness Back/Spine/Pelvis Back: no CVA tenderness Skin General skin exam: elasticity normal, turgor normal and dry skin Neuro General: patient oriented x3 Psych Appearance: grossly normal Mental Status: mental status grossly normal Assessment & Plan Assessment & Plan (1) Screen for colon cancer: Code(s): Z12.11 - Encounter for screening for malignant neoplasm of colon (2) Constipation: Code(s): K59.00 - Constipation, unspecified Qualifiers: Constipation type: slow transit constipation Qualified Code(s): K59.01 - Slow transit constipation Plan Patient will start taking Dulcolax daily. Increase fluid intake and activity to promote better bowel motility. Will check thyroid, vitamin-D, B12 and folate. Patient will return in 10 weeks to discuss the prep. Message sent to surgical schedulers to book procedure for patient. She is agreeable to current plan of care and verbalizes understanding of instructions. She was given the opportunity to ask questions and all questions answered. Thank you for allowing me to participate in her care Orders: Orders TSH reflex Free T4 Today K59.00 - Constipation, unspecified Vitamin D 25-OH (D2 and D3) Today E55.9 - Vitamin D deficiency, unspecified Vitamin B12 and Folate Today R19.7 - Diarrhea, unspecified Medications: New polyethylene glycol 3350 (Miralax) As directed by gastroenterology department at [facility] 238 grams PO ONCE 238 grams 0RF Z12.11 - Encounter for screening for malignant neoplasm of colon hydrocortisone 2.5% (Proctosol HC) 1 appl [place] BID-QID PRN 30 grams 2RF hemorrhoids K64.9 - Unspecified hemorrhoids Coding Level of Care Code New Pt Level 3 (98326) Diagnoses Screen for colon cancer Z12.11 Slow transit constipation K59.01 Constipation type: slow transit constipation Time Spent (min) 40 Comment 30 minutes spent with patient and additional 10 minutes spent reviewing her records
[2025-06-11 14:49] VITALS: BP 125/78; PULSE 84; BMI 25.5
--- OUTSIDE RECORDS SUMMARY | 2025-06-11 17:51 | XMS_ITS | Encounter Summary ---
Author Organization [employer] Address [address] [place] [address] [address] [place] [address] Care Team Providers Care Landfill Gas Collection Operator Name Role Phone Name, Storm BECKWITH Primary Care Provider [phone] Reason for Visit * Reason Onset Date Comments CHARTPREP 06/06/2025 Encounter Details Date Type Department Care Team ([facility] st Contact Info) Description 06/06/2025 Telephone [facility]INE [address] [place], [place] [id number] Name, MD Storm [address] [place] [address] CHARTPREP Social History Tobacco Use Types Packs/Day [...] Images: done Referrals: complete 06/11/25 3:00 PM [facility] Rima Rosenberg Vaccines due: Covid, Flu, and RSV Screenings: colonoscopy Overdue care gaps: SBIRT, SDOH, PHQ-9, DELANEY-7, Oral health screening, and Disability screen documented in this encounter Plan of Treatment Upcoming Encounters Date Type Department Care Team (Late st Contact Info) Description 09/02/2025 9:00 AM EST Office Visit [facility] [address] [place] [address] Name, MD Storm [address] [place] [address] documented as of this encounter Visit Diagnoses Not on filedocumented in this encounter Additional Health Concerns Assessment Noted Time PHQ-9 Depression Total Score: 24 024 11:10 AM EDT documented as of this encounter Care Teams Landfill Gas Collection Operator Relationship Specialty Start Date End Date NameStorm MD [address] [place] [id number] PCP - General Family Medicine 05/18/17 documented as of this encounter
--- OUTSIDE RECORDS SUMMARY | 2025-06-11 17:51 | XMS_ITS | Encounter Summary ---
Author Organization [employer] Address [address] [place] [address] [address] [place] [address] Care Team Providers Care Art Instructor Name Role Phone Name, Storm BECKWITH Primary Care Provider [phone] Encounter Details Date Type Department Care Team (Latest Contact Info) Description 05/07/2019 Abstract [facility] CONVERSIONS Dental, Provider, DDS Social History Tobacco [...] Visit [facility] MEDICINE [address] [place] [address] NameStorm MD [address] [place] [address] documented as of this encounter Visit Diagnoses Not on filedocumented in this encounter Care Teams Art Instructor Relationship Specialty Start Date End Date Storm Mayo MD [address] [place] [address] PCP - General Family Medicine 05/18/17 documented as of this encounter
--- OUTSIDE RECORDS SUMMARY | 2025-06-11 17:51 | XMS_ITS | Encounter Summary ---
Author Organization [employer] [facility] Address [address] [place] [address] [address] [place] [address] Care Team Providers Care Plate Cleaner Name Role Phone Name, Storm BECKWITH Primary Care Provider [phone] Encounter Details Date Type Department Care Team (Latest Contact Info) Description 02/24/2021 Abstract [facility] CONVERSIONS Dental, Provider, DDS Social History [...] Description 09/02/2025 9:00 AM EST Office Visit [facility] [address] [place] [address] NameStorm MD [address] [place] [address] documented as of this encounter Visit Diagnoses Not on filedocumented in this encounter Care Teams Plate Cleaner Relationship Specialty Start Date End Date Storm Mayo MD [address] [place] [address] PCP - General Family Medicine 05/18/17 documented as of this encounter
--- OUTSIDE RECORDS SUMMARY | 2025-06-11 17:51 | XMS_ITS | Encounter Summary ---
Author Organization [employer] Address [address] [place] [address] [address] [place] [address] Care Team Providers Care Pilot Highway Patrol Name Role Phone Name, Storm BECKWITH Primary Care Provider [phone] Encounter Details Date Type Department Care Team (Late st Contact Info) Description 10/21/[address] [facility] [address] [place] [address] Tarsha Fraire LPN Social History Tobacco Use [...] Description 09/02/2025 9:00 AM EST Office Visit [facility] [address] [place] [address] Storm Mayo MD [address] [place] [address] documented as of this encounter Visit Diagnoses Not on filedocumented in this encounter Care Teams Pilot Highway Patrol Relationship Specialty Start Date End Date Storm Mayo MD [address] [place] [address] PCP - General Family Medicine 05/18/17 documented as of this encounter
--- OUTSIDE RECORDS SUMMARY | 2025-06-11 17:51 | XMS_ITS | Encounter Summary ---
Author Organization [employer] Address [address] [facility] 7t [place] [address] Care Team Providers Care Internet Cafe Manager Name Role Phone Name, Storm BECKWITH Primary Care Provider [phone] Encounter Details Date Type Department Care Team [...] Pests such as bugs, ants, or mice;Lead [place] or Pipes;Mold;Inadequate heat 06/10/2025 Food Insecurity Answer [...] Nearly every day 06/10/2025 9:06 AM [place] u[place] * Feeling tired or having little [...] Description 09/02/2025 9:00 AM EST Office Visit [facility] [address] [place] [address] Name, MD Storm [address] [place] [address] documented as of this encounter Visit Diagnoses Not on filedocumented in this encounter Additional Health Concerns Assessment Noted Time PHQ-9 Depression Total Score: 17 025 9:06 AM EDT documented as of this encounter Care Teams Internet Cafe Manager Relationship Specialty Start Date End Date Name, MD Storm [address] [place] [address] PCP - General Family Medicine 05/18/17 documented as of this encounter
--- OUTSIDE RECORDS SUMMARY | 2025-06-11 17:51 | XMS_ITS | Encounter Summary ---
Author Organization [employer] Address [address] [place] [address] [address] [place] [address] Care Team Providers Care Behavioral Health Director Name Role Phone Name, Storm BECKWITH Primary Care Provider [phone] Encounter Details Date Type Department Care Team (Latest Contact Info) Description 12/10/2019 Abstract [facility] CONVERSIONS Dental, Provider, DDS Social History [...] Description 09/02/2025 9:00 AM EST Office Visit [facility] MED[facility] [address] [place] [address] NameStorm MD [address] [place] [address] documented as of this encounter Visit Diagnoses Not on filedocumented in this encounter Care Teams Behavioral Health Director Relationship Specialty Start Date End Date Storm Mayo MD [address] [place] [address] PCP - General Family Medicine 05/18/17 documented as of this encounter
--- OUTSIDE RECORDS SUMMARY | 2025-06-11 17:51 | XMS_ITS | Clinical Summary ---
Author Organization [employer] Address [address] [place] [address] 7t [place] [address] Care Team Providers Care Wire Technician Name Role Phone Name, Storm BECKWITH Primary Care Provider [phone] Allergies Active Allergy Reactions Criticality Noted Date [...] Description 06/10/2025 9:00 AM EDT Office Visit [facility] [address] [place] [phone] Storm Mayo MD Hypertension, unspecified type (Primary Dx); On statin therapy; Screening for HIV (human immunodeficiency virus); Need for hepatitis C screening test 06/10/2025 Travel 06/06/2025 Telephone [facility] [address] [place] [phone] Storm Mayo MD CHARTPREP 06/04/2025 Refill [facility] [address] [place], [place] [phone] Storm Mayo MD Vitamin D deficiency 04/14/2025 9:00 AM EDT Office Visit [facility] [address] [place] [address] Karis Traore MD Subacute pansinusitis (Primary Dx) 04/14/2025 Travel 04/08/2025 Refill [facility] [address] [place] [address] Storm Mayo MD from Last 3 Months [...] Pests such as bugs, ants, or mice;Lead [place] or Pipes;Mold;Inadequate heat 06/10/2025 Food Insecurity Answer [...] Description 09/02/2025 9:00 AM EST Office Visit [facility] [address] [place] [address] Name, MD Storm [address] [place] [address] Health Maintenance Due Date Last Done Comments CT Colonography 1965 FIT DNA/Cologuard 1965 FIT 1965 FOBT 1965 Sigmoidoscopy 1965 RSV Patients and Patients Aged 60 years [...] Pap Smear 12/16/2027 12/15/2022, 11/13/2019 Lipid Panel 06/10/2030 06/10/2025, 12/31, 01/17/2023, Additional history exists DTaP/Tdap/Td Vaccines (3 - Td or Tdap) 05/23/2033 05/23/2023, 08/01/2012, 04/23/2008 Zoster Vaccines Completed 02/23/2023, 12/16/2022 Pneumococcal Vaccine: 50+ Years Completed 05/10/2024 HIV Screening Completed 06/10/2025 Hepatitis C Screening Completed 06/10/2025 HIB Vaccines Aged Out No longer eligi [...] Procedure Name Priority Date/Time Associated Diagnosis Comments TSH W/REFLEX TO FT4 Routine 06/11/2025 3 :34 PM EDT HEPATITIS C AB W/REFL TO HCV RNA, [...] EDT Hypertension, unspecified type On statin therapy POCT RAPID STREP A Routine 04/14/2025 9: 13 AM EDT Subacute pansinusitis POCT COVID-19 AG CUMMINS ID NOW Routine 04/14/2025 9:13 AM EDT Subacute pansinusitis BI MAMMOGRAM SCREENING TOMOSYNTHESIS BILATERAL Routine 01/28/2025 11:25 AM EDT IMAGE-GUIDED PAP W/AGE BASED SCR PROTOCOLS Routine 12/15/2022 10:55 AM EDT Cervical cancer screening HM COLONOSCOPY Routine 10/21/2014 from Last 3 Months or Most Recently Relevant to Health Maintenance Results * TSH with Reflex to Free T4 (06/11/2025 3:34 PM EDT) TSH reflex Free T4 0.71 0.32 - 4.0 uIU/mL [facility] 06/11/2025 3:34 PM EDT 06/11/2025 3:35 PM EDT us Generic External Data Provider LAB BLOOD ORDERAB LES Final Result [facility] [address] [place] [phone] * Hepatitis C Antibody with Reflex to HCV, RNA, Quantitative, Real-Time PCR (06/10/2025 9:31 AM EDT) Hepatitis C Antibody Nonreactive Nonreactive [facility] Comment:Antibodies to HCV no t detected; does not exclude early acuteHCV infection. Blood Venous blood specimen / Unknown 06/10/2025 9:31 AM EDT 06/10/2025 11:20 AM EDT us Storm Mayo MD LAB BLOOD ORDERABLES Final Resul t Performing Organization Address [facility] Co de Phone Number [facility] [address] [place] [phone] [phone] * HIV-1/2 Antigen and Antibodies, Fourth Generation, with Reflexes (06/10/2025 9:31 AM EDT) HIV AB/AG Nonreactive Nonreactive [facility] Comment:HIV-1 p24 Ag and/or HIV-1/HIV-2 Ab not detected.A test result that is nonreactive does not exclude thepossibility of exposure to or infection with HIV-1 and/orHIV-2. Nonreactive results in this assay for individualswith prior exposure to HIV-1 and/or HIV-2 may be due toantigen and antibody levels that are below the limit ofdetection of this assay.The [employer] HIV Ag/Ab Combo assay result andsupplemental assay results should be interpreted inconjunction with the patient's clinical presentation,history and other laboratory results. If the results areinconsistent with clinical evidence, additional testing issuggested to confirm the result. Blood Venous blood specimen / Unknown 06/10/2025 9:31 AM EDT 06/10/2025 11:20 AM EDT us Storm Mayo MD LAB BLOOD ORDERABLES Final Resul t Performing Organization Address [facility]/ZIP Co de Phone Number [facility] [address] [place] [phone] * (ABNORMAL) Lipid Panel, Standard (06/10/2025 9:31 AM EDT) Triglycerides 184(H) <150 mg/dL [facility] Comment:Desirable Triglyceri de: less than 150 mg/dLBorderline High Triglyceride 150-199 mg/dLHigh Triglyceride: 200-499 mg/dLVery High Triglyceride: greater than or equal to 5OO mg/dL Cholesterol 162 <200 mg/dL [facility] Comment:Desirable Cholestero l: less than 200 mg/dLBorderline High Cholesterol: 200-239 mg/dLHigh Cholesterol: greater than 239 mg/dL LDL Cholesterol Calculated 79 <100 mg/dL [facility] Comment:Desirable LDL: less than 100 mg/dLNear Optimal/Above Optimal LDL: 110- 129 mg/dLBorderline High LDL: 130-159 mg/dLHigh LDL: 160-189 mg/dLVery High LDL: greater than or equal to 190 mg/dL HDL Cholesterol 47 >40 mg/dL [facility] Comment:Desirable HDL: great er than 40 mg/dL Note: This HDL assay may give artificially low results in patients with liver disease. Blood Venous blood specimen / Unknown 06/10/2025 9:31 AM EDT 06/10/2025 11:20 AM EDT us Storm Name MD LAB BLOOD ORDERABLES Final Resul t [facility] [address] [place] [phone] * (ABNORMAL) Comprehensive Metabolic Panel (06/10/2025 9:31 AM EDT) Sodium 142 135 - 145 mmol/L [facility] Potassium 3.9 3.3 - 5.1 mmol/L [facility] Chloride 104 96 - 108 mmol/L [facility] Carbon Dioxide 29 22 - 29 mmol/L [facility] Anion Gap 13 12 - 20 [facility] Urea Nitrogen (BUN) 29(H) 9 - 16 mg/dL [facility] Creatinine, Serum 0.81 0.5 - 1.4 mg/dL [facility] Estimated Glomerular Filt Rate >60 [facility] Comment:Chronic Kidney Disea se: Estimated GFR < 60 mL/min/1.43t3Pzqffh Kidney Disease: Estimated GFR < 15 mL/min/1.73m2 Glucose 89 60 - 115 mg/dL [facility] Calcium 9.2 8.4 - 10.2 mg/dL [facility] Bilirubin, Total 0.5 0.0 - 1.0 mg/dL [facility] Aspartate Amino Transferase 32(H) 5 - 31 U/L [facility] Alanine Aminotransferase 24 0 - 31 U/L [facility] Total Protein 7.5 6.5 - 8.0 g/dL [facility] Albumin Level 4.5 3.5 - 5.0 g/dL [facility] Alkaline Phosphatase 81 39 - 117 U/L [facility] Blood Venous blood specimen / Unknown 06/10/2025 9:31 AM EDT 06/10/2025 11:20 AM EDT Storm Mayo MD LAB BLOOD ORDERABLES Final Resul t [facility] [address] [place] [phone] * POCT COVID-19 Ag Cummins ID NOW (04/14/2025 9:13 AM EDT) Pathologist [facility] Coronavirus Antigen PCR Negative Negative, Indeterminate, None Detected, Invalid, Specimen unsatisfactory for evaluation, Weakly Positive, 2+ Swab 04/14/2025 9:13 AM EDT Karis Traore MD POINT OF CARE TEST ENTER /EDIT ORDERABLES Final Result * POCT rapid strep A manually resulted (04/14/2025 9:13 AM EDT) Pathologist [facility] Rapid Strep A Screen Negative Negative, None Detected Swab 04/14/2025 9:13 AM EDT Karis Traore MD POINT OF CARE TEST ENTER /EDIT ORDERABLES Final Result * BI Mammogram Screening Tomosynthesis Bilateral (01/28/2025 11:25 AM EDT) Anatomical Region Laterality Modality Breast Bilateral Mammography 01/28/2025 11:2 5 AM EDT Narrative 02/02/2025 6:59 PM EDT [facility] [address] [place], [place] [address] Mammography Report Signed Patient: Merna Goff MR# : [id number] : 1965 Acct:[id number] Age/Sex: 59 / F ADM Date: 01/28/25 Loc: HO.MAMMO Attending Dr: Storm Mayo MD Ordering Physician: Storm Mayo MD Results: 2Benign Fi ndings Date of Service: 01/28/25 Follow Up: 1 Year From Orig inal Mammogram Procedure(s): MM tomosynthesis screening BI Accession Number(s): [id number] cc: Storm Mayo MD EXAMINATION: MM SCREENING [...] Anabel Carbajal DO 02/02/2025 06:56 PM EDT Dictated By: Anabel Carbajal DO Signed By: <Electronically signed by Anabel Carbajal DO in OV> 02/02/25 4666 DD/ 1125 TD/TT: 01/28/25 1145 Assistant Gm Of Content & Delivery: Procedure Note Donotuseinterpreter, Image - 02/02/2025 Charmaine [facility] [address] [place] [address] Mammography Report Signed Patient: Merna Goff LMR# : [id number] : 1965Acct:[id number] Age/Sex: 59 / FADM Date: 01/28/25 Loc: HO.MAMMO Attending Dr: Storm Mayo MD Ordering Physician: Storm Mayo MDResults: 2Benign Fi ndings Date of Service: 01/28/25Follow Up: 1 Year From Orig inal Mammogram Procedure(s): MM tomosynthesis screening BI Accession Number(s): [id number] cc: Storm Mayo MD EXAMINATION: MM SCREENING [...] Anabel Carbajal DO 02/02/2025 06:56 PM EDT Dictated By: Anabel Carbajal DO Signed By: <Electronically signed by Anabel Carbajal DO in OV> 02/02/25 1856 DD/ 1125 TD/TT: 01/28/25 1145 Assistant Gm Of Content & Delivery: Storm Mayo MD IM BI PROCEDURES Edited Result - Final * Image-Guided Pap with Age-Based Screening Protocols (12/15/2022 10:55 AM EDT) Comment [facility] Comment: This order for age-based cervical cancer and STI screening follows ACOG guidelines(PB 168, 140, WPB841). See individual assays for performing site location. Clinical Information: None given [facility] LMP: NONE GIVEN [facility] Prev. PAP: NONE GIVEN [facility] Prev. BX: NONE GIVEN [facility] SOURCE: None given [facility] Statement Of Adequacy: [facility] Comment: Satisfactory for evaluation. Endocervical/transformation zone component absent. Interpretation/ Result: Negative for intraepithelial lesion or malignancy. [facility] COMMENT: This Pap test has been evaluated with computer assisted technology. [facility] Cytotechnologis t: [facility] Comment: DMM, CT(ASCP) CT screening location: [place] [address] (Always Message) [facility] Comment: EXPLANATORY NOTE: The Pap is a [...] HPV nRNA E6/E7 Not Detected Not Detected [facility] Comment: Methodology: Space Operations Officer-Mediated Amplification This assay detects E6/E7 viral messenger RNA (mRNA) from 14 high-risk HPV types (16,18,31,33,35,39,45,51,52,56,58,59,66,68). Cervical sources are required for HPV testing. If a vaginal source from a patient who has had a total hysterectomy with removal of cervix was submitted, please contact the testing laboratory for alternative testing options. For additional information, please refer to http://education.[facility]/faq/NFW097j1 (This link if provided for information/ educational purposes only.) Cytology specimen container (physical object) 12/15/2022 10:55 AM EDT 12/16/2022 7:33 AM EDT Millicent Brewer CNM LAB BLOOD ORDERABLES Aby farrar Result [facility] [address], [place] [address] [facility] [address] [place] [phone] * Colonoscopy (10/21/2014) Colonoscopy Normal Normal [facility] External Provider HEALTH MAINTENANCE Final Result from Last 3 Months or Most Recently Relevant to Health Maintenance Insurance [employer] Care Teams Wire Technician Relationship Specialty Start Date End Date Name, MD Storm [address] [place] [address] PCP - General Family Medicine 05/18/17
--- OUTSIDE RECORDS SUMMARY | 2025-06-11 17:51 | XMS_ITS | Encounter Summary ---
Author Organization [facility] Address [address] [place] [address] 7t [place] [address] Care Team Providers Care Credit Counselor Name Role Phone Name, Storm BECKWITH Primary Care Provider [phone] Encounter Details Date Type Department Care Team (Late Contact Info) Description 03/14/2023 Abstract [facility] [address] [place] [address] [phone] Name, MD Storm [address] [place] [address] [phone] Social History Tobacco Use Types Packs/Day Years [...] Description 09/02/2025 9:00 AM EST Office Visit [facility] [address] [place] [phone] Name, MD Storm [address] [place] [phone] documented as of this encounter Visit Diagnoses Not on filedocumented in this encounter Additional Health Concerns Assessment Noted Time PHQ-9 Depression Total Score: 4 01/14/20 23 10:14 AM EDT documented as of this encounter Care Teams Credit Counselor Relationship Specialty Start Date End Date Name, MD Storm [address] [place] [address] PCP - General Family Medicine 05/18/17 documented as of this encounter
--- OUTSIDE RECORDS SUMMARY | 2025-06-11 17:51 | XMS_ITS | Encounter Summary ---
Author Organization [employer] [facility] Address [address] [place] [address] 7t [place] [address] Care Team Providers Care Bioinformatics Assistant Name Role Phone Name, Storm BECKWITH Primary Care Provider [phone] Encounter Details Date Type Department Care Team (Late Contact Info) Description 2023 Abstract [facility] [address] [place] [address] [phone] Name, MD Storm [address] [place] [address] [phone] Social History Tobacco Use Types Packs/Day Years [...] Description 09/02/2025 9:00 AM EST Office Visit [facility] [address] [place] [address] [phone] Name, MD Storm [address] [place] [phone] documented as of this encounter Visit Diagnoses Not on filedocumented in this encounter Additional Health Concerns Assessment Noted Time PHQ-9 Depression Total Score: 4 01/14/20 23 10:14 AM EDT documented as of this encounter Care Teams Bioinformatics Assistant Relationship Specialty Start Date End Date Name, MD Storm [address] [place] [address] PCP - General Family Medicine 05/18/17 documented as of this encounter
== END 2025-06-11 15:27 | disposition home or self-care (01) ==
LOC: HO.HGI 14:35
PROVIDERS: PCP Internal Medicine Geriatric Medicine; Visit Provider Nurse Practitioner Family
DX: Z01.818 Encounter for other preprocedural examination (principal); Z12.11 Encounter for screening for malignant neoplasm of colon; K59.01 Slow transit constipation
CPT/HCPCS: 99203

== ENCOUNTER 2025-06-11 14:35 | Outpatient (REF) | payer MEDICAID, SELFPAY ==
[2025-06-11 18:01] LABS: Folate 12.9 ng/mL (> or = 4.0); Vitamin B12 390 pg/mL (200-900)
[2025-06-15 15:23] LABS: Vitamin D 25-OH, D2 <4 ng/mL; Vitamin D 25-OH, D3 57 ng/mL; Vitamin D 25-OH, Total 57 ng/mL (30-100)
== END 2025-06-11 14:36 | disposition home or self-care (01) ==
LOC: HO.LAB 14:35
PROVIDERS: Visit Provider Nurse Practitioner Family
DX: Z12.11 Encounter for screening for malignant neoplasm of colon (principal); K59.01 Slow transit constipation; K64.9 Unspecified hemorrhoids; R19.7 Diarrhea, unspecified; E55.9 Vitamin D deficiency, unspecified
CPT/HCPCS: 36415; 82306; 82607; 82746; 84443; 99212

== ENCOUNTER 2025-08-22 15:23 | Outpatient (AMB) | payer MEDICAID, SELFPAY ==
--- NOTE | 2025-08-22 15:29 | A.OFFVIS_ITS ---
Vital Signs 08/22/25 15:35 Height 5 ft 1 in Weight 139 lb BMI 26.3 BP 128/74 Blood Pressure Location Rt brachial Position Sitting Pulse 66 Pulse Source Pulse Oximeter Pulse Oximetry (%) 97 Oxygen Delivery Method Room Air Intake Visit Reasons: Follow up labs Intake Note: Est pt for mgmt of GERD + CIC. CC: C.O. constipation, abd pain, and bloating despite current therapies. Pt does confirm she is taking all of her current Rx w/o complication; this includes her PPI which she states is working as intended. Design Studio Consultant Required: Yes Design Studio Consultant Services: Design Studio Consultant Present Design Studio Consultant Name: Lor [id number] + [facility] Information Interpreted: clinical only Accompanied by: Self / Same As Patient Allergies apple (APPLE) Allergy (Severe, Verified 08/22/25 15:29) ITCHING IN THROAT pollen extracts (POLLEN) Allergy (Unknown, Verified 08/22/25 15:29) NASAL SYMPTOMS HAIR DYE Allergy (Unknown, Uncoded 08/22/25 15:29) UNKNOWN HPI HPI Follow up labs: Details: LAST CISIT: Screen for colon cancer Constipation Plan Patient will start taking Dulcolax daily. Increase fluid intake and activity to promote better bowel motility. Will check thyroid, vitamin-D, B12 and folate. Patient will return in 10 weeks to discuss the prep. Message sent to surgical schedulers to book procedure for patient. She is agreeable to current plan of care and verbalizes understanding of instructions. She was given the opportunity to ask questions and all questions answered. ? Thank you for allowing me to participate in her care Orders TSH reflex Free T4 Today K59.00 Vitamin D 25-OH (D2 and D3) Today E55.9 Vitamin B12 and Folate Today R19.7 New polyethylene glycol 3350 (Miralax) As directed by gastroenterology department at [facility] 238 grams PO ONCE 238 grams 0RF Z12.11 hydrocortisone 2.5% (Proctosol HC) [address] BID-QID PRN 30 grams 2RF hemorrhoids K64.9 TODAY'S VISIT Patient is here today for follow-up and to discuss going for colonoscopy. Patient reports that she continues to be constipated and have abdominal bloating. Currently she is taking MiraLax and stool softeners. Patient continues to have trouble moving her bowels. Patient denies melena, hematochezia, unintentional weight loss or ribbon like stools. Patient denies any dyspepsia, dysphagia or odynophagia. Reports pantoprazole has been working for her. Symptoms of acid reflux are suppressed. Patient denies any issues with anesthesia in the past. No history of sleep apnea. Patient is not on any anticoagulation medication. Denies any cardiac or respiratory symptoms. [facility] Medical History Vitamin D deficiency Depression Asthma Gastritis High cholesterol HTN (hypertension) Social History Alcohol intake: former Patient Tobacco Use Status: Never used Tobacco Current occupational status: disabled Current occupation: right hand dominant Review of Systems Const Denies weight gain and Denies weight loss ENT Reports no additional complaints, Denies dysphagia and Denies odynophagia Card Reports no additional complaints Resp Reports no additional complaints GI Denies abdominal pain, Denies belching, Denies melena, Denies bloating, Denies change in bowel habits, Reports constipation, Denies dysphagia, Denies excessive flatus, Denies dyspepsia, Denies heartburn, Denies diarrhea, Denies loose stools, Denies nausea, Denies odynophagia and Denies vomiting Reports no additional complaints Musc Reports no additional complaints Neuro Reports no additional complaints Psych Reports no additional complaints Endo Reports no additional complaints Physical Exam Vital Signs: Last Vital Signs Pulse 66 08/22/25 15:35 BP 128/74 08/22/25 15:35 Pulse Ox 97 08/22/25 15:35 Oxygen Delivery Method Room Air 08/22/25 15:35 BMI result Body Mass Index 26.3 Const General: healthy appearing, no acute distress and well developed Nutritional Appearance: well nourished Orientation/consciousness: patient oriented x3 Resp Effort & Inspection: normal respiratory effort, able to speak in complete sentences, no tracheal deviation and symmetric chest movement Auscultation: clear to auscultation bilaterally Cardio Rate: regular rate GI Inspection: Yes normal to inspection and No distended Palpation (GI): Soft to palpation, not firm, nontender and No hepatosplenomegaly present Auscultation: normal bowel sounds General: Yes no CVA tenderness Back/Spine/Pelvis Back: no CVA tenderness Skin General skin exam: elasticity normal, turgor normal and dry skin Neuro General: patient oriented x3 Psych Appearance: grossly normal Mental Status: mental status grossly normal Assessment & Plan Assessment & Plan (1) Encounter for screening for malignant neoplasm of colon: Code(s): Z12.11 - Encounter for screening for malignant neoplasm of colon (2) Constipation: Code(s): K59.00 - Constipation, unspecified Qualifiers: Constipation type: slow transit constipation Qualified Code(s): K59.01 - Slow transit constipation (3) GERD (gastroesophageal reflux disease): Code(s): K21.9 - Gastro-esophageal reflux disease without esophagitis Qualifiers: Esophagitis presence: esophagitis presence not specified Qualified Code(s): K21.9 - Gastro-esophageal reflux disease without esophagitis Plan Patient can continue taking Dulcolax. Increase fluid intake and activity to promote better bowel motility. Continue pantoprazole. Patient should be sent also for upper endoscopy to evaluate. History of gastritis in the past. What to expect before during and after procedure discussed with patient. Stressed the importance of good bowel prep and clear liquid diet day before procedure.. Patient will call our office patient to have any GI concerning symptoms. Patient is agreeable to current plan of care and verbalizes understanding of instructions. She was given the opportunity to ask questions and all questions answered. Thank you for allowing me to participate in her care Medications: New bisacodyl (Dulcolax (bisacodyl)) 10 mg (2 x 5 mg) PO BEDTIME 180 tabs 4RF polyethylene glycol 3350 (Miralax) As directed by gastroenterology department at [facility] 238 grams PO ONCE 238 grams 0RF Z12.11 - Encounter for screening for malignant neoplasm of colon Coding Level of Care Code Est Pt Level 3 (81303) Diagnoses Encounter for screening for malignant neoplasm of colon Z12.11 Slow transit constipation K59.01 Constipation type: slow transit constipation Gastroesophageal reflux disease, unspecified whether esophagitis present K21.9 Esophagitis presence: esophagitis presence not specified Time Spent (min) 30 Comment 20 minutes spent with patient and additional 10 minutes spent reviewing her records
--- OUTSIDE RECORDS SUMMARY | 2025-08-22 15:30 | XMS_ITS | Encounter Summary ---
Author Organization [employer] Address [address] [place] [address] [address] [place] [address] Care Team Providers Care Gas Station Operator Name Role Phone Name, Storm BECKWITH Primary Care Provider [phone] Encounter Details Date Type Department Care Team (Latest Contact Info) Description 05/07/2019 Abstract [facility] Dental, Provider, DDS Social History [...] Description 09/02/2025 9:00 AM EST Office Visit [facility] [address] [place] [address] NameStorm MD [address] [place] [address] documented as of this encounter Visit Diagnoses Not on filedocumented in this encounter Care Teams Gas Station Operator Relationship Specialty Start Date End Date Storm Mayo MD [address] [place] [address] PCP - General Family Medicine 05/18/17 documented as of this encounter
--- OUTSIDE RECORDS SUMMARY | 2025-08-22 15:30 | XMS_ITS | Clinical Summary ---
Author Organization [employer] Address [address] [place] [address] 7t [place] [address] Care Team Providers Care Master Sheet Clerk Name Role Phone Name, Storm BECKWITH Primary Care Provider [phone] Allergies Active Allergy Reactions Criticality Noted Date [...] a day 1 kit 01/14/20 25 Active atorvastatin (Lipitor) 20 MG tablet [...] DAY 90 tablet 3 06/05/20 25 Active pantoprazole (ProtoNix) 20 MG EC tabletIndicatio ns:Heartburn TAKE 1 TABLET BY MOUTH EVERY DAY IN THE MORNING DO NOT BREAK, CRUSH, DISSOLVE OR CHEW 90 tablet 1 08/04/20 25 Active pantoprazole (ProtoNix) 20 MG EC tabletIndicatio ns:Heartburn TAKE 1 TABLET BY MOUTH EVERY DAY IN THE MORNING DO NOT BREAK, CRUSH, DISSOLVE OR CHEW 90 tablet 1 02/04/20 25 2024 Discontinued Active Problems Problem Noted Date [...] Encounters Date Type Department Care Team Description 08/03/[address] [address] Storm Mayo MD Heartburn 06/16/[address] [address] Storm Mayo MD Nurse Triage 06/12/2025 Results Follow-Up [address] [address] Storm Mayo MD Comprehensive Metabolic Panel, Lipid Panel, Standard, HIV-1/2 Antigen and Antibodies, Fourth Generation, with Reflexes, Hepatitis C Antibody with Reflex to HCV, RNA, Quantitative, Real-Time PCR 06/10/2025 9:00 AM EDT Office Visit [address] [address] Storm Mayo MD Hypertension, unspecified type (Primary Dx); On statin therapy; Screening for HIV (human immunodeficiency virus); Need for hepatitis C screening test 06/10/2025 Travel 06/06/[address] [address] Storm Mayo MD CHARTPREP 06/04/2025 Refill [facility] MED [facility] PEDS [address] [place], [place] [phone] Storm Mayo MD Vitamin D deficiency from Last 3 Months Immunizations Immunization Administration [...] Pests such as bugs, ants, or mice;Lead Daisy or Pipes;Mold;Inadequate heat 06/10/2025 Food Insecurity Answer [...] EST Office Visit [facility] MEDICINE [address] [place] [phone] Name, MD Storm [address] [place] [address] Health Maintenance Due Date Last Done Comments CT Colonography 1965 FIT DNA/Cologuard 1965 FIT 1965 FOBT 1965 Sigmoidoscopy 1965 RSV Patients and Patients Aged 60 years or older (1 - Risk 50-74 years 1-dose series) 2014 Colonoscopy 10/21/2024 10/21/2014 Colorectal Cancer Screening 10/21/2024 [...] Procedure Name Priority Date/Time Associated Diagnosis Comments VITAMIN D 25-OH (D2 AND D3) Routine 06/11/2025 3:34 PM EDT VITAMIN B12/FOLATE, SERUM PANEL Routine 06/11/2025 3:34 PM EDT TSH W/REFLEX TO FT4 Routine 06/11/2025 3 [...] EDT Hypertension, unspecified type On statin therapy BI MAMMOGRAM SCREENING TOMOSYNTHESIS BILATERAL Routine 01/28/2025 11:25 AM EDT IMAGE-GUIDED PAP W/AGE BASED SCR PROTOCOLS Routine 12/15/2022 10:55 AM EDT Cervical cancer screening HM COLONOSCOPY Routine 10/21/2014 from Last 3 Months or Most Recently Relevant to Health Maintenance Results * VITAMIN D 25-OH (D2 AND D3) (06/11/2025 3:34 PM EDT) Vitamin D, 25-OH, D2 <4 ng/mL [facility] Comment:This test was develo ped and its analytical performancecharacteristics have been determined by [employer] [place], [place]. It hasnot been cleared or approved by the U.S. Food and DrugAdministration. This assay has been validated pursuantto the CLIA regulations and is used for clinicalpurposes.THIS TEST WAS PERFORMED AT:[employer] [place] [address]QYPPUZCABHAY PADILLA MD,PHD Vitamin D, 25-OH, D3 57 ng/mL [facility] Comment:This test was gentry brenner and its analytical performancecharacteristics have been determined by [employer] [place], [place]. It hasnot been cleared or approved by the U.S. Food and DrugAdministration. This assay has been validated pursuantto the CLIA regulations and is used for clinicalpurposes. Vitamin D, 25-OH, Total 57 30 - 100 ng/mL [facility] Comment:Vitamin D, 25-Hydrox y reports concentrations of twocommon forms, 25-OHD2 and 25-OHD3. 25-OHD3 indicatesboth endogenous production and supplementation.25-OHD2 is an indicator of exogenous sources such asdiet or supplementation. Therapy is based onmeasurement of Total 25-OHD, with levels <20 ng/mLindicative of Vitamin D deficiency, while levelsbetween 20 ng/mL and 30 ng/mL suggest insufficiency.Optimal levels are > or = 30 ng/mL.For additional information, please refer tohttp://education.[employer]/faq/YRY972(This link is being provided for informational/educational purposes only.) 06/11/2025 3:34 PM EDT 06/11/2025 3:35 PM EDT us Generic External Data Provider LAB BLOOD ORDERAB LES Final Result [facility] [address] [place] [address] [phone] * Vitamin B12 (Cobalamin) and Folate Panel, Serum (06/11/2025 3:34 PM EDT) Vitamin B12 390 200 - 900 pg/mL [facility] Comment:NORMAL 200-900 PG/ML INDETERMINATE 160-199 PG/ML DEFICIENT < 160 PG/ML Folate 12.9 > or = 4.0 ng/mL [facility] Comment:Reference Values:> o r = 4.0 ng/mL< 4.0 ng/mL suggests folate deficiency Methotrexate, aminopterin and folinic acid(leucovorin) are chemotherapeutic agents whose molecularstructures are similar to folate; therefore, the Architectfolate assay cannot be used for patients using these drugs. 06/11/2025 3:34 PM EDT 06/11/2025 3:35 PM EDT Generic External Data Provider LAB BLOOD ORDERAB LES Final Result Performing Organization Address [facility] Co de Phone Number [facility] [address] [place] [phone] * TSH with Reflex to Free T4 (06/11/2025 3:34 PM EDT) TSH reflex Free T4 0.71 0.32 - 4.0 uIU/mL [facility] 06/11/2025 3:34 PM EDT 06/11/2025 3:35 PM EDT Generic External Data Provider LAB BLOOD ORDERAB LES Final Result Performing Organization Address [facility] de Phone Number [facility] [address] [place] [phone] * Hepatitis C Antibody with Reflex to HCV, RNA, Quantitative, Real-Time PCR (06/10/2025 9:31 AM EDT) Pathologist [facility] Hepatitis C Antibody Nonreactive Nonreactive [facility] Comment:Antibodies to HCV no t detected; does not exclude early acuteHCV infection. Blood Venous blood specimen / Unknown 06/10/2025 9:31 AM EDT 06/10/2025 11:20 AM EDT Storm Mayo MD LAB BLOOD ORDERABLES Final Resul t Performing Organization Address [facility] de Phone Number [facility] [address] [place] [phone] * HIV-1/2 Antigen and Antibodies, Fourth Generation, with Reflexes (06/10/2025 9:31 AM EDT) HIV AB/AG Nonreactive Nonreactive [facility] Comment:HIV-1 p24 Ag and/or HIV-1/HIV-2 Ab not detected.A test result that is nonreactive does not exclude thepossibility of exposure to or infection with HIV-1 and/orHIV-2. Nonreactive results in this assay for individualswith prior exposure to HIV-1 and/or HIV-2 may be due toantigen and antibody levels that are below the limit ofdetection of this assay.[facility] [employer] HIV Ag/Ab Combo assay result andsupplemental assay results should be interpreted inconjunction with the patient's clinical presentation,history and other laboratory results. If the results areinconsistent with clinical evidence, additional testing issuggested to confirm the result. Blood Venous blood specimen / Unknown 06/10/2025 9:31 AM EDT 06/10/2025 11:20 AM EDT us Storm Name LAB BLOOD ORDERABLES Final Resul t [facility] [address] [place] [address] [phone] * (ABNORMAL) Lipid Panel, Standard (06/10/2025 9:31 AM EDT) Triglycerides 184(H) <150 mg/dL [facility] Comment:Desirable Triglyceri de: less than 150 mg/dLBorderline High Triglyceride 150-199 mg/dLHigh Triglyceride: 200-499 mg/dLVery High Triglyceride: greater than or equal to 5OO mg/dL Cholesterol 162 <200 mg/dL [facility] Comment:Desirable Cholestero l: less than 200 mg/dLBorderline High Cholesterol: 200-239 mg/dLHigh Cholesterol: greater than 239 mg/dL LDL Cholesterol Calculated 79 <100 mg/dL [facility] Comment:Desirable LDL: less than 100 mg/dLNear Optimal/Above Optimal LDL: 110- 129 mg/dLBorderline High LDL: 130-159 mg/dLHigh LDL: 160-189 mg/dLVery High LDL: greater than or equal to 190 mg/dL HDL Cholesterol 47 >40 mg/dL [facility] Comment:Desirable HDL: great er than 40 mg/dL Note: This HDL assay may give artificially low results in patients with liver disease. Blood Venous blood specimen / Unknown 06/10/2025 9:31 AM EDT 06/10/2025 11:20 AM EDT us Storm Name LAB BLOOD ORDERABLES Final Resul t [facility] [address] [place] [phone] * (ABNORMAL) Comprehensive Metabolic Panel (06/10/2025 9:31 AM EDT) Sodium 142 135 - 145 mmol/L [facility] Potassium 3.9 3.3 - 5.1 mmol/L [facility] Chloride 104 96 - 108 mmol/L [facility] Carbon Dioxide 29 22 - 29 mmol/L [facility] Anion Gap 13 12 - 20 [facility] Urea Nitrogen (BUN) 29(H) 9 - 16 mg/dL [facility] Creatinine, Serum 0.81 0.5 - 1.4 mg/dL [facility] Estimated Glomerular Filt Rate >60 [facility] Comment:Chronic Kidney Disea se: Estimated GFR < 60 mL/min/1.30m8Qbldcn Kidney Disease: Estimated GFR < 15 mL/min/1.73m2 Glucose 89 60 - 115 mg/dL [facility] Calcium 9.2 8.4 - 10.2 mg/dL [facility] Bilirubin, Total 0.5 0.0 - 1.0 mg/dL [facility] Aspartate Amino Transferase 32(H) 5 - 31 U/L [facility] Alanine Aminotransferase 24 0 - 31 U/L [facility] Total Protein 7.5 6.5 - 8.0 g/dL [facility] Albumin Level 4.5 3.5 - 5.0 g/dL [facility] Alkaline Phosphatase 81 39 - 117 U/L [facility] Blood Venous blood specimen / Unknown 06/10/2025 9:31 AM EDT 06/10/2025 11:20 AM EDT Storm Mayo MD LAB BLOOD ORDERABLES Final Resul t [facility] [address] [facility] [place] [phone] * BI Mammogram Screening Tomosynthesis Bilateral (01/28/2025 11:25 AM EDT) Anatomical Region Laterality Modality Breast Bilateral Mammography 01/28/2025 11:2 5 AM EDT Narrative 02/02/2025 6:59 PM EDT [facility] [address] [place] [address] Mammography Report Signed Patient: Merna Goff MR# : [id number] : 1965 Acct:[id number] Age/Sex: 59 / F ADM Date: 01/28/25 Loc: HO.MAMMO Attending Dr: Storm Mayo MD Ordering Physician: Storm Mayo MD Results: 2Benign Fi ndings Date of Service: 01/28/25 Follow Up: 1 Year From Orig ina Mammogram Procedure(s): MM tomosynthesis screening BI Accession Number(s): [id number] cc: Storm Mayo MD EXAMINATION: MM SCREENING [...] 02/02/25 1856 DD/ 1125 TD/TT: 01/28/25 1145 Phone Operator: Procedure Note Donotuseinterpreter, Image - [facility]/02/[facility] [address] [place] [address] Mammography Report Signed Patient: Merna Goff LMR# : [id number] : 1965Acct:[id number] Age/Sex: 59 / FADM Date: 01/28/25 Loc: HO.MAMMO Attending Dr: Storm Mayo MD Ordering Physician: Storm Mayo MDResults: 2Benign Fi ndings Date of Service: 01/28/25Follow Up: 1 Year From Orig ina Mammogram Procedure(s): MM tomosynthesis screening BI Accession Number(s): [id number] cc: Storm Mayo MD EXAMINATION: MM SCREENING [...] 02/02/25 1856 DD/ 1125 TD/TT: 01/28/25 1145 Phone Operator: us Stormsosa FLORES BI PROCEDURES Edited Result - Final * Image-Guided Pap with Age-Based Screening Protocols (12/15/2022 10:55 AM EDT) Comment [facility] Comment: This order for age-based cervical cancer and STI screening follows ACOG guidelines(PB 168, 140, YTI023). See individual assays for performing site location. Clinical Information: None given [facility] LMP: NONE GIVEN [facility] Prev. PAP: NONE GIVEN [facility] Prev. BX: NONE GIVEN [facility] SOURCE: None given [facility] [place] Statement Of Adequacy: [facility] Comment: Satisfactory for evaluation. Endocervical/transformation zone component absent. Interpretation/ Result: Negative for intraepithelial lesion or malignancy. [facility] COMMENT: This Pap test has been evaluated with computer assisted technology. [facility] Cytotechnologis t: [facility] Comment: DMM, CT(ASCP) CT screening location: [place] [address] (Always Message) [facility] Comment: EXPLANATORY NOTE: The Pap is a [...] HPV nRNA E6/E7 Not Detected Not Detected [facility] Comment: Methodology: Fan Mail Editor-Mediated Amplification This assay detects E6/E7 viral messenger RNA (mRNA) from 14 high-risk HPV types (16,18,31,33,35,39,45,51,52,56,58,59,66,68). Cervical sources are required for HPV testing. If a vaginal source from a patient who has had a total hysterectomy with removal of cervix was submitted, please contact the testing laboratory for alternative testing options. For additional information, please refer to http://education.[employer]/faq/TKN013g1 (This link if provided for information/ educational purposes only.) Cytology specimen container (physical object) 12/15/2022 10:55 AM EDT 12/16/2022 7:33 AM EDT Millicent Brewer [facility] LAB BLOOD ORDERABLES Aby farrar Result [facility] [address], [place] [address] [facility] [address] [place] [address] * Colonoscopy (10/21/2014) Colonoscopy Normal Normal [facility] External Provider HEALTH MAINTENANCE Final Result from Last 3 Months or Most Recently Relevant to Health Maintenance Insurance [address] [place] [address] [facility] [address] [place] [address] [address] [place] [address] [address] [place] [address] Care Teams Master Sheet Clerk Relationship Specialty Start Date End Date Name, MD Storm [address] [place] [address] [place] [address] PCP - General Family Medicine 05/18/17
--- OUTSIDE RECORDS SUMMARY | 2025-08-22 15:30 | XMS_ITS | Encounter Summary ---
Author Organization [employer] Address [address] [place] [address] 7t [place] [address] Care Team Providers Care Conductor Sleeping Car Name Role Phone Name, Storm BECKWITH Primary Care Provider [phone] Encounter Details Date Type Department Care Team (Latest Contact Info) Description 12/10/2019 Abstract [facility] CONVERSIONS Dental, Provider, DDS Social History [...] Description 09/02/2025 9:00 AM EST Office Visit [facility] MEDICINE [address] [place] [address] NameStorm MD [address] [place] [address] documented as of this encounter Visit Diagnoses Not on filedocumented in this encounter Care Teams Conductor Sleeping Car Relationship Specialty Start Date End Date Storm Mayo MD [address] [place] [address] PCP - General Family Medicine 05/18/17 documented as of this encounter
--- OUTSIDE RECORDS SUMMARY | 2025-08-22 15:30 | XMS_ITS | Encounter Summary ---
Author Organization [employer] Address [address] [place] [address] 7t [place] [address] Care Team Providers Care Flare Breaker Name Role Phone Name, Storm BECKWITH Primary Care Provider [phone] Reason for Visit * Reason Onset Date Comments Nurse Triage 06/16/2025 Encounter Details Date Type Department Care Team ([facility] st Contact Info) Description 06/16/2025 Telephone [facility] MEDICINE [address] [place], [place] [phone] Name, MD Storm [address] [place] [address] Nurse Triage Social History Tobacco Use Types Packs/Day Years [...] Pests such as bugs, ants, or mice;Lead Ecru or Pipes;Mold;Inadequate heat 06/10/2025 Food Insecurity Answer [...] encounter Miscellaneous Notes * Telephone Encounter - Lety Shaw RN - 06/16/2025 12:08 PM EDT Triage call with [facility] [place] [id number] Tylorvanda. Pt reports Covid + home test taken 06/13/25. Pt symptoms are cough, headache, tactile fever, nasal congestion, back pain and weakness. This is not the first time that Pt has had Covid. Pt denies difficulty breathing, chest pain/pressure but, does report a burning feeling when coughing alot. Pt reports symptoms have been progressively getting better since Monday. Home care is reviewed with Pt adequate liquids 6-8 glasses daily especially warm liquids, monitor for fever treat if 101 with tylenol/motrin as needed, OTC cough suppressantor 2 tsp honey, cough drops, hard candy. Good hand washing. 06/18/25 will be 5 days and if Pt no longer with fever may go about as usual. Mask may be worn if needed. Pt agrees with home care disposition and Pt is advised to call back if symptoms worsen. Protocol Used: COVID-19 - Diagnosed or Suspected (Adult) Protocol-Based Disposition: Home Care Positive Triage Question: * COVID-19 diagnosed by positive lab test (e.g., PCR, rapid self-test kit) and mild symptoms (e.g.,cough, fever, others) and no complications or SOB * All higher-acuity triage questions were negative Care Advice Discussed: * Reassurance and Education - Positive COVID-19 Lab Test and Mild Symptoms * General Care Advice for COVID-19 Symptoms * Cough Medicines * Humidifier * Coughing Spells * Pain and Fever Medicines * Reasons To Call Back - Fever over 103 F (39.4 C) - Fever lasts over 3 days - Fever returns after being gone for 24 hours - Chest pain or difficulty breathing occurs - Cough or other symptoms last more than 3 weeks - You become worse * COVID-19 - Symptoms * COVID-19 - How to Protect Your Family and Yourself From Getting Sick * COVID-19 - How to Protect Others - When You Are Sick With COVID-19 * Clean Your Hands Often * Telephone Encounter - Kody Fletcher - 06/16/2025 10:55 AM EDT TC from pt report having a positive covid test n Wednesday 06/13 . Pt currently has a lot of body aches and is requesting medication Vincentian Speaking documented in this encounter Plan of Treatment Upcoming Encounters Date Type Department Care Team (Late st Contact Info) Description 09/02/2025 9:00 AM EST Office Visit [facility] MEDICINE [address] [place] [address] Name, MD Storm [address] [place] [phone] documented as of this encounter Visit Diagnoses Not on filedocumented in this encounter Additional Health Concerns Assessment Noted Time PHQ-9 Depression Total Score: 17 025 9:06 AM EDT documented as of this encounter Care Teams Flare Breaker Relationship Specialty Start Date End Date NameStorm MD [address] [place] [phone] PCP - General Family Medicine 05/18/17 documented as of this encounter
--- OUTSIDE RECORDS SUMMARY | 2025-08-22 15:30 | XMS_ITS | Encounter Summary ---
Author Organization [employer] Address [address] [place] [address] 7t [place] [address] Care Team Providers Care Senior Credit Analyst Name Role Phone Name, Storm BECKWITH Primary Care Provider [phone] Encounter Details Date Type Department Care Team (Latest Contact Info) Description 02/24/2021 Abstract [facility] CONVERSIONS Dental, Provider, DDS Social History Tobacco [...] 9:00 AM EST Office Visit [facility] MEDICINE [address] [place] [address] NameStorm MD [address] [place] [address] documented as of this encounter Visit Diagnoses Not on filedocumented in this encounter Care Teams Senior Credit Analyst Relationship Specialty Start Date End Date Storm Mayo MD [address] [place] [address] PCP - General Family Medicine 05/18/17 documented as of this encounter
--- OUTSIDE RECORDS SUMMARY | 2025-08-22 15:30 | XMS_ITS | Encounter Summary ---
Author Organization [employer] Address [address] [place] [address] [address]t [place] [address] Care Team Providers Care Tank Farm Gauger Name Role Phone Name, Storm BECKWITH Primary Care Provider [phone] Encounter Details Date Type Department Care Team (Late Contact Info) Description [address] [facility] MEDICINE [address] [place] [address] [phone] Name, MD Storm [address] [place] [address] [phone] Social History Tobacco Use Types Packs/Day Years [...] 09/02/2025 9:00 AM EST Office Visit [facility] MEDICINE [address] [place] [address] [phone] Name, MD Storm [address] [place] [phone] documented as of this encounter Visit Diagnoses Not on filedocumented in this encounter Additional Health Concerns Assessment Noted Time PHQ-9 Depression Total Score: 4 01/14/20 23 10:14 AM EDT documented as of this encounter Care Teams Tank Farm Gauger Relationship Specialty Start Date End Date Name, MD Storm [address] [facility] [place] [address] PCP - General Family Medicine 05/18/17 documented as of this encounter
--- OUTSIDE RECORDS SUMMARY | 2025-08-22 15:30 | XMS_ITS | Encounter Summary ---
Author Organization [employer] Address [address] [place] [address] 7t [place] [address] Care Team Providers Care Emergency Spill Response Technician Name Role Phone Name, Storm BECKWITH Primary Care Provider [phone] Encounter Details Date Type Department Care Team (Late st Contact Info) Description 10/21/2022 Orders Only [facility] MED [facility] PEDS [address] [place] [address] Tarsha Fraire LPN Social History Tobacco Use [...] Description 09/02/2025 9:00 AM EST Office Visit [facility] MEDICINE [address] [place] [address] Storm Mayo MD [address] [place] [address] documented as of this encounter Visit Diagnoses Not on filedocumented in this encounter Care Teams Emergency Spill Response Technician Relationship Specialty Start Date End Date Storm Mayo MD [address] [place] [address] PCP - General Family Medicine 05/18/17 documented as of this encounter
--- OUTSIDE RECORDS SUMMARY | 2025-08-22 15:30 | XMS_ITS | Encounter Summary ---
Author Organization [employer] Address [address] [place] [address] 7t [place] [address] Care Team Providers Care Patrol Deputy Sheriff Name Role Phone Name, Storm BECKWITH Primary Care Provider [phone] Encounter Details Date Type Department Care Team (Late Contact Info) Description 03/14/2023 Abstract [facility] MEDICINE [address] [place] [address] [phone] Name, MD Storm [address] [place] [address] [phone] Social History Tobacco Use Types Packs/Day Years [...] Description 09/02/2025 9:00 AM EST Office Visit [facility] MEDICINE [address] [place] [address] [phone] Name, MD Storm [address] [place] [address] documented as of this encounter Visit Diagnoses Not on filedocumented in this encounter Additional Health Concerns Assessment Noted Time PHQ-9 Depression Total Score: 4 01/14/20 23 10:14 AM EDT documented as of this encounter Care Teams Patrol Deputy Sheriff Relationship Specialty Start Date End Date Name, MD Storm [address] [place] [address] PCP - General Family Medicine 05/18/17 documented as of this encounter
[2025-08-22 15:35] VITALS: BP 128/74; PULSE 66; O2SAT 97; BMI 26.3
== END 2025-08-22 16:09 | disposition home or self-care (01) ==
LOC: HO.HGI 15:24
PROVIDERS: PCP Internal Medicine Geriatric Medicine; Visit Provider Nurse Practitioner Family
DX: Z01.818 Encounter for other preprocedural examination (principal); Z12.11 Encounter for screening for malignant neoplasm of colon; K59.01 Slow transit constipation; K21.9 Gastro-esophageal reflux disease without esophagitis
CPT/HCPCS: 99213

== ENCOUNTER → 2025-08-22 15:23 | Outpatient (BNVA) | payer MEDICAID, SELFPAY | PROVIDERS: PCP Internal Medicine Geriatric Medicine; Visit Provider Nurse Practitioner Family | DX: Z01.818 Encounter for other preprocedural examination (principal); K21.9 Gastro-esophageal reflux disease without esophagitis; K59.01 Slow transit constipation | CPT/HCPCS: 99212 ==